=== PATIENT | female | born 1935 | race Caucasian/White ===

== ENCOUNTER 2016-12-04 16:06 | Outpatient (CLI) | payer MEDICARE ==
[2016-12-05 16:55] LABS: INR-International Normal Ratio 3.1; Prothrombin Time 31.7 SEC (12.0-14.7)
== END 2016-12-04 16:07 | disposition home or self-care (01) ==
LOC: MADLABBHPM 16:06
PROVIDERS: ATTEND Family Medicine
DX: I48.91 Unspecified atrial fibrillation (principal)
CPT/HCPCS: 36415; 85610

== ENCOUNTER 2016-12-11 14:57 | Outpatient (CLI) | payer MEDICARE ==
[2016-12-11 15:18] LABS: INR-International Normal Ratio 2.4; Prothrombin Time 26.4 SEC (12.0-14.7)
== END 2016-12-11 14:58 | disposition home or self-care (01) ==
LOC: MADLABBHPM 14:57
PROVIDERS: ATTEND Family Medicine
DX: I48.91 Unspecified atrial fibrillation (principal)
CPT/HCPCS: 36415; 85610

== ENCOUNTER 2016-12-21 11:58 | Outpatient (CLI) | payer MEDICARE ==
--- NOTE | 2016-12-21 14:15 | RAD ---
TWO VIEWS LEFT HIP: Indication: Chronic left hip pain. Comparison: None. IMPRESSION: No acute fracture or subluxation. 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 POS: [facility]
--- NOTE | 2016-12-21 14:16 | RAD ---
TWO VIEWS RIGHT HIP: Indication: Chronic right hip pain. FINDINGS: There is mild degenerative arthrosis of the right hip. No acute fracture or subluxation is evident. There is diffuse osteopenia. IMPRESSION: No acute osseous abnormality. POS: [facility]
== END 2016-12-21 11:59 | disposition home or self-care (01) ==
LOC: MADRAD 11:58
PROVIDERS: ATTEND Family Medicine
DX: M25.551 Pain in right hip (principal)

== ENCOUNTER 2016-12-25 14:46 | Outpatient (CLI) | payer MEDICARE ==
[2016-12-25 15:21] LABS: INR-International Normal Ratio 1.7; Prothrombin Time 20.3 SEC (12.0-14.7)
== END 2016-12-25 14:47 | disposition home or self-care (01) ==
LOC: MADLAB 14:46
PROVIDERS: ATTEND Family Medicine
DX: I48.91 Unspecified atrial fibrillation (principal)
CPT/HCPCS: 36415; 85610

== ENCOUNTER 2017-01-09 12:23 | Outpatient (CLI) | payer MEDICARE ==
[2017-01-09 12:48] LABS: INR-International Normal Ratio 1.6; Prothrombin Time 19.5 SEC (12.0-14.7)
== END 2017-01-09 12:24 | disposition home or self-care (01) ==
LOC: MADLABBHPM 12:23
PROVIDERS: ATTEND Family Medicine
DX: Z51.81 Encounter for therapeutic drug level monitoring (principal); Z79.01 Long term (current) use of anticoagulants; I48.91 Unspecified atrial fibrillation
CPT/HCPCS: 36415; 85610

== ENCOUNTER 2017-01-15 13:14 | Outpatient (CLI) | payer MEDICARE ==
[2017-01-15 13:33] LABS: INR-International Normal Ratio 2.7; Prothrombin Time 28.5 SEC (12.0-14.7)
== END 2017-01-15 13:15 | disposition home or self-care (01) ==
LOC: MADLABBHPM 13:14
PROVIDERS: ATTEND Family Medicine
DX: I48.91 Unspecified atrial fibrillation (principal)
CPT/HCPCS: 36415; 85610

== ENCOUNTER 2017-01-23 15:59 | Outpatient (CLI) | payer MEDICARE ==
[2017-01-23 16:25] LABS: INR-International Normal Ratio 2.7; Prothrombin Time 28.1 SEC (12.0-14.7)
== END 2017-01-23 16:00 | disposition home or self-care (01) ==
LOC: MADLAB 15:59
PROVIDERS: ATTEND Family Medicine
DX: I48.91 Unspecified atrial fibrillation (principal)
CPT/HCPCS: 36415; 85610

== ENCOUNTER 2017-02-20 12:21 | Outpatient (CLI) | payer MEDICARE ==
[2017-02-20 12:54] LABS: #Basophils 0.1 thou/uL (0.0-0.2); #Eosinphils 0.1 thou/uL (0.0-0.7); #Monocytes 0.6 thou/uL (0.11-0.59); #Neutrophils 2.3 thou/uL (1.40-6.50); %Eosinophils 1.3 % (0.0-10.0); %Lymphocytes 40.4 % (21.0-51.0); %Neutrophils 45.4 % (42.0-75.0); Hemoglobin 13.7 g/dL (12.0-16.0); Mean Corpuscular HGB CONC 32.8 g/dL (32.0-36.0); Mean Corpuscular Hemoglobin 31.3 pg (27.0-31.0); Mean Corpuscular Volume 95.6 fl (81.0-99.0); Mean Platelet Volume 6.6 fL (7.4-10.4); Platelet Count 232 thou/uL (130-400); RBC Distribution Width 12.6 % (11.5-14.5); Red Blood Cell (RBC) Count 4.39 mill/uL (4.20-5.40)
[2017-02-20 13:15] LABS: ALT (SGPT) 8 U/L (0-55); AST (SGOT) 26 U/L (5-34); Albumin 4.2 g/dL (3.4-4.8); Alkaline Phosphatase 69 U/L (40-150); Anion Gap 15 mmol/L (10-20); BUN (Urea Nitrogen) 15 mg/dL (9.8-20.1); Bilirubin, Direct 0.2 mg/dL (0.1-0.3); Bilirubin, Total 0.5 mg/dL (0.2-1.2); Calc. Creatinine Clearance 0 mL/min (70-130); Calcium 9.1 mg/dL (7.8-10.44); Carbon Dioxide 30 mmol/L (23-31); Cardiac Risk 5.3 (Less than 4.5); Chloride 100 mmol/L (98-107); Cholesterol 244 mg/dL (< 200 Desired); Estimated GFR-MDRD 59; Glucose 87 mg/dL (83-110); HDL Cholesterol 46 mg/dL (>60 Neg Risk); LDL Cholesterol, Calculated 181 mg/dL; Potassium 4.2 mmol/L (3.5-5.1); Protein, Total 7.1 g/dL (5.8-8.1); Sodium 141 mmol/L (136-145); Triglycerides 85 mg/dL (Less than 150)
== END 2017-02-20 12:22 | disposition home or self-care (01) ==
LOC: MADLABBHPM 12:21
PROVIDERS: ATTEND Family Medicine
DX: I48.91 Unspecified atrial fibrillation (principal); E03.9 Hypothyroidism, unspecified
CPT/HCPCS: 36415; 80048; 80061; 80076; 84443; 85025

== ENCOUNTER 2017-02-20 17:26 | Outpatient (CLI) | payer MEDICARE ==
[2017-02-20 17:44] LABS: INR-International Normal Ratio 2.8; Prothrombin Time 29.3 SEC (12.0-14.7)
== END 2017-02-20 17:27 ==
LOC: MADLABBHPM 17:26
PROVIDERS: ATTEND Family Medicine
DX: I48.91 Unspecified atrial fibrillation (principal)
CPT/HCPCS: 85610

== ENCOUNTER 2017-02-23 14:33 | Emergency (ER) | payer MEDICARE ==
[~2017-02-23 14:33] MED LIST: Sodium Chloride 0.9% 1,000 ML BAG ONE
[2017-02-23] MEDS ORDERED: Ondansetron HCl/PF 4 MG/2 ML Vial ONE (14:38)
[2017-02-23] MEDS ORDERED: Meclizine HCl 25 MG TAB ONE ×2 (15:04→15:41)
[2017-02-23] MEDS ORDERED: Aspirin 325 MG TAB ONE (15:04)
[2017-02-23 15:13] LABS: #Basophils 0.1 thou/uL (0.0-0.2); #Eosinphils 0.1 thou/uL (0.0-0.7); #Lymphocytes 2.5 thou/uL (1.20-3.40); #Monocytes 0.7 thou/uL (0.11-0.59); #Neutrophils 4.4 thou/uL (1.40-6.50); %Basophils 1.2 % (0.0-1.0); %Eosinophils 1.3 % (0.0-10.0); %Lymphocytes 31.6 % (21.0-51.0); %Monocytes 8.9 % (0.0-10.0); Hemoglobin 13.4 g/dL (12.0-16.0); Mean Corpuscular HGB CONC 33.7 g/dL (32.0-36.0); Mean Corpuscular Volume 94.8 fl (81.0-99.0); Mean Platelet Volume 6.5 fL (7.4-10.4); Platelet Count 235 thou/uL (130-400); RBC Distribution Width 12.3 % (11.5-14.5); White Blood Cell (WBC) Count 7.8 thou/uL (4.8-10.8)
[2017-02-23 15:24] LABS: ALT (SGPT) 8 U/L (0-55); AST (SGOT) 24 U/L (5-34); Alkaline Phosphatase 68 U/L (40-150); Anion Gap 16 mmol/L (10-20); BUN (Urea Nitrogen) 18 mg/dL (9.8-20.1); Bilirubin, Total 0.3 mg/dL (0.2-1.2); CK (CPK) 84 U/L (29-168); Calc. Creatinine Clearance 0 mL/min (70-130); Calcium 8.8 mg/dL (7.8-10.44); Carbon Dioxide 28 mmol/L (23-31); Chloride 99 mmol/L (98-107); Estimated GFR-MDRD 59; Globulin 2.9 g/dL (2.4-3.5); Glucose 111 mg/dL (83-110); Magnesium 2.3 mg/dL (1.6-2.6); Potassium 3.7 mmol/L (3.5-5.1); Protein, Total 6.9 g/dL (5.8-8.1); Sodium 139 mmol/L (136-145)
[2017-02-23 15:25] LABS: CKMB 1.6 ng/mL (0-6.6); Troponin I Less than 0.010 ng/mL (< 0.028)
--- NOTE | 2017-02-23 15:40 | CT ---
HEAD CT NONCONTRAST: INDICATION: New-onset dizziness with nausea. COMPARISON: Reference is made to 01/30/16. FINDINGS: Ventricular system is normal in size. No intracranial hemorrhage, mass effect, or midline shift. M ild chronic microvascular ischemic disease is present within the cerebral white matter. IMPRESSION: No acute intracranial hemorrhage or mass effect. POS: [facility]
--- NOTE | 2017-02-23 15:41 | RAD ---
FRONTAL VIEW CHEST: COMPARISON: 02/07/16. INDICATION: New-onset dizziness and nausea. FINDINGS: There is mild elevation of the left hemidiaphragm. Left-side cardiac pacing device remains. Cardia c silhouette is stable. No new consolidation, significant effusion, or pneumothorax. Osseous degen erative change is present. Overlying artifacts limit detail. IMPRESSION: No lobar consolidation. POS: [facility]
[2017-02-23 15:50] LABS: INR-International Normal Ratio 3.2; PTT 41.6 SEC (22.9-36.1); Prothrombin Time 32.2 SEC (12.0-14.7)
== END 2017-02-23 16:50 | disposition short-term general hospital (02) ==
LOC: MADERS 14:33
DX: H83.09 Labyrinthitis, unspecified ear (principal); Z95.0 Presence of cardiac pacemaker
CPT/HCPCS: 70450; 71010; 80053; 82550; 82553; 83735; 83880; 84443; 84484; 85025; 85610; 85730; 93005; 94760; 96361; 96374; J2405; J7050

== ENCOUNTER 2017-03-12 09:15 | Outpatient (CLI) | payer MEDICARE ==
[2017-03-12 10:02] LABS: INR-International Normal Ratio 2.8; Prothrombin Time 29.6 SEC (12.0-14.7)
== END 2017-03-12 09:16 | disposition home or self-care (01) ==
LOC: MADLABBHPM 09:15
PROVIDERS: ATTEND Family Medicine
DX: Z51.81 Encounter for therapeutic drug level monitoring (principal); I48.91 Unspecified atrial fibrillation; Z79.01 Long term (current) use of anticoagulants
CPT/HCPCS: 36415; 85610

== ENCOUNTER 2017-03-26 14:09 | Outpatient (CLI) | payer MEDICARE ==
[2017-03-26 15:28] LABS: Prothrombin Time 30.7 SEC (12.0-14.7)
== END 2017-03-26 14:10 | disposition home or self-care (01) ==
LOC: MADLABBHPM 14:09
PROVIDERS: ATTEND Family Medicine
DX: I48.91 Unspecified atrial fibrillation (principal)
CPT/HCPCS: 36415; 85610

== ENCOUNTER 2017-04-02 07:34 | Outpatient (CLI) | payer MEDICARE ==
[2017-04-02 10:11] LABS: ALT (SGPT) 9 U/L (8-55); AST (SGOT) 20 U/L (5-34); Albumin 3.9 g/dL (3.4-4.8); Alkaline Phosphatase 71 U/L (40-150); Anion Gap 14 mmol/L (10-20); BUN (Urea Nitrogen) 18 mg/dL (9.8-20.1); Bilirubin, Total 0.3 mg/dL (0.2-1.2); Calc. Creatinine Clearance 0 mL/min (70-130); Calcium 8.7 mg/dL (7.8-10.44); Carbon Dioxide 30 mmol/L (23-31); Cardiac Risk 4.8 (Less than 4.5); Chloride 101 mmol/L (98-107); Cholesterol 219 mg/dL (< 200 Desired); Estimated GFR-MDRD 58; Globulin 2.9 g/dL (2.4-3.5); Glucose 89 mg/dL (83-110); HDL Cholesterol 46 mg/dL (>60 Neg Risk); LDL Cholesterol, Calculated 153 mg/dL; Protein, Total 6.8 g/dL (5.8-8.1); Sodium 141 mmol/L (136-145); Triglycerides 100 mg/dL (Less than 150)
== END 2017-04-02 07:35 | disposition home or self-care (01) ==
LOC: MADLAB 07:34
PROVIDERS: ATTEND Internal Medicine Cardiovascular Disease
DX: E78.00 Pure hypercholesterolemia, unspecified (principal)
CPT/HCPCS: 36415; 80053; 80061; 84443

== ENCOUNTER 2017-04-09 13:13 | Outpatient (CLI) | payer MEDICARE ==
[2017-04-09 13:40] LABS: INR-International Normal Ratio 2.9
== END 2017-04-09 13:14 | disposition home or self-care (01) ==
LOC: MADLABBHPM 13:13
PROVIDERS: ATTEND Family Medicine
DX: I48.91 Unspecified atrial fibrillation (principal)
CPT/HCPCS: 36415; 85610

== ENCOUNTER 2017-04-23 13:29 | Outpatient (CLI) | payer MEDICARE ==
[2017-04-23 13:58] LABS: INR-International Normal Ratio 2.4; Prothrombin Time 26.3 SEC (12.0-14.7)
== END 2017-04-23 13:30 | disposition home or self-care (01) ==
LOC: MADLAB 13:29
PROVIDERS: ATTEND Family Medicine
DX: I48.91 Unspecified atrial fibrillation (principal)
CPT/HCPCS: 36415; 85610

== ENCOUNTER 2017-05-21 17:44 | Outpatient (CLI) | payer MEDICARE, OTHER ==
[2017-05-21 18:11] LABS: Prothrombin Time 38.1 SEC (12.0-14.7)
== END 2017-05-21 17:45 | disposition home or self-care (01) ==
LOC: MADLAB 17:44
PROVIDERS: ATTEND Family Medicine
DX: I48.91 Unspecified atrial fibrillation (principal)
CPT/HCPCS: 85610

== ENCOUNTER 2017-05-24 15:44 | Outpatient (CLI) | payer MEDICARE, OTHER ==
[2017-05-24 16:02] LABS: INR-International Normal Ratio 1.8; Prothrombin Time 20.8 SEC (12.0-14.7)
== END 2017-05-24 15:45 | disposition home or self-care (01) ==
LOC: MADLABBHPM 15:44
PROVIDERS: ATTEND Family Medicine
DX: I48.91 Unspecified atrial fibrillation (principal)
CPT/HCPCS: 36415; 85610

== ENCOUNTER 2017-05-31 11:38 | Outpatient (CLI) | payer MEDICARE ==
[2017-05-31 12:32] LABS: INR-International Normal Ratio 2.1; Prothrombin Time 23.9 SEC (12.0-14.7)
== END 2017-05-31 11:39 | disposition home or self-care (01) ==
LOC: MADLABBHPM 11:38
PROVIDERS: ATTEND Family Medicine
DX: I48.91 Unspecified atrial fibrillation (principal)
CPT/HCPCS: 36415; 85610

== ENCOUNTER 2017-06-11 16:09 | Outpatient (CLI) | payer MEDICARE ==
[2017-06-11 16:30] LABS: INR-International Normal Ratio 2.8; Prothrombin Time 29.1 SEC (12.0-14.7)
== END 2017-06-11 16:10 | disposition home or self-care (01) ==
LOC: MADLAB 16:09
PROVIDERS: ATTEND Family Medicine
DX: I48.91 Unspecified atrial fibrillation (principal)
CPT/HCPCS: 36415; 85610

== ENCOUNTER 2017-07-09 15:32 | Outpatient (CLI) | payer MEDICARE ==
[2017-07-09 15:58] LABS: INR-International Normal Ratio 2.6; Prothrombin Time 29.1 SEC (12.0-14.7)
== END 2017-07-09 15:33 | disposition home or self-care (01) ==
LOC: MADLABBHPM 15:32
PROVIDERS: ATTEND Family Medicine
DX: Z51.81 Encounter for therapeutic drug level monitoring (principal); I48.91 Unspecified atrial fibrillation; Z79.01 Long term (current) use of anticoagulants
CPT/HCPCS: 36415; 85610

== ENCOUNTER 2017-07-23 15:24 | Outpatient (CLI) | payer MEDICARE ==
[2017-07-23 16:03] LABS: INR-International Normal Ratio 2.2; Prothrombin Time 24.8 SEC (12.0-14.7)
== END 2017-07-23 15:25 | disposition home or self-care (01) ==
LOC: MADLABBHPM 15:24
PROVIDERS: ATTEND Family Medicine
DX: Z51.81 Encounter for therapeutic drug level monitoring (principal); I48.91 Unspecified atrial fibrillation; Z79.899 Other long term (current) drug therapy
CPT/HCPCS: 36415; 85610

== ENCOUNTER 2017-07-27 07:45 | Outpatient (CLI) | payer MEDICARE ==
[2017-07-27 08:42] LABS: ALT (SGPT) 12 U/L (8-55); AST (SGOT) 21 U/L (5-34); Albumin 3.9 g/dL (3.4-4.8); Alkaline Phosphatase 77 U/L (40-150); Anion Gap 11 mmol/L (10-20); BUN (Urea Nitrogen) 16 mg/dL (9.8-20.1); Bilirubin, Direct 0.1 mg/dL (0.1-0.3); Bilirubin, Total 0.4 mg/dL (0.2-1.2); Calc. Creatinine Clearance 0 mL/min (70-130); Calcium 9.1 mg/dL (7.8-10.44); Carbon Dioxide 32 mmol/L (23-31); Cardiac Risk 4.7 (Less than 4.5); Chloride 102 mmol/L (98-107); Cholesterol 225 mg/dl (< 200 Desired); Estimated GFR-MDRD 62; Glucose 89 mg/dL (83-110); HDL Cholesterol 48 mg/dL (>60 Neg Risk); LDL Cholesterol, Calculated 151 mg/dL; Potassium 4.3 mmol/L (3.5-5.1); Protein, Total 7.2 g/dL (6.0-8.3); Sodium 141 mmol/L (136-145); Triglycerides 130 mg/dL (Less than 150)
[2017-07-27 08:50] LABS: #Basophils 0.1 thou/uL (0.0-0.2); #Eosinphils 0.1 thou/uL (0.0-0.7); #Lymphocytes 2.1 thou/uL (1.20-3.40); #Monocytes 0.5 thou/uL (0.11-0.59); #Neutrophils 2.7 thou/uL (1.40-6.50); %Basophils 1.2 % (0.0-1.0); %Eosinophils 1.8 % (0.0-10.0); %Lymphocytes 38.9 % (21.0-51.0); Hemoglobin 13.7 g/dL (12.0-16.0); Mean Corpuscular HGB CONC 30.7 g/dL (32.0-36.0); Mean Corpuscular Hemoglobin 30.2 pg (27.0-31.0); Mean Corpuscular Volume 98.2 fl (81.0-99.0); Mean Platelet Volume 7.2 fL (7.4-10.4); Platelet Count 238 thou/uL (130-400); RBC Distribution Width 12.6 % (11.5-14.5); Red Blood Cell (RBC) Count 4.53 mill/uL (4.20-5.40); White Blood Cell (WBC) Count 5.5 thou/uL (4.8-10.8)
== END 2017-07-27 07:46 | disposition home or self-care (01) ==
LOC: MADLABBHPM 07:45
PROVIDERS: ATTEND Family Medicine
DX: E78.5 Hyperlipidemia, unspecified (principal); N18.3 Chronic kidney disease, stage 3 (moderate)
CPT/HCPCS: 36415; 80048; 80061; 80076; 85025

== ENCOUNTER 2017-08-06 15:43 | Outpatient (CLI) | payer MEDICARE ==
[2017-08-06 16:15] LABS: INR-International Normal Ratio 2.3; Prothrombin Time 26.2 SEC (12.0-14.7)
== END 2017-08-06 15:44 | disposition home or self-care (01) ==
LOC: MADLABBHPM 15:43
PROVIDERS: ATTEND Family Medicine
DX: Z51.81 Encounter for therapeutic drug level monitoring (principal); I48.91 Unspecified atrial fibrillation; Z79.01 Long term (current) use of anticoagulants
CPT/HCPCS: 36415; 85610

== ENCOUNTER 2017-09-17 14:28 | Outpatient (CLI) | payer MEDICARE ==
[2017-09-17 14:51] LABS: INR-International Normal Ratio 2.4; Prothrombin Time 27.4 SEC (12.0-14.7)
== END 2017-09-17 14:29 | disposition home or self-care (01) ==
LOC: MADLABBHPM 14:28
PROVIDERS: ATTEND Family Medicine
DX: I48.91 Unspecified atrial fibrillation (principal)
CPT/HCPCS: 36415; 85610

== ENCOUNTER 2017-11-12 15:53 | Outpatient (CLI) | payer MEDICARE ==
[2017-11-12 18:16] LABS: INR-International Normal Ratio 1.7; Prothrombin Time 20.7 SEC (12.0-14.7)
== END 2017-11-12 15:54 | disposition home or self-care (01) ==
LOC: MADLAB 15:53
PROVIDERS: ATTEND Family Medicine
DX: Z51.81 Encounter for therapeutic drug level monitoring (principal); I48.91 Unspecified atrial fibrillation; Z79.01 Long term (current) use of anticoagulants
CPT/HCPCS: 36415; 85610

== ENCOUNTER 2017-12-11 13:03 | Outpatient (CLI) | payer MEDICARE ==
[2017-12-11 14:52] LABS: INR-International Normal Ratio 1.4; Prothrombin Time 17.8 SEC (12.0-14.7)
== END 2017-12-11 13:04 | disposition home or self-care (01) ==
LOC: MADLABBHPM 13:03
PROVIDERS: ATTEND Family Medicine
DX: Z51.81 Encounter for therapeutic drug level monitoring (principal); I48.91 Unspecified atrial fibrillation; Z79.01 Long term (current) use of anticoagulants
CPT/HCPCS: 36415; 85610

== ENCOUNTER 2017-12-18 13:38 | Outpatient (CLI) | payer MEDICARE ==
[2017-12-18 13:59] LABS: INR-International Normal Ratio 2.1; Prothrombin Time 24.1 SEC (12.0-14.7)
== END 2017-12-18 13:39 | disposition home or self-care (01) ==
LOC: MADLABBHPM 13:38
PROVIDERS: ATTEND Family Medicine
DX: I48.91 Unspecified atrial fibrillation (principal)
CPT/HCPCS: 36415; 85610

== ENCOUNTER 2018-01-21 16:15 | Outpatient (CLI) | payer MEDICARE ==
[2018-01-21 16:43] LABS: Prothrombin Time 22.9 SEC (12.0-14.7)
== END 2018-01-21 16:16 | disposition home or self-care (01) ==
LOC: MADLABBHPM 16:15
PROVIDERS: ATTEND Family Medicine
DX: Z51.81 Encounter for therapeutic drug level monitoring (principal); I48.91 Unspecified atrial fibrillation; Z79.01 Long term (current) use of anticoagulants
CPT/HCPCS: 36415; 85610

== ENCOUNTER 2018-02-18 15:38 | Outpatient (CLI) | payer MEDICARE ==
[2018-02-18 16:22] LABS: INR-International Normal Ratio 1.9; Prothrombin Time 22.5 SEC (12.0-14.7)
== END 2018-02-18 15:39 | disposition home or self-care (01) ==
LOC: MADLABBHPM 15:38
PROVIDERS: ATTEND Family Medicine
DX: Z51.81 Encounter for therapeutic drug level monitoring (principal); I48.91 Unspecified atrial fibrillation; Z79.01 Long term (current) use of anticoagulants
CPT/HCPCS: 36415; 85610

== ENCOUNTER 2018-02-25 12:38 | Outpatient (CLI) | payer MEDICARE ==
[2018-02-25 13:33] LABS: ALT (SGPT) 15 U/L (8-55); AST (SGOT) 29 U/L (5-34); Albumin 4.1 g/dL (3.4-4.8); Alkaline Phosphatase 69 U/L (40-150); Anion Gap 15 mmol/L (10-20); BUN (Urea Nitrogen) 17 mg/dL (9.8-20.1); Bilirubin, Total 0.3 mg/dL (0.2-1.2); Calc. Creatinine Clearance 0 mL/min (70-130); Calcium 8.7 mg/dL (7.8-10.44); Carbon Dioxide 28 mmol/L (23-31); Chloride 102 mmol/L (98-107); Estimated GFR-MDRD 60; Globulin 2.7 g/dL (2.4-3.5); Glucose 78 mg/dL (83-110); Potassium 4.3 mmol/L (3.5-5.1); Protein, Total 6.8 g/dL (6.0-8.3); Sodium 141 mmol/L (136-145)
== END 2018-02-25 12:39 | disposition home or self-care (01) ==
LOC: MADLAB 12:38
PROVIDERS: ATTEND Internal Medicine Cardiovascular Disease
DX: E78.00 Pure hypercholesterolemia, unspecified (principal); I48.91 Unspecified atrial fibrillation; I10 Essential (primary) hypertension; Z79.01 Long term (current) use of anticoagulants
CPT/HCPCS: 36415; 80053

== ENCOUNTER 2018-03-18 15:57 | Outpatient (CLI) | payer MEDICARE ==
[2018-03-18 16:53] LABS: INR-International Normal Ratio 3.1; Prothrombin Time 33.2 SEC (12.0-14.7)
== END 2018-03-18 15:58 | disposition home or self-care (01) ==
LOC: MADLAB 15:57
PROVIDERS: ATTEND Family Medicine
DX: Z51.81 Encounter for therapeutic drug level monitoring (principal); I48.91 Unspecified atrial fibrillation; Z79.01 Long term (current) use of anticoagulants
CPT/HCPCS: 36415; 85610

== ENCOUNTER 2018-03-25 15:08 | Outpatient (CLI) | payer MEDICARE ==
[2018-03-25 15:59] LABS: Prothrombin Time 32.5 SEC (12.0-14.7)
== END 2018-03-25 15:09 | disposition home or self-care (01) ==
LOC: MADRAD 15:08
PROVIDERS: ATTEND Family Medicine
DX: Z51.81 Encounter for therapeutic drug level monitoring (principal); I48.91 Unspecified atrial fibrillation; Z79.01 Long term (current) use of anticoagulants
CPT/HCPCS: 36415; 85610

== ENCOUNTER 2018-04-09 09:46 | Outpatient (CLI) | payer MEDICARE ==
[2018-04-09 17:05] LABS: INR-International Normal Ratio 3.9; Prothrombin Time 39.8 SEC (12.0-14.7)
== END 2018-04-09 09:47 | disposition home or self-care (01) ==
LOC: MADLABBHPM 09:46
PROVIDERS: ATTEND Family Medicine
DX: Z51.81 Encounter for therapeutic drug level monitoring (principal); I48.91 Unspecified atrial fibrillation; Z79.01 Long term (current) use of anticoagulants
CPT/HCPCS: 36415; 85610

== ENCOUNTER 2018-04-23 12:15 | Outpatient (CLI) | payer MEDICARE ==
[2018-04-23 12:57] LABS: INR-International Normal Ratio 3.1; Prothrombin Time 33.4 SEC (12.0-14.7)
== END 2018-04-23 12:16 | disposition home or self-care (01) ==
LOC: MADLAB 12:15
PROVIDERS: ATTEND Family Medicine
DX: Z51.81 Encounter for therapeutic drug level monitoring (principal); I48.91 Unspecified atrial fibrillation; Z79.01 Long term (current) use of anticoagulants
CPT/HCPCS: 36415; 85610

== ENCOUNTER 2018-04-30 14:22 | Outpatient (CLI) | payer MEDICARE ==
[2018-04-30 14:59] LABS: INR-International Normal Ratio 2.5
== END 2018-04-30 14:23 | disposition home or self-care (01) ==
LOC: MADLABBHPM 14:22
PROVIDERS: ATTEND Family Medicine
DX: Z51.81 Encounter for therapeutic drug level monitoring (principal); I48.91 Unspecified atrial fibrillation; Z79.01 Long term (current) use of anticoagulants
CPT/HCPCS: 36415; 85610

== ENCOUNTER 2018-05-07 16:55 | Outpatient (CLI) | payer MEDICARE ==
[2018-05-07 17:22] LABS: INR-International Normal Ratio 2.6; Prothrombin Time 28.8 SEC (12.0-14.7)
== END 2018-05-07 16:56 | disposition home or self-care (01) ==
LOC: MADLAB 16:55
PROVIDERS: ATTEND Family Medicine
DX: Z51.81 Encounter for therapeutic drug level monitoring (principal); I48.91 Unspecified atrial fibrillation; Z79.01 Long term (current) use of anticoagulants
CPT/HCPCS: 36415; 85610

== ENCOUNTER 2018-06-04 14:40 | Outpatient (CLI) | payer MEDICARE ==
[2018-06-04 15:02] LABS: INR-International Normal Ratio 2.1; Prothrombin Time 23.6 SEC (12.0-14.7)
== END 2018-06-04 14:41 | disposition home or self-care (01) ==
LOC: MADLABBHPM 14:40
PROVIDERS: ATTEND Family Medicine
DX: Z51.81 Encounter for therapeutic drug level monitoring (principal); I48.91 Unspecified atrial fibrillation; Z79.01 Long term (current) use of anticoagulants
CPT/HCPCS: 36415; 85610

== ENCOUNTER 2018-07-19 11:21 | Outpatient (CLI) | payer MEDICARE ==
[2018-07-19 11:47] LABS: Prothrombin Time 22.5 SEC (12.0-14.7)
== END 2018-07-19 11:22 | disposition home or self-care (01) ==
LOC: MADLAB 11:21
PROVIDERS: ATTEND Family Medicine
DX: Z51.81 Encounter for therapeutic drug level monitoring (principal); I48.91 Unspecified atrial fibrillation; Z79.01 Long term (current) use of anticoagulants
CPT/HCPCS: 36415; 85610

== ENCOUNTER 2018-07-30 09:21 | Outpatient (CLI) | payer MEDICARE ==
[2018-07-30 10:47] LABS: INR-International Normal Ratio 2.5; Prothrombin Time 27.3 SEC (12.0-14.7)
[2018-07-30 10:48] LABS: #Basophils 0.1 thou/uL (0.0-0.2); #Eosinphils 0.1 thou/uL (0.0-0.7); #Lymphocytes 1.8 thou/uL (1.20-3.40); #Monocytes 0.6 thou/uL (0.11-0.59); #Neutrophils 3.7 thou/uL (1.40-6.50); %Eosinophils 0.9 % (0.0-10.0); %Lymphocytes 29.2 % (21.0-51.0); %Monocytes 9.3 % (0.0-10.0); %Neutrophils 59.6 % (42.0-75.0); Hemoglobin 14.4 g/dL (12.0-16.0); Mean Corpuscular HGB CONC 33.5 g/dL (32.0-36.0); Mean Corpuscular Hemoglobin 31.2 pg (27.0-31.0); Mean Corpuscular Volume 93.1 fL (78.0-98.0); Mean Platelet Volume 6.1 fL (7.4-10.4); Platelet Count 266 thou/uL (130-400); RBC Distribution Width 12.6 % (11.5-14.5); Red Blood Cell (RBC) Count 4.62 mill/uL (4.20-5.40); White Blood Cell (WBC) Count 6.1 thou/uL (4.8-10.8)
[2018-07-30 10:56] LABS: ALT (SGPT) 11 U/L (8-55); AST (SGOT) 25 U/L (5-34); Albumin 4.2 g/dL (3.4-4.8); Alkaline Phosphatase 71 U/L (40-150); Anion Gap 12 mmol/L (10-20); BUN (Urea Nitrogen) 20 mg/dL (9.8-20.1); Bilirubin, Direct 0.2 mg/dL (0.1-0.3); Bilirubin, Total 0.6 mg/dL (0.2-1.2); Calc. Creatinine Clearance 0 mL/min (70-130); Calcium 9.3 mg/dL (7.8-10.44); Carbon Dioxide 34 mmol/L (23-31); Cardiac Risk 3.8 (Less than 4.5); Chloride 100 mmol/L (98-107); Cholesterol 196 mg/dl (< 200 Desired); Estimated GFR-MDRD 56; Glucose 89 mg/dL (83-110); HDL Cholesterol 52 mg/dL (>60 Neg Risk); LDL Cholesterol, Calculated 128 mg/dL; Potassium 4.1 mmol/L (3.5-5.1); Protein, Total 7.4 g/dL (6.0-8.3); Sodium 142 mmol/L (136-145); Triglycerides 79 mg/dL (Less than 150)
== END 2018-07-30 09:22 | disposition home or self-care (01) ==
LOC: MADLABBHPM 09:21
PROVIDERS: ATTEND Family Medicine
DX: N18.3 Chronic kidney disease, stage 3 (moderate) (principal); E03.9 Hypothyroidism, unspecified; E78.5 Hyperlipidemia, unspecified; I48.91 Unspecified atrial fibrillation
CPT/HCPCS: 36415; 80048; 80061; 80076; 84443; 85025; 85610

== ENCOUNTER 2018-08-19 13:12 | Outpatient (CLI) | payer MEDICARE ==
[2018-08-19 13:36] LABS: INR-International Normal Ratio 2.3; Prothrombin Time 25.1 SEC (12.0-14.7)
== END 2018-08-19 13:13 | disposition home or self-care (01) ==
LOC: MADLABBHPM 13:12
PROVIDERS: ATTEND Family Medicine
DX: Z51.81 Encounter for therapeutic drug level monitoring (principal); I48.91 Unspecified atrial fibrillation; Z79.01 Long term (current) use of anticoagulants
CPT/HCPCS: 36415; 85610

== ENCOUNTER 2018-09-25 11:19 | Outpatient (CLI) | payer MEDICARE ==
[2018-09-25 11:49] LABS: INR-International Normal Ratio 1.7; Prothrombin Time 20.3 SEC (12.0-14.7)
== END 2018-09-25 11:20 | disposition home or self-care (01) ==
LOC: MADLABBHPM 11:19
PROVIDERS: ATTEND Family Medicine
DX: Z51.81 Encounter for therapeutic drug level monitoring (principal); I48.91 Unspecified atrial fibrillation; Z79.01 Long term (current) use of anticoagulants
CPT/HCPCS: 36415; 85610

== ENCOUNTER 2018-10-02 10:44 | Outpatient (CLI) | payer MEDICARE ==
[2018-10-02 11:44] LABS: INR-International Normal Ratio 2.7; Prothrombin Time 28.8 SEC (12.0-14.7)
== END 2018-10-02 10:45 | disposition home or self-care (01) ==
LOC: MADLABBHPM 10:44
PROVIDERS: ATTEND Family Medicine
DX: Z51.81 Encounter for therapeutic drug level monitoring (principal); I48.91 Unspecified atrial fibrillation; Z79.01 Long term (current) use of anticoagulants
CPT/HCPCS: 36415; 85610

== ENCOUNTER 2018-10-28 14:22 | Outpatient (CLI) | payer MEDICARE ==
[2018-10-28 14:44] LABS: #Basophils 0.1 thou/uL (0.0-0.2); #Lymphocytes 2.1 thou/uL (1.20-3.40); #Monocytes 0.4 thou/uL (0.11-0.59); #Neutrophils 4.5 thou/uL (1.40-6.50); %Basophils 0.9 % (0.0-1.0); %Eosinophils 0.6 % (0.0-10.0); %Lymphocytes 28.9 % (21.0-51.0); %Neutrophils 63.6 % (42.0-75.0); Hemoglobin 13.6 g/dL (12.0-16.0); Mean Corpuscular HGB CONC 31.7 g/dL (32.0-36.0); Mean Corpuscular Hemoglobin 31.2 pg (27.0-31.0); Mean Corpuscular Volume 98.4 fL (78.0-98.0); Mean Platelet Volume 7.2 fL (7.4-10.4); Platelet Count 233 thou/uL (130-400); RBC Distribution Width 12.5 % (11.5-14.5); Red Blood Cell (RBC) Count 4.35 mill/uL (4.20-5.40); White Blood Cell (WBC) Count 7.1 thou/uL (4.8-10.8)
[2018-10-28 15:08] LABS: Prothrombin Time 22.3 SEC (12.0-14.7)
[2018-10-28 15:18] LABS: ALT (SGPT) 8 U/L (8-55); AST (SGOT) 22 U/L (5-34); Albumin 4.1 g/dL (3.4-4.8); Alkaline Phosphatase 64 U/L (40-150); Anion Gap 12 mmol/L (10-20); BUN (Urea Nitrogen) 23 mg/dL (9.8-20.1); Bilirubin, Direct 0.2 mg/dL (0.1-0.3); Bilirubin, Total 0.4 mg/dL (0.2-1.2); Calc. Creatinine Clearance 0 mL/min (70-130); Calcium 8.9 mg/dL (7.8-10.44); Carbon Dioxide 32 mmol/L (23-31); Cardiac Risk 3.9 (Less than 4.5); Chloride 98 mmol/L (98-107); Cholesterol 201 mg/dl (< 200 Desired); Estimated GFR-MDRD 61; Glucose 88 mg/dL (83-110); HDL Cholesterol 51 mg/dL (>60 Neg Risk); LDL Cholesterol, Calculated 129 mg/dL; Potassium 4.3 mmol/L (3.5-5.1); Protein, Total 7.4 g/dL (6.0-8.3); Sodium 138 mmol/L (136-145); Triglycerides 105 mg/dL (Less than 150)
== END 2018-10-28 14:23 | disposition home or self-care (01) ==
LOC: MADLABBHPM 14:22
PROVIDERS: ATTEND Family Medicine
DX: N18.3 Chronic kidney disease, stage 3 (moderate) (principal); E78.5 Hyperlipidemia, unspecified
CPT/HCPCS: 36415; 80048; 80061; 80076; 85025; 85610

== ENCOUNTER 2018-11-25 13:37 | Outpatient (CLI) | payer MEDICARE ==
[2018-11-25 14:44] LABS: INR-International Normal Ratio 2.5; Prothrombin Time 26.8 SEC (12.0-14.7)
== END 2018-11-25 13:38 | disposition home or self-care (01) ==
LOC: MADLAB 13:37
PROVIDERS: ATTEND Family Medicine
DX: Z51.81 Encounter for therapeutic drug level monitoring (principal); I48.91 Unspecified atrial fibrillation; Z79.01 Long term (current) use of anticoagulants
CPT/HCPCS: 36415; 85610

== ENCOUNTER 2018-12-23 14:37 | Outpatient (CLI) | payer MEDICARE ==
[2018-12-23 15:39] LABS: Prothrombin Time 22.8 SEC (12.0-14.7)
== END 2018-12-23 14:38 | disposition home or self-care (01) ==
LOC: MADLABBHPM 14:37
PROVIDERS: ATTEND Family Medicine
DX: Z51.81 Encounter for therapeutic drug level monitoring (principal); I48.91 Unspecified atrial fibrillation; Z79.01 Long term (current) use of anticoagulants
CPT/HCPCS: 36415; 85610

== ENCOUNTER 2019-01-13 13:07 | Outpatient (CLI) | payer MEDICARE ==
[2019-01-13 13:39] LABS: INR-International Normal Ratio 2.2; Prothrombin Time 24.1 SEC (12.0-14.7)
== END 2019-01-13 13:08 | disposition home or self-care (01) ==
LOC: MADLABBHPM 13:07
PROVIDERS: ATTEND Family Medicine
DX: Z51.81 Encounter for therapeutic drug level monitoring (principal); I48.91 Unspecified atrial fibrillation; Z79.01 Long term (current) use of anticoagulants
CPT/HCPCS: 36415; 85610

== ENCOUNTER 2019-02-07 09:00 | Outpatient (CLI) | payer MEDICARE ==
[2019-02-07 10:05] LABS: #Basophils 0.1 thou/uL (0.0-0.2); #Eosinphils 0.1 thou/uL (0.0-0.7); #Lymphocytes 1.5 thou/uL (1.20-3.40); #Monocytes 0.5 thou/uL (0.11-0.59); #Neutrophils 2.3 thou/uL (1.40-6.50); %Basophils 1.4 % (0.0-1.0); %Eosinophils 2.2 % (0.0-10.0); %Lymphocytes 33.5 % (21.0-51.0); %Monocytes 10.9 % (0.0-10.0); %Neutrophils 51.9 % (42.0-75.0); Hemoglobin 13.5 g/dL (12.0-16.0); Mean Corpuscular HGB CONC 30.8 g/dL (32.0-36.0); Mean Corpuscular Hemoglobin 30.2 pg (27.0-31.0); Mean Platelet Volume 6.8 fL (7.4-10.4); Platelet Count 243 thou/uL (130-400); RBC Distribution Width 12.8 % (11.5-14.5); Red Blood Cell (RBC) Count 4.46 mill/uL (4.20-5.40); White Blood Cell (WBC) Count 4.4 thou/uL (4.8-10.8)
[2019-02-07 10:20] LABS: INR-International Normal Ratio 1.7; Prothrombin Time 20.3 SEC (12.0-14.7)
[2019-02-07 10:21] LABS: ALT (SGPT) 12 U/L (8-55); AST (SGOT) 23 U/L (5-34); Albumin 4.2 g/dL (3.4-4.8); Alkaline Phosphatase 63 U/L (40-150); Anion Gap 11 mmol/L (10-20); BUN (Urea Nitrogen) 14 mg/dL (9.8-20.1); Bilirubin, Direct 0.2 mg/dL (0.1-0.3); Bilirubin, Total 0.3 mg/dL (0.2-1.2); Calc. Creatinine Clearance 0 mL/min (70-130); Calcium 9.4 mg/dL (7.8-10.44); Carbon Dioxide 33 mmol/L (23-31); Cardiac Risk 3.4 (Less than 4.5); Chloride 101 mmol/L (98-107); Cholesterol 201 mg/dl (< 200 Desired); Estimated GFR-MDRD 65; Glucose 90 mg/dL (83-110); HDL Cholesterol 59 mg/dL (>60 Neg Risk); LDL Cholesterol, Calculated 122 mg/dL; Potassium 4.1 mmol/L (3.5-5.1); Protein, Total 7.5 g/dL (6.0-8.3); Sodium 141 mmol/L (136-145); Triglycerides 100 mg/dL (Less than 150)
[2019-02-07 13:03] LABS: Bilirubin Negative (Negative); Blood, Urine Trace (Negative); Clarity Clear (Clear); Glucose, Urine (Dipstick) Negative (Negative); Leukocyte Trace (Negative); Nitrite Negative (Negative); Protein, Urine (Dipstick) Negative (Neg-Trace); Urobilinogen 0.2 mg/dL (0.2-1.0)
[2019-02-07 13:16] LABS: Bacteria/HPF 1+ HPF (None Seen); RBC/HPF 0-3 HPF (0-3)
== END 2019-02-07 09:01 | disposition home or self-care (01) ==
LOC: MADLABBHPM 09:00
PROVIDERS: ATTEND Family Medicine
DX: Z51.81 Encounter for therapeutic drug level monitoring (principal); N18.3 Chronic kidney disease, stage 3 (moderate); I48.91 Unspecified atrial fibrillation; E78.5 Hyperlipidemia, unspecified; R30.0 Dysuria; Z79.01 Long term (current) use of anticoagulants
CPT/HCPCS: 36415; 80048; 80061; 80076; 81001; 85025; 85610; 87077; 87086; 87186

== ENCOUNTER 2019-02-07 21:09 | Emergency (ER) | payer MEDICARE ==
[2019-02-07] MEDS ORDERED: Gabapentin 100 MG CAP ONE (21:45)
[2019-02-07] MEDS ORDERED: Lorazepam 1 MG TAB ONE (22:31)
[2019-02-07] MEDS ORDERED: Propranolol 10 MG TAB ONE (22:49)
== END 2019-02-07 23:05 | disposition home or self-care (01) ==
LOC: MADERS 21:09
DX: G62.9 Polyneuropathy, unspecified (principal); R25.1 Tremor, unspecified; I25.10 Atherosclerotic heart disease of native coronary artery without angina pectoris; E03.9 Hypothyroidism, unspecified; E78.5 Hyperlipidemia, unspecified; E78.1 Pure hyperglyceridemia; Z79.01 Long term (current) use of anticoagulants; Z79.82 Long term (current) use of aspirin; Z79.899 Other long term (current) drug therapy
CPT/HCPCS: 36415; 80048; 80061; 80076; 81001; 85025; 85610; 87077; 87086; 87186; 93005

== ENCOUNTER 2019-02-21 12:22 | Outpatient (CLI) | payer MEDICARE ==
[2019-02-21 13:00] LABS: Bilirubin Negative (Negative); Blood, Urine Negative (Negative); Clarity Clear (Clear); Glucose, Urine (Dipstick) Negative (Negative); Leukocyte Negative (Negative); Nitrite Negative (Negative); Protein, Urine (Dipstick) Negative (Neg-Trace); Urobilinogen 0.2 mg/dL (0.2-1.0)
[2019-02-21 13:02] LABS: RBC/HPF 0-3 HPF (0-3)
[2019-02-21 13:03] LABS: Bacteria/HPF Rare-Few HPF (None Seen); Squamous Epithelial 0-3 HPF (0-3); WBC/HPF 0-3 HPF (0-3)
== END 2019-02-21 12:23 ==
LOC: MADLABBHPM 12:22
PROVIDERS: ATTEND Family Medicine
DX: Z51.81 Encounter for therapeutic drug level monitoring (principal); D68.51 Activated protein C resistance; R30.0 Dysuria; Z79.01 Long term (current) use of anticoagulants
CPT/HCPCS: 81001; 87086

== ENCOUNTER 2019-03-17 13:55 | Outpatient (CLI) | payer MEDICARE ==
[2019-03-17 14:39] LABS: Prothrombin Time 23.1 SEC (12.0-14.7)
== END 2019-03-17 13:56 | disposition home or self-care (01) ==
LOC: MADLABBHPM 13:55
PROVIDERS: ATTEND Family Medicine
DX: Z51.81 Encounter for therapeutic drug level monitoring (principal); I48.91 Unspecified atrial fibrillation; Z79.01 Long term (current) use of anticoagulants
CPT/HCPCS: 36415; 85610

== ENCOUNTER 2019-05-26 12:22 | Outpatient (CLI) | payer MEDICARE ==
[2019-05-26 13:19] LABS: INR-International Normal Ratio 2.2; Prothrombin Time 24.6 SEC (12.0-14.7)
== END 2019-05-26 12:23 | disposition home or self-care (01) ==
LOC: MADLABBHPM 12:22
PROVIDERS: ATTEND Family Medicine
DX: Z51.81 Encounter for therapeutic drug level monitoring (principal); I48.91 Unspecified atrial fibrillation; Z79.01 Long term (current) use of anticoagulants
CPT/HCPCS: 36415; 85610

== ENCOUNTER 2019-06-25 10:17 | Outpatient (CLI) | payer MEDICARE ==
[2019-06-25 10:55] LABS: INR-International Normal Ratio 2.6
== END 2019-06-25 10:18 | disposition home or self-care (01) ==
LOC: MADLABBHPM 10:17
PROVIDERS: ATTEND Family Medicine
DX: I48.91 Unspecified atrial fibrillation (principal)
CPT/HCPCS: 36415; 85610

== ENCOUNTER 2019-07-30 11:51 | Outpatient (CLI) | payer MEDICARE ==
[2019-07-30 12:13] LABS: INR-International Normal Ratio 2.4; Prothrombin Time 25.9 SEC (12.0-14.7)
== END 2019-07-30 11:52 | disposition home or self-care (01) ==
LOC: MADLABBHPM 11:51
PROVIDERS: ATTEND Family Medicine
DX: I48.91 Unspecified atrial fibrillation (principal)
CPT/HCPCS: 36415; 85610

== ENCOUNTER 2019-08-28 10:07 | Outpatient (CLI) | payer MEDICARE ==
[2019-08-28 10:59] LABS: INR-International Normal Ratio 2.9; Prothrombin Time 30.4 SEC (12.0-14.7)
== END 2019-08-28 10:08 | disposition home or self-care (01) ==
LOC: MADLABBHPM 10:07
PROVIDERS: ATTEND Family Medicine
DX: I48.91 Unspecified atrial fibrillation (principal)
CPT/HCPCS: 36415; 85610

== ENCOUNTER 2019-09-30 12:27 | Outpatient (CLI) | payer MEDICARE ==
[2019-09-30 13:10] LABS: INR-International Normal Ratio 2.8; Prothrombin Time 29.6 SEC (12.0-14.7)
== END 2019-09-30 12:28 | disposition home or self-care (01) ==
LOC: MADLABBHPM 12:27
PROVIDERS: ATTEND Family Medicine
DX: I48.91 Unspecified atrial fibrillation (principal)
CPT/HCPCS: 85610

== ENCOUNTER 2019-10-20 13:52 | Outpatient (CLI) | payer MEDICARE ==
[2019-10-20 14:20] LABS: INR-International Normal Ratio 2.2; Prothrombin Time 24.2 SEC (12.0-14.7)
== END 2019-10-20 13:53 | disposition home or self-care (01) ==
LOC: MADLAB 13:52
PROVIDERS: ATTEND Family Medicine
DX: Z51.81 Encounter for therapeutic drug level monitoring (principal); I48.91 Unspecified atrial fibrillation; Z79.01 Long term (current) use of anticoagulants
CPT/HCPCS: 36415; 85610

== ENCOUNTER 2019-12-03 11:53 | Outpatient (CLI) | payer MEDICARE ==
[2019-12-03 12:18] LABS: INR-International Normal Ratio 2.5; Prothrombin Time 26.5 SEC (12.0-14.7)
== END 2019-12-03 11:54 | disposition home or self-care (01) ==
LOC: MADLABBHPM 11:53
PROVIDERS: ATTEND Family Medicine
DX: Z51.81 Encounter for therapeutic drug level monitoring (principal); I48.91 Unspecified atrial fibrillation; Z79.01 Long term (current) use of anticoagulants
CPT/HCPCS: 36415; 85610

== ENCOUNTER 2019-12-31 12:21 | Outpatient (CLI) | payer MEDICARE ==
[2019-12-31 12:47] LABS: INR-International Normal Ratio 2.3
== END 2019-12-31 12:22 | disposition home or self-care (01) ==
LOC: MADLABBHPM 12:21
PROVIDERS: ATTEND Family Medicine
DX: Z51.81 Encounter for therapeutic drug level monitoring (principal); I48.91 Unspecified atrial fibrillation; Z79.01 Long term (current) use of anticoagulants
CPT/HCPCS: 85610

== ENCOUNTER 2020-02-03 11:46 | Outpatient (CLI) | payer MEDICARE ==
[2020-02-03 12:11] LABS: INR-International Normal Ratio 2.4; Prothrombin Time 26.2 SEC (12.0-14.7)
== END 2020-02-03 11:47 | disposition home or self-care (01) ==
LOC: MADLABBHPM 11:46
PROVIDERS: ATTEND Family Medicine
DX: Z51.81 Encounter for therapeutic drug level monitoring (principal); I48.91 Unspecified atrial fibrillation; Z79.01 Long term (current) use of anticoagulants
CPT/HCPCS: 36415; 85610

== ENCOUNTER 2020-02-27 11:02 | Outpatient (CLI) | payer MEDICARE ==
[2020-02-27 11:36] LABS: INR-International Normal Ratio 1.8; Prothrombin Time 21.1 SEC (12.0-14.7)
== END 2020-02-27 11:03 | disposition home or self-care (01) ==
LOC: MADLABBHPM 11:02
PROVIDERS: ATTEND Family Medicine
DX: Z51.81 Encounter for therapeutic drug level monitoring (principal); I48.91 Unspecified atrial fibrillation; Z79.01 Long term (current) use of anticoagulants
CPT/HCPCS: 36415; 85610

== ENCOUNTER 2020-05-11 10:14 | Outpatient (CLI) | payer MEDICARE ==
[2020-05-11 10:53] LABS: INR-International Normal Ratio 3.7; Prothrombin Time 36.1 sec (12.0-14.7)
== END 2020-05-11 10:15 | disposition home or self-care (01) ==
LOC: MADLAB 10:14
PROVIDERS: ATTEND Family Medicine
DX: Z51.81 Encounter for therapeutic drug level monitoring (principal); I48.91 Unspecified atrial fibrillation; Z79.01 Long term (current) use of anticoagulants
CPT/HCPCS: 36415; 85610

== ENCOUNTER 2020-05-25 09:34 | Outpatient (CLI) | payer MEDICARE ==
[2020-05-25 10:03] LABS: INR-International Normal Ratio 2.8; Prothrombin Time 29.2 sec (12.0-14.7)
--- NOTE | 2020-05-25 11:11 | RAD ---
2 VIEWS CHEST: Date: 05/25/2020 PROVIDED CLINICAL HISTORY: Palpitations. FINDINGS: Comparison with 02/07/2016. Cardiac and mediastinal silhouette is unchanged in appearance. Left subclavian cardiac pacing device is redemonstrated in similar position. No focal consolidation, pleural fluid, or pneumothorax apparen t. IMPRESSION: No evidence for an acute cardiopulmonary process. POS: [facility]
== END 2020-05-25 09:35 | disposition home or self-care (01) ==
LOC: MADRAD 09:34
PROVIDERS: ATTEND Internal Medicine Cardiovascular Disease
DX: Z51.81 Encounter for therapeutic drug level monitoring (principal); I34.0 Nonrheumatic mitral (valve) insufficiency; R00.2 Palpitations; I48.0 Paroxysmal atrial fibrillation; I48.3 Typical atrial flutter; I48.91 Unspecified atrial fibrillation; Z79.01 Long term (current) use of anticoagulants
CPT/HCPCS: 36415; 71046; 84443; 85610

== ENCOUNTER 2020-06-15 12:33 | Outpatient (CLI) | payer MEDICARE ==
[2020-06-15 13:02] LABS: INR-International Normal Ratio 3.6; Prothrombin Time 35.3 sec (12.0-14.7)
== END 2020-06-15 12:34 | disposition home or self-care (01) ==
LOC: MADLABSP 12:33
PROVIDERS: ATTEND Family Medicine
DX: I48.91 Unspecified atrial fibrillation (principal)
CPT/HCPCS: 36415; 85610

== ENCOUNTER 2020-06-29 11:09 | Outpatient (CLI) | payer MEDICARE ==
[2020-06-29 11:32] LABS: INR-International Normal Ratio 2.1; Prothrombin Time 23.6 sec (12.0-14.7)
== END 2020-06-29 11:10 | disposition home or self-care (01) ==
LOC: MADLAB 11:09
PROVIDERS: ATTEND Family Medicine
DX: I48.91 Unspecified atrial fibrillation (principal)
CPT/HCPCS: 36415; 85610

== ENCOUNTER 2020-07-30 11:37 | Outpatient (CLI) | payer MEDICARE ==
[2020-07-30 13:02] LABS: INR-International Normal Ratio 1.7; Prothrombin Time 20.2 sec (12.0-14.7)
== END 2020-07-30 11:38 | disposition home or self-care (01) ==
LOC: MADLAB 11:37
PROVIDERS: ATTEND Family Medicine
DX: I48.91 Unspecified atrial fibrillation (principal)
CPT/HCPCS: 85610

== ENCOUNTER 2020-08-03 21:48 | Emergency (ER) | payer MEDICARE ==
[2020-08-03] MEDS ORDERED: Acetaminophen 500 MG TAB ONE (22:32)
--- NOTE | 2020-08-03 22:32 | RAD ---
Radiograph right shoulder 3 views: 08/03/2020 HISTORY: 85-year-old female with acute traumatic right shoulder pain FINDINGS: Comminuted predominantly oblique fracture of surgical neck of humerus, with angulation of fracture ap ex, and at least mild displacement. No dislocation. IMPRESSION: Acute, traumatic, displaced fracture of proximal metaphysis of right humerus.
== END 2020-08-03 22:40 | disposition home or self-care (01) ==
LOC: MADERS 21:48
DX: S42.201A Unspecified fracture of upper end of right humerus, initial encounter for closed fracture (principal); I34.1 Nonrheumatic mitral (valve) prolapse; I25.10 Atherosclerotic heart disease of native coronary artery without angina pectoris; E03.9 Hypothyroidism, unspecified; E78.5 Hyperlipidemia, unspecified; E78.1 Pure hyperglyceridemia; G62.9 Polyneuropathy, unspecified; Z79.899 Other long term (current) drug therapy; Z79.82 Long term (current) use of aspirin; W06.XXXA Fall from bed, initial encounter
CPT/HCPCS: 23600

== ENCOUNTER 2020-08-10 13:37 | Inpatient (IN) | payer MEDICARE ==
[2020-08-10] MEDS ORDERED: Senokot S 8.6-50 MG TAB PO PRN (17:58)
[2020-08-10] MEDS ORDERED: Warfarin Sodium 5 MG TAB PO SCH (18:30)
[2020-08-10] MEDS: Gabapentin 300 MG CAP PO SCH (21:14)
[2020-08-10] MEDS: Lorazepam 1 MG TAB PO SCH (21:15)
[2020-08-11 05:53] LABS: #Basophils 0.1 thou/uL (0.0-0.2); #Eosinphils 0.1 thou/uL (0.0-0.7); #Lymphocytes 1.4 thou/uL (1.20-3.40); #Monocytes 0.6 thou/uL (0.11-0.59); #Neutrophils 3.9 thou/uL (1.40-6.50); %Basophils 1.1 % (0.0-1.0); %Eosinophils 2.1 % (0.0-10.0); %Lymphocytes 22.6 % (21.0-51.0); %Monocytes 10.1 % (0.0-10.0); %Neutrophils 64.1 % (42.0-75.0); Mean Corpuscular HGB CONC 32.9 g/dL (32.0-36.0); Mean Corpuscular Volume 94.2 fL (78.0-98.0); Mean Platelet Volume 6.4 fL (7.4-10.4); Platelet Count 245 thou/uL (130-400); RBC Distribution Width 14.9 % (11.5-14.5); Red Blood Cell (RBC) Count 3.55 mill/uL (4.20-5.40); White Blood Cell (WBC) Count 6.1 thou/uL (4.8-10.8)
[2020-08-11 06:09] LABS: ALT (SGPT) 10 U/L (8-55); AST (SGOT) 19 U/L (5-34); Albumin 2.7 g/dL (3.4-4.8); Alkaline Phosphatase 65 U/L (40-110); Anion Gap 11 mmol/L (10-20); BUN (Urea Nitrogen) 9 mg/dL (9.8-20.1); Bilirubin, Total 0.7 mg/dL (0.2-1.2); Calc. Creatinine Clearance 51 mL/min (70-130); Calcium 7.7 mg/dL (7.8-10.44); Carbon Dioxide 27 mmol/L (23-31); Chloride 106 mmol/L (98-107); Estimated GFR-MDRD 82; Globulin 2.3 g/dL (2.4-3.5); Glucose 74 mg/dL (83-110); Potassium 3.4 mmol/L (3.5-5.1); Sodium 141 mmol/L (136-145)
--- NOTE | 2020-08-11 07:59 | HP ---
CHIEF COMPLAINT: Weakness. HISTORY OF PRESENT ILLNESS: The patient is an 85-year-old white female, who lives at home with her son. She is independent with her ADLs. She has a history of paroxysmal atrial fibrillation for which she is on Coumadin. 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 In the past, she has had difficulties with orthostatic hypotension. The patient was hospitalized at [facility] from 08/06 to 08/10 for syncopal episode that was thought to probably be from orthostatic hypotension. She sustained a minimally displaced fracture of the right humeral neck that was treated with a sling. She underwent CT scan of the brain that showed no intraparenchymal hemorrhage or hematoma. There was no acute intracranial process identified. While hospitalized, she underwent an echocardiogram that showed an ejection fraction of 50% to 55%. Pacemaker wires present. Mild enlargement of the left atrium, severe mitral regurgitation and [id number] tricuspid regurgitation. The patient's syncopal spell was thought to be secondary to orthostatic hypotension. She was relatively hypotensive on admission and appeared a little dehydrated. She did better with IV hydration. She has had no subsequent syncopal episode. While hospitalized, she did develop an acute metabolic encephalopathy. Her repeat CT scan showed no acute changes and the encephalopathy was felt to be secondary from withdrawal from her lorazepam. She takes a milligram twice a day at home that she uses for anxiety and also to help with her tremors. She had not had this ordered when she was admitted. This was restarted and initially was given IV since she was not able to take it by mouth. She over the next several day showed continual gradual improvement, where she was getting back to her mental status baseline, although still remains just a little bit confused. She was left on her anticoagulants and was found to remain in a sinus rhythm. Humeral fracture was managed with a sling. The patient did develop urinary retention for which a Cha catheter was placed on 08/08. It was recommended that she keep this in at least for a week. Her UA was normal. The patient's metabolic encephalopathy continued to improve. Again, the etiology was felt to be twofold, one was she had received some morphine that was stopped and also she had not received her lorazepam while hospitalized until it was noted that she was encephalopathic. The patient did improve but was still extremely weak and consequently, she was referred to [facility] for continued physical therapy. She at the time of discharge was requiring assistance with all of her ADLs, had an indwelling Cha catheter and right arm in a sling. PAST MEDICAL HISTORY: Hospitalized at [facility] from 08/06 to 08/10/2020 for syncope secondary to probable orthostatic hypotension complicated by minimally displaced fracture of the right humeral neck and also hospital stay complicated by urinary retention, paroxysmal atrial fibrillation for which she is on anticoagulant and her rate has been well controlled and she has been recently in a sinus rhythm. She has a pacemaker for sick sinus syndrome. 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 She has had colonoscopy with removal of polyps, last in 2009. She has history of diverticulosis of the colon, hypothyroidism, and some anxiety disorder and generalized weakness. The patient has peripheral neuropathy. PRESENT MEDICATIONS: 1. MiraLAX 17 g in 8 ounces water daily. 2. Calcium with D3 600/400 two daily. 3. Gabapentin 300 mg q.i.d. 4. Digoxin 0.125 mg daily. 5. Levothyroxine 112 mcg daily. 6. Melatonin 2.5 mg at bedtime. 7. Lorazepam 1 mg b.i.d. 8. Warfarin 2.5 mg 2 tablets once a day. 9. Senokot-S two b.i.d. p.r.n. 10. Propranolol 60 mg extended release one daily. 11. Aspirin 81 mg daily. 12. Pantoprazole 20 mg b.i.d. ALLERGIES: AMOXICILLIN, AUGMENTIN, SULFA DRUGS, CAFFEINE, CHOCOLATE, TORADOL, PRIMIDONE CAUSES HALLUCINATION, PROPAFENONE, AND ZETIA. REVIEW OF SYSTEMS: CONSTITUTIONAL: The patient says she is feeling better. She does not know if she has gained or lost any weight. Does not know if she has had any fever. HEAD AND NECK: The patient denies any problem with any headaches. EARS, NOSE, AND THROAT: No complaints. PULMONARY: No shortness of breath. CARDIOVASCULAR: No chest pain. No palpitations. GI: No nausea or vomiting. No change in bowel habits. : The patient has indwelling Cha catheter due to retention. It was placed while in the hospital, admission from 08/06. NEUROPSYCHIATRIC: The patient denies any headache. The patient denies any visual change. The patient denies any weakness other than in the right arm due to the fracture. The patient has not had any problem with any depression. Has had some trouble with anxiety. DERMATOLOGIC: No complaints. ADLs; ordinarily prior to this admission, patient was independent of her ADLs. She lives with her son. HABITS: Alcohol, none. Tobacco, none. SOCIAL HISTORY: The patient is a , who lives with her son. CODE STATUS: Full code. PHYSICAL EXAMINATION: GENERAL: Shows a very pleasant 85-year-old white female, who is sitting up in her bed. She is alert and talkative. Her height is 67 inches. Her weight is 115, which is stable. Last weight in my office in November of this year was the same. VITAL SIGNS: Shows a temperature of 98.8, pulse 79, respirations 24, O2 saturation 96% on room air, and blood pressure 130/63. HEENT: Head, normocephalic and atraumatic. Eyes, pupils are equal, round, and reactive. Sclerae nonicteric. Conjunctivae normal. Ears, TMs are clear. Nose, normal. Mouth and throat, normal. NECK: Carotids are equal and strong. No bruits. Thyroid not enlarged. LUNGS: Clear. HEART: Regular rate. No murmurs. Chest wall, there is no bruising. 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 Her shoulders, the patient has some bruising and swelling of the right humeral head. The right arm is in a sling. She seems very comfortable and will move the shoulder with no pain. ABDOMEN: Soft with no organomegaly. No areas of tenderness. EXTREMITIES: No edema. The right upper shoulder is bruised and a little swelled over the humeral head and right arm is in a sling. NEUROLOGIC: The patient is alert, recognizes me, knows that she is in the hospital, could not quite remember where she is and does not really remember the circumstances of why she is in the hospital. She was really not oriented to time. She has good strength in her lower extremities. Good strength in the upper extremities, but there is some decrease in use of that right arm due to the humeral fracture. IMPRESSION: 1. Generalized weakness. a. Secondary to recent hospitalization for syncope and marked deconditioning. b. Some pre-existing weakness prior to hospitalization that has been aggravated with the hospital stay. c. Presently requiring assistance with all of her ADLs. d. Complicated by gait abnormality. 2. Hospitalized at [facility] from 08/06 to 08/10 for syncope secondary to probable orthostatic hypotension complicated by right humeral fracture and urinary retention requiring indwelling Cha catheter. 3. History of orthostatic hypotension. a. Hospitalized recently for syncopal episode. b. Complicated by probable mild dehydration. c. Improved. No recurrence since the episode on 08/06 as of 08/10. 4. Paroxysmal atrial fibrillation. a. Presently in sinus rhythm. b. Rate control. c. On chronic anticoagulation with Coumadin with therapeutic INR. 5. Acute metabolic encephalopathy. a. Improving. b. Secondary to the effect of morphine and from her withdrawal from lorazepam. Improved since the morphine stopped and lorazepam restarted. 6. Closed minimally displaced fracture of the right humeral neck. a. Secondary to a syncopal spell and fall on 08/06. b. Managed with sling. 7. Tremors. a. Controlled with propranolol and lorazepam. 8. Anxiety disorder. 9. Urinary retention. a. Catheter placed on 08/08 and due to stay in for 7 days, that is until 08/15. 10. Hypothyroidism. 11. Peripheral neuropathy of the lower extremities. 12. Gastroesophageal reflux disease. PLAN: The patient has been admitted to [facility] for continued physical therapy and occupational therapy in an effort to improve her functional ability. She was independent of her ADLs prior to her hospitalization at [facility] on 08/06/2020. The patient is at high risk for future falls due to her history of orthostatic hypotension, now the right arm in a sling, and due to some of her medication. Her encephalopathy is improving, but not yet quite to her baseline. She was tested with COVID-19 PCR by nasal swab on 08/04/2020 and this was not detected. We will continue her routine medicines. We will continue the catheter until 08/15. See orders. Job ID: [id number] [facility]
[2020-08-11] MEDS: Levothyroxine Sodium 112 MCG TAB PO SCH (09:21)
[2020-08-11] MEDS: Aspirin 81 mg Enteric Coated Tablet PO SCH (09:21)
[2020-08-11] MEDS: Digoxin 0.125 MG TAB PO SCH (09:21)
[2020-08-11] MEDS: Calcium Carbonate 600 MG + Vit D TAB PO SCH (09:21)
[2020-08-11] MEDS: Gabapentin 300 MG CAP PO SCH ×3 (09:22→21:03)
[2020-08-11] MEDS: Propranolol HCl LA 60 MG CAP PO SCH (09:22)
[2020-08-11] MEDS: Lorazepam 1 MG TAB PO SCH ×2 (09:22→21:03)
[2020-08-11] MEDS: Polyethylene Glycol 3350 17 GM Packet PO SCH (09:22)
[2020-08-11 11:41] LABS: INR-International Normal Ratio 1.3; Prothrombin Time 15.9 sec (12.0-14.7)
[2020-08-11] MEDS: Warfarin Sodium 5 MG TAB PO SCH (17:09)
[2020-08-11] MEDS ORDERED: Artificial Tear Sol 15 ML BOT EA EYE PRN (17:50)
[2020-08-12] MEDS: Levothyroxine Sodium 112 MCG TAB PO SCH (05:22)
[2020-08-12 05:35] LABS: INR-International Normal Ratio 1.5; Prothrombin Time 17.8 sec (12.0-14.7)
[2020-08-12 05:38] LABS: Anion Gap 11 mmol/L (10-20); BUN (Urea Nitrogen) 12 mg/dL (9.8-20.1); Calc. Creatinine Clearance 46 mL/min (70-130); Calcium 7.9 mg/dL (7.8-10.44); Carbon Dioxide 29 mmol/L (23-31); Chloride 104 mmol/L (98-107); Estimated GFR-MDRD 73; Glucose 75 mg/dL (83-110); Potassium 3.3 mmol/L (3.5-5.1); Sodium 141 mmol/L (136-145)
--- NOTE | 2020-08-12 06:33 | PRG ---
DATE OF SERVICE: 08/11/2020 SUBJECTIVE: The patient is sitting up in a geriatric chair in her room. She was alert, talkative. She recognized me and knew she was in [place]. She said she feels better, but having some soreness in the right shoulder. OBJECTIVE: GENERAL: The patient looks better today. She is alert and talkative. VITAL SIGNS: Her temperature is 98.3, pulse 74, respirations 18, O2 saturation 96%, blood pressure supine 108/63, sitting 113/64, and standing 102/66. LUNGS: Clear. HEART: Regular rate. LABORATORY DATA: Her H and H are 11 and 33.4, white cell count 6100 with 64% segs, 23% lymphocytes, and platelet count of 245,000. Her PT is 59. INR 1.3. Sodium 141, potassium 3.4, BUN 9, creatinine 0.68. ASSESSMENT: 1. Generalized weakness. a. Secondary to recent hospitalization for syncope with marked deconditioning. b. Some pre-existing weakness prior to hospitalization that has been aggravated by the recent hospital stay. c. Presently requiring assistance with all of her ADLs. d. Complicated by gait abnormality and falls. 2. Hospitalized at [facility] from 08/06 to 08/10 for syncope secondary to probable orthostatic hypotension complicated by a right humeral neck fracture and urinary retention, requiring indwelling Cha catheter. 3. History of orthostatic hypotension. a. Hospitalized recently for syncopal episode. b. Complicated by probable mild dehydration. c. Improved. No recurrence since the episode on 08/06 as of 08/11. 4. Paroxysmal atrial fibrillation. a. Presently in sinus rhythm. b. Rate control. c. On chronic anticoagulation with Coumadin. 5. Acute metabolic encephalopathy. a. Secondary to the effect of morphine and probably from withdrawal of lorazepam. Improved since the morphine was stopped and lorazepam restarted. b. Improving. 6. Closed minimally displaced fracture of the right humeral neck. a. Secondary to a syncopal spell and fall on 08/06. b. Managed with sling. 7. Tremors. a. Controlled with propranolol and lorazepam. 8. Anxiety disorder. 9. Urinary retention. Catheter placed on 08/08 and due to stay for 7 days. 10. Hypothyroidism. 11. Peripheral neuropathy of the lower extremities. 12. Gastroesophageal reflux disease. PLAN: The patient is better today. We will continue her present care. Her INR is not therapeutic. We will recheck INR in the morning. Continue PT and OT. Job ID: [id number] [facility]
[2020-08-12] MEDS ORDERED: Potassium Chloride 10 MEQ TAB PO SCH (08:45)
[2020-08-12] MEDS: Gabapentin 300 MG CAP PO SCH ×5 (09:01→22:03)
[2020-08-12] MEDS: Calcium Carbonate 600 MG + Vit D TAB PO SCH (09:01)
[2020-08-12] MEDS: Propranolol HCl LA 60 MG CAP PO SCH (09:02)
[2020-08-12] MEDS: Polyethylene Glycol 3350 17 GM Packet PO SCH (09:02)
[2020-08-12] MEDS: Lorazepam 1 MG TAB PO SCH ×3 (09:02→22:01)
[2020-08-12] MEDS: Aspirin 81 mg Enteric Coated Tablet PO SCH (09:02)
[2020-08-12] MEDS: Acetaminophen 325 MG TAB PO PRN (09:02)
[2020-08-12] MEDS: Digoxin 0.125 MG TAB PO SCH (09:02)
--- NOTE | 2020-08-12 11:13 | PRG ---
DATE OF SERVICE: 08/12/2020 SUBJECTIVE: The patient is sleeping a little later this morning. She is still in bed. She was easily awakened and had no complaint. Nurses report no new problems. OBJECTIVE: GENERAL: The patient is lying quietly in bed. She appears comfortable. VITAL SIGNS: Her temperature is 98.3, pulse 74, respirations 18, O2 saturation 96% on room air. Blood pressure lying 109/63, sitting 113/64, standing 102/66. LUNGS: Clear. HEART: Regular rate. EXTREMITIES: Right arm is in a sling. There is still bruising and swelling over the right humeral head. LABORATORY DATA: Shows sodium is 141, potassium of 3.3, BUN is 12, creatinine is 0.75, glucose is 75. PT 17.8, INR 1.5. Her yesterday's INR was 1.3. The patient has good urinary output 1500. Yesterday, the patient worked with physical therapy and was able on one occasion to walk up to 150 feet with hand-held assistance. She required moderate assistance with transfers. ASSESSMENT: 1. Generalized weakness. a. Secondary to recent hospitalization for syncope. b. Improved where she walked up to 150 feet with assistance and required moderate assistance with transfers as of 08/12. 2. Hospitalized at [facility] from 08/06 to 08/10, for syncope secondary to probable orthostatic hypotension complicated by a fall with fracture of the right humeral neck and urinary retention requiring indwelling Cha catheter. 3. History of orthostatic hypotension. a. Hospitalized recently for syncopal episode. b. Complicated by probable mild dehydration. c. Improved. No recurrence since the episode on 08/06. No orthostatic changes as of 08/12. 4. Paroxysmal atrial fibrillation. a. Presently in sinus rhythm. b. Rate controlled. c. On chronic anticoagulation with Coumadin and INR gradually increasing as of 08/12. 5. Acute metabolic encephalopathy. a. Secondary to effect of morphine that has been stopped and also from withdrawal of lorazepam that has improved since the lorazepam has been restarted and morphine stopped. b. Improving as of 08/12. 6. Closed minimally displaced fracture of the right humeral neck. a. Managed with a sling. b. Doing well as of 08/12. 7. Tremors. a. Controlled with propranolol and lorazepam. 8. Anxiety disorder, controlled. 9. Urinary retention. a. Catheter placed on 08/12 and due to remove in 7 days. 10. Hypothyroidism. 11. Peripheral neuropathy. 12. Gastroesophageal reflux disease. PLAN: Continue present care. Continue PT and Occupational Therapy. The patient's potassium had dropped to 3.3. We will place her on potassium supplementation. Recheck PT/INR tomorrow. Job ID: [id number] [facility]
[2020-08-12] MEDS: Warfarin Sodium 5 MG TAB PO SCH (17:03)
[2020-08-13] MEDS: Levothyroxine Sodium 112 MCG TAB PO SCH (05:19)
[2020-08-13 05:43] LABS: INR-International Normal Ratio 1.4; Prothrombin Time 17.5 sec (12.0-14.7)
[2020-08-13] MEDS: Potassium Chloride 10 MEQ TAB PO SCH (08:33)
[2020-08-13] MEDS: Propranolol HCl LA 60 MG CAP PO SCH (08:34)
[2020-08-13] MEDS: Digoxin 0.125 MG TAB PO SCH (08:34)
[2020-08-13] MEDS: Lorazepam 1 MG TAB PO SCH ×2 (08:34→20:14)
[2020-08-13] MEDS: Calcium Carbonate 600 MG + Vit D TAB PO SCH (08:34)
[2020-08-13] MEDS: Aspirin 81 mg Enteric Coated Tablet PO SCH (08:34)
[2020-08-13] MEDS: Gabapentin 300 MG CAP PO SCH ×3 (08:34→20:14)
[2020-08-13] MEDS: Polyethylene Glycol 3350 17 GM Packet PO SCH (08:36)
[2020-08-13] MEDS: Acetaminophen 325 MG TAB PO PRN ×3 (08:36→20:17)
--- NOTE | 2020-08-13 11:17 | PRG ---
DATE OF SERVICE: 08/13/2020 SUBJECTIVE: The patient says she does not feel real good today, but there is nothing specific. She said she did sleep good last night and she has been eating good, just she would like to have larger amounts. The patient has worked with Physical Therapy, is walking up to 150 feet, cannot use a walker with her right arm in a sling, but does well with someone standing beside her and walking with her to help her maintain her balance. OBJECTIVE: GENERAL: The patient just sat down in her chair in her room coming back from physical therapy. She is alert and appears comfortable and in no distress. She does have her sling on the right arm. There is still some swelling and bruising over the right humeral head, but this is less. VITAL SIGNS: Show a temperature of 98.1, pulse 70, respirations 18, O2 saturation 97% on room air. Blood pressure supine 117/63, sitting 113/70, standing 119/64. LUNGS: Clear. HEART: Regular rate. : Her urine in the Cha catheter is yellow. ASSESSMENT: 1. Generalized weakness. a. Secondary to recent hospitalization for syncope leaving her with deconditioning. b. Improved where she is walking up to 150 feet with assistance and requires some mild to moderate assistance with transfer. Unable to use a walker with her right arm in a sling due to the fracture of the humeral head as of 08/13. 2. Hospitalized at [facility] from 08/06 until 08/10 for syncope secondary to probable orthostatic hypotension, may have been induced by some mild dehydration. Complicated by fall with fracture of the right humeral neck and urinary retention requiring indwelling Cha catheter. 3. History of orthostatic hypotension. a. Hospitalized on 08/06/2020 for syncope. b. Recent episode may have been promoted by mild dehydration. c. Improved. No recurrence since 08/06. No orthostatic changes as of 08/13. 4. Paroxysmal atrial fib. a. Presently in sinus rhythm. b. Rate controlled. c. On chronic anticoagulation with Coumadin. 5. Acute metabolic encephalopathy. a. Secondary to the effect of two doses of morphine she had received and also from withdrawal from lorazepam that had been stopped. Lorazepam has been restarted. b. Continues to improve as of 08/13. 6. Closed minimally displaced fracture of the right humeral neck. a. Managed with a sling. b. Doing well as of 08/13. Pain well controlled. 7. Tremors. a. Controlled with propranolol and lorazepam. 8. Anxiety disorder, controlled. 9. Urinary retention. a. Catheter placed on 08/08 and due to be removed in 7 days that is on 08/15. 10. Hypothyroidism. 11. Peripheral neuropathy. 12. Gastroesophageal reflux disease. PLAN: The patient looks better. Her strength seems better. We will continue present care. Continue PT and OT. Plan on removing the catheter on 08/15. The patient's INR today was only 1.4. We will adjust her Coumadin. Job ID: [id number] [facility]TDD
[2020-08-13] MEDS: Warfarin Sodium 5 MG TAB PO SCH (16:49)
[2020-08-13] MEDS: Warfarin Sodium 1 MG TAB PO SCH (16:49)
[2020-08-13] MEDS ORDERED: Warfarin Sodium 1 MG TAB PO SCH (17:00)
[2020-08-13] MEDS: Melatonin 3 MG TAB PO PRN (20:14)
[2020-08-14 05:30] LABS: INR-International Normal Ratio 1.4; Prothrombin Time 16.7 sec (12.0-14.7)
[2020-08-14] MEDS: Levothyroxine Sodium 112 MCG TAB PO SCH (05:36)
[2020-08-14] MEDS: Lorazepam 1 MG TAB PO SCH ×2 (08:52→20:02)
[2020-08-14] MEDS: Aspirin 81 mg Enteric Coated Tablet PO SCH (08:53)
[2020-08-14] MEDS: Acetaminophen 325 MG TAB PO PRN ×2 (08:53→16:38)
[2020-08-14] MEDS: Digoxin 0.125 MG TAB PO SCH (08:53)
[2020-08-14] MEDS: Calcium Carbonate 600 MG + Vit D TAB PO SCH (08:53)
[2020-08-14] MEDS: Propranolol HCl LA 60 MG CAP PO SCH (08:53)
[2020-08-14] MEDS: Gabapentin 300 MG CAP PO SCH ×4 (08:53→20:03)
[2020-08-14] MEDS: Polyethylene Glycol 3350 17 GM Packet PO SCH (08:54)
[2020-08-14] MEDS: Potassium Chloride 10 MEQ TAB PO SCH (08:54)
[2020-08-14] MEDS: Warfarin Sodium 5 MG TAB PO SCH (16:38)
--- NOTE | 2020-08-14 18:35 | PRG ---
DATE OF SERVICE: 08/14/2020 SUBJECTIVE: The patient is sitting up with her feet elevated in her Isabel chair. She is awake. She said she just does not feel very good today and was a little sore in the right shoulder. OBJECTIVE: GENERAL: The patient is alert, appears in no distress. VITAL SIGNS: Her temperature 97.8, pulse 75, respirations 18, O2 saturation 98% on room air, blood pressure 109/62. LUNGS: Clear. HEART: Regular rate. EXTREMITIES: No edema. Right shoulder has still presence of bruising and swelling, but this is a little less. Her right arm is in a sling. LABORATORY DATA: Her INR is 1.4. ASSESSMENT: 1. Generalized weakness. a. Secondary to recent hospitalization for syncope leaving her with deconditioning. b. Improved where she is walking up to 100 feet with assistance and requires some [id number] assistance with transfer. Unable to use a walker with arm in a sling due to the fracture of the humerus. Still unsteady on her feet, requires someone to assist with her ambulation as of 08/14. 2. Hospitalized at [facility] from 08/06 to 08/10 for syncope secondary to probable orthostatic hypotension that may have been induced by some mild dehydration complicated by fall with fracture of the right humeral neck and urinary retention requiring indwelling Cha catheter. 3. History of orthostatic hypotension. a. Hospitalized on 08/06 for syncope. b. Recent episode may have been promoted by mild dehydration. c. Improved. No recurrence since 08/06. No orthostatic change as of 08/14. 4. Paroxysmal atrial fibrillation. a. Presently in sinus rhythm. b. Rate controlled. c. On chronic anticoagulation with Coumadin. 5. Acute metabolic encephalopathy, improving. 6. Closed minimally displaced fracture of the right humeral neck. a. Managed with a sling. b. Doing well as of 08/14. 7. Tremors. 8. Anxiety disorder. Controlled. 9. Urinary retention. a. Catheter placed on 08/08, due to remain for 7 days. 10. Hypothyroidism. 11. Peripheral neuropathy. 12. Gastroesophageal reflux disease. PLAN: We will continue present care. Continue PT and OT. Continue Cha catheter. Continue monitoring PT, INR. I adjusted the Coumadin upwards some yesterday. Job ID: [id number] [facility]
[2020-08-14] MEDS: Melatonin 3 MG TAB PO PRN (20:03)
[2020-08-15] MEDS: Acetaminophen 325 MG TAB PO PRN ×2 (05:23→09:11)
[2020-08-15] MEDS: Levothyroxine Sodium 112 MCG TAB PO SCH (05:23)
[2020-08-15] MEDS: Lorazepam 1 MG TAB PO SCH ×2 (09:10→20:10)
[2020-08-15] MEDS: Calcium Carbonate 600 MG + Vit D TAB PO SCH (09:10)
[2020-08-15] MEDS: Polyethylene Glycol 3350 17 GM Packet PO SCH (09:10)
[2020-08-15] MEDS: Aspirin 81 mg Enteric Coated Tablet PO SCH (09:10)
[2020-08-15] MEDS: Digoxin 0.125 MG TAB PO SCH (09:11)
[2020-08-15] MEDS: Gabapentin 300 MG CAP PO SCH ×3 (09:11→20:10)
[2020-08-15] MEDS: Potassium Chloride 10 MEQ TAB PO SCH (09:11)
[2020-08-15] MEDS: Propranolol HCl LA 60 MG CAP PO SCH (09:11)
[2020-08-15] MEDS: Warfarin Sodium 5 MG TAB PO SCH (17:11)
[2020-08-15] MEDS: Warfarin Sodium 1 MG TAB PO SCH (17:11)
[2020-08-15] MEDS: Melatonin 3 MG TAB PO PRN (20:10)
[2020-08-16 05:04] LABS: INR-International Normal Ratio 1.6; Prothrombin Time 18.8 sec (12.0-14.7)
[2020-08-16 05:28] LABS: Anion Gap 12 mmol/L (10-20); BUN (Urea Nitrogen) 19 mg/dL (9.8-20.1); Calc. Creatinine Clearance 47 mL/min (70-130); Carbon Dioxide 28 mmol/L (23-31); Chloride 100 mmol/L (98-107); Estimated GFR-MDRD 75; Glucose 77 mg/dL (83-110); Potassium 4.3 mmol/L (3.5-5.1); Sodium 136 mmol/L (136-145)
[2020-08-16] MEDS: Levothyroxine Sodium 112 MCG TAB PO SCH (05:30)
[2020-08-16 05:34] LABS: White Blood Cell (WBC) Count 5.6 thou/uL (4.8-10.8)
[2020-08-16 05:35] LABS: Hemoglobin 11.7 g/dL (12.0-16.0); Mean Corpuscular HGB CONC 31.2 g/dL (32.0-36.0); Mean Corpuscular Hemoglobin 30.3 pg (27.0-31.0); Mean Corpuscular Volume 97.1 fL (78.0-98.0); Platelet Count 321 thou/uL (130-400); RBC Distribution Width 15.4 % (11.5-14.5); Red Blood Cell (RBC) Count 3.86 mill/uL (4.20-5.40)
[2020-08-16 05:36] LABS: #Basophils 0.1 thou/uL (0.0-0.2); #Eosinphils 0.1 thou/uL (0.0-0.7); #Lymphocytes 1.5 thou/uL (1.20-3.40); #Monocytes 0.6 thou/uL (0.11-0.59); #Neutrophils 3.3 thou/uL (1.40-6.50); %Basophils 1.5 % (0.0-1.0); %Eosinophils 1.4 % (0.0-10.0); %Lymphocytes 27.5 % (21.0-51.0); %Monocytes 11.2 % (0.0-10.0); %Neutrophils 58.5 % (42.0-75.0); Mean Platelet Volume 6.1 fL (7.4-10.4)
[2020-08-16] MEDS: Lorazepam 1 MG TAB PO SCH ×2 (08:40→20:13)
[2020-08-16] MEDS: Gabapentin 300 MG CAP PO SCH ×3 (08:40→20:13)
[2020-08-16] MEDS: Aspirin 81 mg Enteric Coated Tablet PO SCH (08:40)
[2020-08-16] MEDS: Propranolol HCl LA 60 MG CAP PO SCH (08:40)
[2020-08-16] MEDS: Acetaminophen 325 MG TAB PO PRN ×3 (08:40→18:28)
[2020-08-16] MEDS: Potassium Chloride 10 MEQ TAB PO SCH (08:41)
[2020-08-16] MEDS: Calcium Carbonate 600 MG + Vit D TAB PO SCH (08:41)
[2020-08-16] MEDS: Digoxin 0.125 MG TAB PO SCH (08:41)
[2020-08-16] MEDS: Polyethylene Glycol 3350 17 GM Packet PO SCH (08:44)
--- NOTE | 2020-08-16 09:12 | PRG ---
DATE OF SERVICE: 08/16/2020 SUBJECTIVE: The patient is up this morning, eating breakfast and thought she was doing okay, had no complaint. OBJECTIVE: GENERAL: The patient is alert, appears in no distress. VITAL SIGNS: Her temperature is 97.7, pulse 69, respirations 16, O2 saturation 98% on room air. Blood pressure lying 115/67, sitting 122/76, and standing 105/53. LUNGS: Clear. HEART: Regular rate. EXTREMITIES: Right arm in a sling. Swelling and bruising over the right shoulder continues to diminish. LABORATORY DATA: H and H of 11.7 and 37.5, white cell count 5600, platelet count 321. INR is up to 1.6. Sodium 136, potassium 4.3, glucose 77, BUN is 19, creatinine 0.74. GFR is 75. ASSESSMENT: 1. Generalized weakness. a. Secondary to recent hospitalization for syncope, leaving her very deconditioned. b. Improved, where she is walking up to 100 feet with assistance and requires mild to moderate assistance with any transfers. Unable to use a walker due to arm in a sling on the right. Requires someone to walk with her due to her unsteadiness. 2. Hospitalized at [facility] from 08/06 to 08/10 for syncope secondary to probable orthostatic hypotension that was induced by some mild dehydration, complicated by a fall and fracture of the right humeral neck and urinary retention requiring indwelling Cha catheter. 3. History of orthostatic hypotension. a. Hospitalized on 08/06/2020 for syncope. b. Improved. No recurrence of the syncope. 4. Paroxysmal atrial fibrillation. a. Presently in sinus rhythm. b. Rate controlled. c. On chronic anticoagulation with Coumadin. 5. Acute metabolic encephalopathy, improving. 6. Closed, minimally displaced fracture of the right humeral neck. a. Managed with a sling, doing well on 08/16. 7. Tremors. 8. Anxiety disorder. 9. Urinary retention. a. Catheter placed on 08/08. b. Plan to remove today, 08/16. 10. Hypothyroidism. 11. Peripheral neuropathy. 12. Gastroesophageal reflux disease. PLAN: Continue PT and OT. The patient's INR is gradually rising. It is now up to 1.6. We will recheck in two days the INR and PT. Remove the Cha catheter. Job ID: [id number] [facility]
[2020-08-16] MEDS: Warfarin Sodium 5 MG TAB PO SCH (17:24)
[2020-08-16] MEDS: Melatonin 3 MG TAB PO PRN (20:14)
[2020-08-17] MEDS: Acetaminophen 325 MG TAB PO PRN ×2 (02:30→15:33)
[2020-08-17] MEDS: Levothyroxine Sodium 112 MCG TAB PO SCH (05:23)
[2020-08-17] MEDS: Potassium Chloride 10 MEQ TAB PO SCH (07:55)
[2020-08-17] MEDS: Aspirin 81 mg Enteric Coated Tablet PO SCH (07:56)
[2020-08-17] MEDS: Calcium Carbonate 600 MG + Vit D TAB PO SCH (07:56)
[2020-08-17] MEDS: Propranolol HCl LA 60 MG CAP PO SCH (07:56)
[2020-08-17] MEDS: Gabapentin 300 MG CAP PO SCH ×3 (07:57→20:27)
[2020-08-17] MEDS: Lorazepam 1 MG TAB PO SCH ×2 (07:57→20:28)
[2020-08-17] MEDS: Digoxin 0.125 MG TAB PO SCH (07:58)
--- NOTE | 2020-08-17 12:39 | PRG ---
DATE OF SERVICE: 08/17/2020 SUBJECTIVE: The patient says she feels good this morning. She slept good. Catheter was ordered to be discontinued, but was not done, that will be done this morning. Her urine in the bag is clear. OBJECTIVE: GENERAL: The patient is alert, talkative, appears comfortable. VITAL SIGNS: Her temperature is 97.8, pulse 84, respirations 16, O2 saturation 98% on room air. Blood pressure lying 122/72, sitting 115/61, standing 115/74. LUNGS: Clear. HEART: Regular rate. EXTREMITIES: Right arm in a sling. The swelling is better around the right shoulder and the bruising diminishing. ASSESSMENT: 1. Generalized weakness. a. Secondary to recent hospitalization for syncope leaving her very deconditioned. b. Improved where she is now walking further but requires assistance. Unable to use a walker due to her right arm in a sling. 2. Hospitalized at [facility] from 08/06 to 08/10 for syncope secondary to probable orthostatic hypotension that was induced by mild dehydration and complicated by fall and fracture of the right humeral neck and urinary retention requiring indwelling Cha catheter. 3. History of orthostatic hypotension. a. Stable. No significant orthostatic change as of 08/17. 4. Paroxysmal atrial fibrillation. a. Presently in sinus rhythm. b. Rate controlled. 5. Acute metabolic encephalopathy, gradually resolving. 6. Closed minimally displaced fracture of the right humeral neck. a. Secondary to a fall from syncopal episode on 08/06. b. Managed with a sling and doing well as of 08/17. 7. Tremors. 8. Anxiety disorder, controlled. 9. Urinary retention. a. Catheter placed on 08/08. b. Catheter was not removed on 08/16, but will be removed today 08/17. 10. Hypothyroidism. 11. Peripheral neuropathy. 12. Gastroesophageal reflux disease, controlled. PLAN: Remove catheter. Continue PT and OT. Job ID: [id number] [facility]
[2020-08-17] MEDS: Polyethylene Glycol 3350 17 GM Packet PO SCH (12:46)
[2020-08-17 12:51] LABS: Bilirubin Negative (Negative); Blood, Urine Moderate (Negative); Clarity Cloudy (Clear); Glucose, Urine (Dipstick) Negative (Negative); Ketone, Urine Negative (Negative); Leukocyte Large (Negative); Nitrite Positive (Negative); Protein, Urine (Dipstick) Trace mg/dL (Neg-Trace); Urobilinogen 0.2 mg/dL (Less than 2)
[2020-08-17 13:12] LABS: Bacteria/HPF 3+ HPF (None Seen); Squamous Epithelial 0-3 HPF (0-3); WBC/HPF Greater Than 50 HPF (0-3)
[2020-08-17 13:13] LABS: Urine Culture Reflex Yes Yes
[2020-08-17] MEDS: Warfarin Sodium 1 MG TAB PO SCH (17:17)
[2020-08-17] MEDS: Warfarin Sodium 5 MG TAB PO SCH (17:18)
[2020-08-17] MEDS: Melatonin 3 MG TAB PO PRN (20:26)
[2020-08-17] MEDS: Ciprofloxacin 500 MG TAB PO SCH (20:27)
[2020-08-18] MEDS: Levothyroxine Sodium 112 MCG TAB PO SCH (05:13)
[2020-08-18] MEDS: Ciprofloxacin 500 MG TAB PO SCH ×2 (05:13→20:13)
[2020-08-18 05:25] LABS: INR-International Normal Ratio 1.7; Prothrombin Time 19.6 sec (12.0-14.7)
[2020-08-18] MEDS: Acetaminophen 325 MG TAB PO PRN ×2 (07:00→12:11)
[2020-08-18] MEDS: Gabapentin 300 MG CAP PO SCH ×3 (08:40→20:13)
[2020-08-18] MEDS: Calcium Carbonate 600 MG + Vit D TAB PO SCH (08:40)
[2020-08-18] MEDS: Lorazepam 1 MG TAB PO SCH ×2 (08:40→20:12)
[2020-08-18] MEDS: Aspirin 81 mg Enteric Coated Tablet PO SCH (08:40)
[2020-08-18] MEDS: Propranolol HCl LA 60 MG CAP PO SCH (08:40)
[2020-08-18] MEDS: Potassium Chloride 10 MEQ TAB PO SCH (08:40)
[2020-08-18] MEDS: Digoxin 0.125 MG TAB PO SCH (08:40)
[2020-08-18] MEDS: Polyethylene Glycol 3350 17 GM Packet PO SCH (08:41)
[2020-08-18] MEDS: Warfarin Sodium 5 MG TAB PO SCH (16:32)
[2020-08-19] MEDS: Ciprofloxacin 500 MG TAB PO SCH ×2 (05:32→21:29)
[2020-08-19] MEDS: Levothyroxine Sodium 112 MCG TAB PO SCH (05:32)
[2020-08-19] MEDS: Calcium Carbonate 600 MG + Vit D TAB PO SCH (09:17)
[2020-08-19] MEDS: Gabapentin 300 MG CAP PO SCH ×3 (09:18→21:31)
[2020-08-19] MEDS: Propranolol HCl LA 60 MG CAP PO SCH (09:18)
[2020-08-19] MEDS: Digoxin 0.125 MG TAB PO SCH (09:18)
[2020-08-19] MEDS: Aspirin 81 mg Enteric Coated Tablet PO SCH (09:18)
[2020-08-19] MEDS: Potassium Chloride 10 MEQ TAB PO SCH (09:18)
[2020-08-19] MEDS: Lorazepam 1 MG TAB PO SCH ×2 (09:18→21:29)
[2020-08-19] MEDS: Polyethylene Glycol 3350 17 GM Packet PO SCH (09:18)
--- NOTE | 2020-08-19 10:16 | PRG ---
DATE OF SERVICE: 08/19/2020 SUBJECTIVE: The patient is not wanting to wear her sling on the right arm. She is not complaining of it hurting. She is doing better with physical therapy. OBJECTIVE: GENERAL: The patient is sitting up on a NuStep working her left arm and her legs. She is alert, talkative, but hard of hearing. She looks comfortable, in no distress. VITAL SIGNS: Temperature 98.4, pulse 81, respirations 20, O2 saturation 97% on room air, blood pressure 115/65. LUNGS: Clear. HEART: Regular rate. EXTREMITIES: Right shoulder, the bruising continues to diminish. There is still a little swelling. Extremities, no edema. LABORATORY DATA: Her INR yesterday was 1.7. ASSESSMENT: 1. Generalized weakness. a. Secondary to recent hospitalization for a syncopal spell. b. Improved where she is now walking further but requires assistance. 2. Hospitalized at [facility] from 08/06 through 08/10 for syncope secondary to probable orthostatic hypotension that was induced by mild dehydration and complicated by fall and fracture of the right humeral neck and urinary retention requiring indwelling Cha catheterization. 3. History of orthostatic hypotension. a. Stable, no significant orthostatic change as of 08/19. 4. Paroxysmal atrial fibrillation. a. Presently in regular rhythm. b. Rate controlled. 5. Acute metabolic encephalopathy, resolving. 6. Closed minimally displaced fracture of the right humeral neck. a. Secondary to a fall on 08/06. b. Managed with a sling. The patient is not wanting to wear the sling as of 08/19. 7. Tremors. 8. Anxiety disorder. 9. Urinary retention. a. Catheter placed on 08/08. b. Catheter removed on 08/17 and voiding fine as of 08/19. 10. Hypothyroidism. 11. Peripheral neuropathy. 12. Gastroesophageal reflux disease. 13. Urinary tract infection. a. Culture taken on 08/18 is growing E coli with colony count greater than 100,000. Sensitivity pending. b. Presently on Cipro, and asymptomatic. PLAN: Continue present care. We will allow her to use the sling on a p.r.n. basis. Physical Therapy will begin range of motion exercises at the wrist and elbow and can try some gentle range of motion at the shoulder. We will recheck PT and INR in the morning. Job ID: [id number] [facility]
[2020-08-19] MEDS: Acetaminophen 325 MG TAB PO PRN ×2 (11:58→21:31)
[2020-08-19] MEDS: traMADol HCl 50 MG TAB PO PRN (14:58)
[2020-08-19] MEDS: Warfarin Sodium 5 MG TAB PO SCH (17:12)
[2020-08-19] MEDS: Warfarin Sodium 1 MG TAB PO SCH (17:13)
[2020-08-19] MEDS: Melatonin 3 MG TAB PO PRN (21:31)
[2020-08-20] MEDS: traMADol HCl 50 MG TAB PO PRN (00:14)
[2020-08-20] MEDS: Levothyroxine Sodium 112 MCG TAB PO SCH (05:32)
[2020-08-20] MEDS: Ciprofloxacin 500 MG TAB PO SCH ×2 (05:33→20:12)
[2020-08-20] MEDS: Acetaminophen 325 MG TAB PO PRN ×2 (05:36→09:52)
[2020-08-20 05:41] LABS: INR-International Normal Ratio 1.7
[2020-08-20] MEDS: Lorazepam 1 MG TAB PO SCH ×2 (07:55→20:11)
[2020-08-20] MEDS: Aspirin 81 mg Enteric Coated Tablet PO SCH (07:56)
[2020-08-20] MEDS: Propranolol HCl LA 60 MG CAP PO SCH (07:56)
[2020-08-20] MEDS: Calcium Carbonate 600 MG + Vit D TAB PO SCH (07:56)
[2020-08-20] MEDS: Gabapentin 300 MG CAP PO SCH ×3 (07:57→20:12)
[2020-08-20] MEDS: Polyethylene Glycol 3350 17 GM Packet PO SCH (07:57)
[2020-08-20] MEDS: Digoxin 0.125 MG TAB PO SCH (07:57)
[2020-08-20] MEDS: Potassium Chloride 10 MEQ TAB PO SCH (07:57)
--- NOTE | 2020-08-20 11:58 | PRG ---
DATE OF SERVICE: 08/20/2020 SUBJECTIVE: The patient said she is doing good this morning. She is in Physical Therapy and she is working on the [employer], working her legs and her left arm. Earlier, she was complaining of pain. She was given tramadol and has an ice pack on the right shoulder and this seems to be helping her. Right now, she says she is comfortable. OBJECTIVE: GENERAL: The patient is alert, appears comfortable. She is hard of hearing. VITAL SIGNS: Show a temperature of 97.5, pulse 87, respirations are 15, O2 saturation 97% on room air, and blood pressure 108/67. MUSCULOSKELETAL: Right shoulder has an ice pack on the shoulder. There is still swelling in the shoulder. The bruising continues to diminish. LUNGS: Clear. HEART: Regular rate. EXTREMITIES: Have no edema. LABORATORY DATA: Her INR today was 1.7, which it was yesterday. Her urine culture is growing E coli, again sensitivity still pending. ASSESSMENT: 1. Generalized weakness. a. Secondary to recent hospitalization for a syncopal spell. b. Improved, where she is now walking further and requires a little mild contact support. Still requiring help with transfers. 2. Hospitalized at [facility] from 08/06 until 08/10 for syncope secondary to probable orthostatic hypotension that was induced by mild dehydration and complicated by fall and fracture of the right humeral neck and urinary retention, requiring indwelling Cha catheter. 3. History of orthostatic hypotension. a. Stable. No significant orthostatic change as of 08/20. 4. Paroxysmal atrial fibrillation. a. Presently in regular rhythm. b. Rate controlled. c. INR not quite therapeutic at 1.7 as of 08/20. 5. Acute metabolic encephalopathy, resolving. 6. Closed minimally displaced fracture of the right humeral neck. a. Secondary to a fall on 08/06. b. Managed with a sling. Now is beginning some range of motion exercises wrist and elbow and minimal at the shoulder as of 08/20. 7. Tremors. 8. Anxiety disorder, controlled. 9. Urinary retention. a. Catheter placed on 08/08. b. Catheter removed on 08/17 and the patient voiding fine as of 08/20/2010. 10. Hypothyroidism. 11. Peripheral neuropathy. 12. Gastroesophageal reflux disease. 13. Urinary tract infection. a. Culture from 09/23, growing Escherichia coli, colony count greater than 100,000, sensitivity pending. b. Presently on Cipro and remains asymptomatic as of 08/20. PLAN: Continue PT and OT. The patient is gradually making further progress. We will increase the Coumadin. She is presently on 5 mg daily and 1 mg every other day. We will increase her to 6 mg daily. Job ID: [id number] [facility]
[2020-08-20] MEDS: Warfarin Sodium 1 MG TAB PO SCH (17:17)
[2020-08-20] MEDS: Warfarin Sodium 5 MG TAB PO SCH (17:18)
[2020-08-21] MEDS: traMADol HCl 50 MG TAB PO PRN ×2 (04:42→16:59)
[2020-08-21] MEDS: Ciprofloxacin 500 MG TAB PO SCH ×2 (05:04→20:24)
[2020-08-21] MEDS: Levothyroxine Sodium 112 MCG TAB PO SCH (05:04)
[2020-08-21 05:32] LABS: INR-International Normal Ratio 1.7; Prothrombin Time 19.9 sec (12.0-14.7)
[2020-08-21] MEDS: Propranolol HCl LA 60 MG CAP PO SCH (08:12)
[2020-08-21] MEDS: Polyethylene Glycol 3350 17 GM Packet PO SCH (08:12)
[2020-08-21] MEDS: Aspirin 81 mg Enteric Coated Tablet PO SCH (08:12)
[2020-08-21] MEDS: Calcium Carbonate 600 MG + Vit D TAB PO SCH (08:12)
[2020-08-21] MEDS: Lorazepam 1 MG TAB PO SCH ×2 (08:12→20:24)
[2020-08-21] MEDS: Gabapentin 300 MG CAP PO SCH ×3 (08:13→20:24)
[2020-08-21] MEDS: Digoxin 0.125 MG TAB PO SCH (08:13)
[2020-08-21] MEDS: Potassium Chloride 10 MEQ TAB PO SCH (08:13)
[2020-08-21] MEDS: Warfarin Sodium 1 MG TAB PO SCH (17:00)
[2020-08-21] MEDS: Warfarin Sodium 5 MG TAB PO SCH (17:00)
[2020-08-22] MEDS: Levothyroxine Sodium 112 MCG TAB PO SCH (05:07)
[2020-08-22] MEDS: Ciprofloxacin 500 MG TAB PO SCH ×2 (05:07→20:52)
[2020-08-22] MEDS: traMADol HCl 50 MG TAB PO PRN ×2 (05:07→16:55)
[2020-08-22 05:33] LABS: INR-International Normal Ratio 1.7
[2020-08-22] MEDS: Calcium Carbonate 600 MG + Vit D TAB PO SCH (08:02)
[2020-08-22] MEDS: Propranolol HCl LA 60 MG CAP PO SCH (08:02)
[2020-08-22] MEDS: Lorazepam 1 MG TAB PO SCH ×2 (08:02→20:51)
[2020-08-22] MEDS: Acetaminophen 325 MG TAB PO PRN ×3 (08:02→23:28)
[2020-08-22] MEDS: Potassium Chloride 10 MEQ TAB PO SCH (08:02)
[2020-08-22] MEDS: Digoxin 0.125 MG TAB PO SCH (08:02)
[2020-08-22] MEDS: Gabapentin 300 MG CAP PO SCH ×3 (08:02→20:51)
[2020-08-22] MEDS: Aspirin 81 mg Enteric Coated Tablet PO SCH (08:02)
[2020-08-22] MEDS: Polyethylene Glycol 3350 17 GM Packet PO SCH (08:03)
[2020-08-22] MEDS: Warfarin Sodium 1 MG TAB PO SCH (16:55)
[2020-08-22] MEDS: Warfarin Sodium 5 MG TAB PO SCH (16:55)
[2020-08-22] MEDS: Melatonin 3 MG TAB PO PRN (23:28)
[2020-08-23] MEDS: traMADol HCl 50 MG TAB PO PRN (04:55)
[2020-08-23] MEDS: Ciprofloxacin 500 MG TAB PO SCH ×2 (05:00→20:13)
[2020-08-23] MEDS: Levothyroxine Sodium 112 MCG TAB PO SCH (05:00)
[2020-08-23 05:26] LABS: INR-International Normal Ratio 1.8; Prothrombin Time 20.7 sec (12.0-14.7)
[2020-08-23] MEDS: Aspirin 81 mg Enteric Coated Tablet PO SCH (08:16)
[2020-08-23] MEDS: Calcium Carbonate 600 MG + Vit D TAB PO SCH (08:16)
[2020-08-23] MEDS: Propranolol HCl LA 60 MG CAP PO SCH (08:16)
[2020-08-23] MEDS: Potassium Chloride 10 MEQ TAB PO SCH (08:17)
[2020-08-23] MEDS: Digoxin 0.125 MG TAB PO SCH (08:17)
[2020-08-23] MEDS: Gabapentin 300 MG CAP PO SCH ×3 (08:17→20:13)
[2020-08-23] MEDS: Acetaminophen 325 MG TAB PO PRN (08:17)
[2020-08-23] MEDS: Lorazepam 1 MG TAB PO SCH ×2 (08:17→20:13)
[2020-08-23] MEDS: Polyethylene Glycol 3350 17 GM Packet PO SCH (08:18)
--- NOTE | 2020-08-23 11:37 | PRG ---
DATE OF SERVICE: 08/23/2020 SUBJECTIVE: The patient says she is doing alright this morning. She slept good. She is presently in physical therapy and starting some little pendulum motion in the right shoulder, which she should be tolerating very well. OBJECTIVE: VITAL SIGNS: Show temperature 97.3, pulse 77, respirations 16, O2 saturations 95% on room air, and blood pressure 111/63. LUNGS: Clear. HEART: Regular rate. LABORATORY DATA: INR is 1.8. ASSESSMENT: 1. Generalized weakness: a. Secondary to recent hospitalization. b. Improved, where she is now walking further with a little contact guard and support. Still requiring some help with transfers as of 08/23. 2. Hospitalized at [facility] from 08/06 until 08/10 for syncope secondary to probable orthostatic hypotension that was induced by mild dehydration and complicated by fall and fracture of the right humeral neck and urinary retention requiring indwelling Cha catheter. 3. History of orthostatic hypotension. a. Stable. No significant orthostatic changes as of 08/23. 4. Paroxysmal atrial fibrillation. a. Presently in regular rhythm. b. Rate controlled. INR is approaching therapeutic at 1.8 as of 08/23. 5. Acute metabolic encephalopathy, resolving. 6. Closed minimally displaced fracture of the right humeral neck. a. Secondary to a fall on 08/06. b. Improved as of 08/23. 7. Tremors. 8. Anxiety disorder, controlled. 9. Urinary retention. a. Catheter placed on 08/08. b. Catheter removed on 08/17. The patient continues to void with no trouble as of 08/23. 10. Hypothyroidism. 11. Peripheral neuropathy. 12. Gastroesophageal reflux disease, controlled. 13. Urinary tract infection. a. Culture from 08/18 growing Escherichia coli, colony count greater than 100,000, organisms sensitive to the Cipro. b. Presently asymptomatic as of 08/23. PLAN: Continue PT and OT. Job ID: [id number] [facility]
[2020-08-23] MEDS: Warfarin Sodium 1 MG TAB PO SCH (17:01)
[2020-08-23] MEDS: Warfarin Sodium 5 MG TAB PO SCH (17:01)
[2020-08-24 05:32] LABS: Prothrombin Time 22.5 sec (12.0-14.7)
[2020-08-24] MEDS: Ciprofloxacin 500 MG TAB PO SCH ×2 (05:34→20:15)
[2020-08-24] MEDS: Levothyroxine Sodium 112 MCG TAB PO SCH (05:34)
[2020-08-24] MEDS: Acetaminophen 325 MG TAB PO PRN ×2 (09:12→15:39)
[2020-08-24] MEDS: Polyethylene Glycol 3350 17 GM Packet PO SCH (09:12)
[2020-08-24] MEDS: Aspirin 81 mg Enteric Coated Tablet PO SCH (09:12)
[2020-08-24] MEDS: Calcium Carbonate 600 MG + Vit D TAB PO SCH (09:12)
[2020-08-24] MEDS: Propranolol HCl LA 60 MG CAP PO SCH (09:12)
[2020-08-24] MEDS: Potassium Chloride 10 MEQ TAB PO SCH (09:13)
[2020-08-24] MEDS: Lorazepam 1 MG TAB PO SCH ×2 (09:13→20:15)
[2020-08-24] MEDS: Gabapentin 300 MG CAP PO SCH ×3 (09:13→20:14)
[2020-08-24] MEDS: Digoxin 0.125 MG TAB PO SCH (09:13)
--- NOTE | 2020-08-24 11:30 | PRG ---
DATE OF SERVICE: 08/24/2020 SUBJECTIVE: The patient says she is feeling better today. She slept good last night. Occupational therapist said she is working very good with him with her shoulder. Her shoulder is feeling better today. She is doing little pendulum motions in the shoulder and range of motion at the elbow. She is walking up to 150 feet, sometimes 200 feet. She is now using a little handheld assist device with the left hand and just minimum assistance. She is still requiring some minimum to moderate assistance with transfers. OBJECTIVE: GENERAL: The patient is sitting in a chair in the Physical Therapy Department. She looks very comfortable. VITAL SIGNS: Her temperature is 97.7, pulse 76, respirations 16, O2 saturation 98%, and blood pressure supine 139/85, sitting 124/80, and standing 118/65. LUNGS: Clear. HEART: Regular rate. EXTREMITIES: Right shoulder, the bruising is resolving. There is still a little swelling. EXTREMITIES: No edema. ASSESSMENT: 1. Generalized weakness. a. Secondary to recent hospitalization. b. Improved, where she is now walking 150 to 200 feet, just started using a cane and with back office medical assistant. Still requires minimum to moderate assistance with transfers as of 08/24. 2. Hospitalized at [facility] from 08/06 until 08/10 for syncopal episode secondary to probable orthostatic hypotension that was induced by mild dehydration complicated by fall and fracture of the right humeral neck, and urinary retention, requiring indwelling Cha catheter. 3. History of orthostatic hypotension. a. Stable. No symptomatic recurrence. b. Mild orthostatic change in BP as of 08/24, and asymptomatic. 4. Paroxysmal atrial fibrillation. a. Presently in sinus rhythm. b. Rate control. c. INR 2.0 as of now 08/24. 5. Acute metabolic encephalopathy, resolved. 6. Closed minimally displaced fracture, right humeral neck. a. Secondary to fall on 08/06. b. Improved as of 08/24. 7. Tremors. 8. Anxiety disorder, controlled. 9. Urinary retention. a. Catheter placed on 08/08. b. Catheter removed on 08/17. The patient has had no trouble voiding since then as of 08/24. 10. Hypothyroidism. 11. Peripheral neuropathy. 12. Gastroesophageal reflux disease, controlled. 13. Urinary tract infection. a. Culture on 08/18, growing Escherichia coli, colony count greater than 100,000, organisms sensitive to Cipro. b. 7-day course of antibiotics. Presently asymptomatic as of 08/24. PLAN: Continue PT and OT. Complete the antibiotics. Continue present medications. Job ID: [id number] [facility]
[2020-08-24] MEDS: Warfarin Sodium 5 MG TAB PO SCH (17:02)
[2020-08-24] MEDS: Warfarin Sodium 1 MG TAB PO SCH (17:02)
[2020-08-25] MEDS: Levothyroxine Sodium 112 MCG TAB PO SCH (05:32)
[2020-08-25] MEDS: Digoxin 0.125 MG TAB PO SCH (08:46)
[2020-08-25] MEDS: Potassium Chloride 10 MEQ TAB PO SCH (08:47)
[2020-08-25] MEDS: Aspirin 81 mg Enteric Coated Tablet PO SCH (08:47)
[2020-08-25] MEDS: Gabapentin 300 MG CAP PO SCH ×3 (08:47→19:48)
[2020-08-25] MEDS: Propranolol HCl LA 60 MG CAP PO SCH (08:47)
[2020-08-25] MEDS: Lorazepam 1 MG TAB PO SCH ×2 (08:47→19:48)
[2020-08-25] MEDS: Calcium Carbonate 600 MG + Vit D TAB PO SCH (08:47)
[2020-08-25] MEDS: Polyethylene Glycol 3350 17 GM Packet PO SCH (08:48)
[2020-08-25] MEDS: Acetaminophen 325 MG TAB PO PRN (10:00)
[2020-08-25] MEDS: Warfarin Sodium 1 MG TAB PO SCH (17:51)
[2020-08-25] MEDS: Warfarin Sodium 5 MG TAB PO SCH (17:52)
[2020-08-26] MEDS: Levothyroxine Sodium 112 MCG TAB PO SCH (06:52)
[2020-08-26] MEDS: Lorazepam 1 MG TAB PO SCH ×2 (08:03→20:32)
[2020-08-26] MEDS: Gabapentin 300 MG CAP PO SCH ×3 (08:03→20:32)
[2020-08-26] MEDS: Potassium Chloride 10 MEQ TAB PO SCH (08:03)
[2020-08-26] MEDS: Digoxin 0.125 MG TAB PO SCH (08:03)
[2020-08-26] MEDS: Propranolol HCl LA 60 MG CAP PO SCH (08:03)
[2020-08-26] MEDS: Aspirin 81 mg Enteric Coated Tablet PO SCH (08:03)
[2020-08-26] MEDS: Calcium Carbonate 600 MG + Vit D TAB PO SCH (08:03)
[2020-08-26] MEDS: Polyethylene Glycol 3350 17 GM Packet PO SCH (08:04)
--- NOTE | 2020-08-26 11:30 | PRG ---
DATE OF SERVICE: 08/26/2020 SUBJECTIVE: The patient says she is doing better. She is walking better. She feels stronger. She is doing better with the exercises of her right arm. OBJECTIVE: GENERAL: The patient is sitting up in a chair, dressed in a blouse and slacks, looks very comfortable. VITAL SIGNS: Show a temperature of 97.6, pulse 73, respirations 20, O2 saturation 93% on room air, and blood pressure lying 132/71, sitting 131/81, standing 132/70. LUNGS: Clear. HEART: Regular rate. EXTREMITIES: Right arm is in a sling. ASSESSMENT: 1. Generalized weakness. a. Secondary to recent hospitalization. b. Improved, where she is now walking 150-200 feet with cane and standby assistance. Requires minimum to moderate assistance with transfers as of 08/26. 2. Hospitalized at [facility] from 08/06 to 08/10 for syncopal episode secondary to probable orthostatic hypotension that was triggered by mild dehydration. Complicated by fall and fracture of the right humeral neck and urinary retention, requiring indwelling Cha catheter. 3. History of orthostatic hypotension. a. Stable. b. No orthostatic changes in blood pressure today, 08/26/2020. 4. Paroxysmal atrial fibrillation. a. Presently in sinus rhythm. b. Rate controlled. 5. Acute metabolic encephalopathy, resolved. 6. Closed minimally displaced fracture of the right humeral neck. a. Secondary to a fall on 08/06. b. Improved as of 08/26. 7. Tremors, stable. 8. Anxiety disorder, controlled. 9. Urinary retention. a. Catheter placed on 08/08 and removed on 08/17. b. No problems urinating as of 08/26. 10. Hypothyroidism. 11. Peripheral neuropathy. 12. Gastroesophageal reflux disease, controlled. 13. Urinary tract infection. a. Culture grew E coli, colony count greater than 100,000, organism sensitive to Cipro. b. The patient has completed a 7-day course of the antibiotics and these have been stopped. PLAN: Continue present care. Continue PT and OT. Job ID: [id number] [facility]
[2020-08-26] MEDS: Warfarin Sodium 5 MG TAB PO SCH (17:01)
[2020-08-26] MEDS: Warfarin Sodium 1 MG TAB PO SCH (17:02)
[2020-08-27] MEDS: Levothyroxine Sodium 112 MCG TAB PO SCH (05:32)
[2020-08-27 05:55] LABS: INR-International Normal Ratio 1.9; Prothrombin Time 22.3 sec (12.0-14.7)
[2020-08-27] MEDS: Propranolol HCl LA 60 MG CAP PO SCH (07:49)
[2020-08-27] MEDS: Polyethylene Glycol 3350 17 GM Packet PO SCH (07:49)
[2020-08-27] MEDS: Lorazepam 1 MG TAB PO SCH ×2 (07:49→20:23)
[2020-08-27] MEDS: Aspirin 81 mg Enteric Coated Tablet PO SCH (07:50)
[2020-08-27] MEDS: Potassium Chloride 10 MEQ TAB PO SCH (07:50)
[2020-08-27] MEDS: Gabapentin 300 MG CAP PO SCH ×3 (07:50→20:22)
[2020-08-27] MEDS: Calcium Carbonate 600 MG + Vit D TAB PO SCH (07:50)
[2020-08-27] MEDS: Digoxin 0.125 MG TAB PO SCH (07:51)
[2020-08-27] MEDS: Acetaminophen 325 MG TAB PO PRN (07:51)
--- NOTE | 2020-08-27 13:36 | PRG ---
DATE OF SERVICE: 08/27/2020 SUBJECTIVE: The patient says she is feeling real good. Her shoulder is feeling better. She has been doing good with physical therapy. She has been walking a little further, but still needs just contact guidance. OBJECTIVE: GENERAL: The patient lying in bed. She has had breakfast and been to therapy. She is dressed, is awake and appears very comfortable. VITAL SIGNS: Temperature of 97.7, pulse 75, blood pressure lying was 127/74, sitting 129/74, standing 123/86, O2 saturation 100% on room air. LUNGS: Clear. HEART: Regular rate. EXTREMITIES: No edema. Her right shoulder, the bruising is resolved. The right shoulder is still a little bit swelled, but it is better. ASSESSMENT: 1. Generalized weakness. a. Secondary to recent hospitalization. b. Improved where she is now walking up to 200 feet at times but needs contact guidance and help with transfers, still a little unsteady as of 08/27. 2. Hospitalized at [facility] from 08/06 through 08/10 for syncopal episode secondary to probable orthostatic hypotension that was triggered by mild dehydration. a. Complicated by fall and fracture of the right humeral neck and urinary retention requiring indwelling Cha catheter. 3. History of orthostatic hypotension. a. Stable. b. No orthostatic changes in blood pressure today as of 08/27/20. 4. Paroxysmal atrial fibrillation. a. Presently in sinus rhythm. b. Rate controlled. 5. Acute metabolic encephalopathy, resolved. 6. Closed, minimally displaced fracture of the right humeral neck. a. Secondary to fall on 08/06. b. Continues to improve and pain diminishing as of 08/27. 7. Tremor, stable. 8. Anxiety disorder, controlled. 9. Urinary retention. a. Catheter placed on 08/08 and removed on 08/17. b. No problem urinating as of 08/27. 10. Hypothyroidism. 11. Peripheral neuropathy. 12. Gastroesophageal reflux disease, controlled. 13. Urinary tract infection. a. Culture grew E coli, colony count greater than 100,000, sensitive to Cipro. b. Completed a 7-day course of Cipro. Remains asymptomatic as of 08/27. PLAN: Continue present care. Continue PT and OT. The patient is making excellent progress. She is still having some trouble maintaining adequate balance. She will benefit with continued therapy and occupational therapy for at least another week. Her INR is 1.9. We will recheck this in a couple of days. If it does not go back to therapeutic range, we will adjust this up to 7 mg of Coumadin a day. Job ID: [id number] [facility]
[2020-08-27] MEDS: Warfarin Sodium 5 MG TAB PO SCH (17:26)
[2020-08-27] MEDS: Warfarin Sodium 1 MG TAB PO SCH (17:26)
[2020-08-28] MEDS: Acetaminophen 325 MG TAB PO PRN (05:31)
[2020-08-28] MEDS: Levothyroxine Sodium 112 MCG TAB PO SCH (05:32)
[2020-08-28 05:36] LABS: INR-International Normal Ratio 1.9
[2020-08-28] MEDS: Aspirin 81 mg Enteric Coated Tablet PO SCH (09:31)
[2020-08-28] MEDS: Digoxin 0.125 MG TAB PO SCH (09:33)
[2020-08-28] MEDS: Calcium Carbonate 600 MG + Vit D TAB PO SCH (09:33)
[2020-08-28] MEDS: traMADol HCl 50 MG TAB PO PRN ×2 (09:33→19:31)
[2020-08-28] MEDS: Propranolol HCl LA 60 MG CAP PO SCH (09:34)
[2020-08-28] MEDS: Potassium Chloride 10 MEQ TAB PO SCH (09:34)
[2020-08-28] MEDS: Lorazepam 1 MG TAB PO SCH ×2 (09:34→20:14)
[2020-08-28] MEDS: Gabapentin 300 MG CAP PO SCH ×3 (09:34→20:14)
[2020-08-28] MEDS: Polyethylene Glycol 3350 17 GM Packet PO SCH (09:34)
[2020-08-28] MEDS: Warfarin Sodium 5 MG TAB PO SCH (17:20)
[2020-08-28] MEDS: Warfarin Sodium 1 MG TAB PO SCH (17:20)
[2020-08-29] MEDS: traMADol HCl 50 MG TAB PO PRN (05:27)
[2020-08-29] MEDS: Levothyroxine Sodium 112 MCG TAB PO SCH (05:29)
[2020-08-29 05:39] LABS: INR-International Normal Ratio 1.7; Prothrombin Time 20.7 sec (12.0-14.7)
[2020-08-29] MEDS: Lorazepam 1 MG TAB PO SCH ×2 (09:07→20:32)
[2020-08-29] MEDS: Polyethylene Glycol 3350 17 GM Packet PO SCH (09:07)
[2020-08-29] MEDS: Calcium Carbonate 600 MG + Vit D TAB PO SCH (09:08)
[2020-08-29] MEDS: Potassium Chloride 10 MEQ TAB PO SCH (09:08)
[2020-08-29] MEDS: Aspirin 81 mg Enteric Coated Tablet PO SCH (09:08)
[2020-08-29] MEDS: Digoxin 0.125 MG TAB PO SCH (09:08)
[2020-08-29] MEDS: Propranolol HCl LA 60 MG CAP PO SCH (09:08)
[2020-08-29] MEDS: Gabapentin 300 MG CAP PO SCH ×3 (09:08→20:32)
[2020-08-29] MEDS: Warfarin Sodium 5 MG TAB PO SCH (17:06)
[2020-08-29] MEDS: Warfarin Sodium 1 MG TAB PO SCH (17:06)
[2020-08-29] MEDS: Acetaminophen 325 MG TAB PO PRN (20:36)
[2020-08-30 05:43] LABS: INR-International Normal Ratio 1.9; Prothrombin Time 21.8 sec (12.0-14.7)
[2020-08-30] MEDS: Levothyroxine Sodium 112 MCG TAB PO SCH (06:04)
[2020-08-30] MEDS: Potassium Chloride 10 MEQ TAB PO SCH (08:12)
[2020-08-30] MEDS: Polyethylene Glycol 3350 17 GM Packet PO SCH (08:12)
[2020-08-30] MEDS: Calcium Carbonate 600 MG + Vit D TAB PO SCH (08:13)
[2020-08-30] MEDS: Digoxin 0.125 MG TAB PO SCH (08:13)
[2020-08-30] MEDS: Propranolol HCl LA 60 MG CAP PO SCH (08:13)
[2020-08-30] MEDS: Lorazepam 1 MG TAB PO SCH ×2 (08:13→20:52)
[2020-08-30] MEDS: Aspirin 81 mg Enteric Coated Tablet PO SCH (08:13)
[2020-08-30] MEDS: Gabapentin 300 MG CAP PO SCH ×3 (08:15→20:53)
--- NOTE | 2020-08-30 09:46 | PRG ---
DATE OF SERVICE: 08/30/2020 SUBJECTIVE: The patient says she is feeling better. She had no complaint this morning. She is in Physical Therapy. She is working with her arms with a cycling machine. She had no complaint. OBJECTIVE: GENERAL: The patient is alert, appears comfortable, in no distress. VITAL SIGNS: Her temperature is 98.1; pulse 88; respirations 16; O2 saturation 100% on room air; blood pressure, supine 113/70, sitting 120/63, standing 122/68. Her weight is 110. Her admission weight was 115. LUNGS: Clear. HEART: Regular rate. EXTREMITIES: No edema. Right shoulder, the bruise is gone. The swelling is slowly diminishing. LABORATORY DATA: Her INR is 1.9. ASSESSMENT: 1. Generalized weakness. a. Secondary to recent hospitalization. b. Improved, where she is now walking up to 200 feet at times, but still needs just a little contact support and minimal help with transfers as of 08/30. 2. Hospitalized at [facility] from 08/06 through 08/10 for syncopal episode secondary to probable orthostatic hypotension that was triggered by mild dehydration. a. Complicated by fall and fracture of the right humeral neck and urinary retention, requiring indwelling Cha catheter. 3. History of orthostatic hypotension. a. Stable. b. No orthostatic changes in blood pressure as of 08/30. 4. Paroxysmal atrial fibrillation. a. Presently in sinus rhythm. b. Rate controlled. c. INR 1.9 as of 08/30. 5. Acute metabolic encephalopathy, resolved. 6. Closed minimally displaced fracture of the right humeral neck. a. Secondary to fall on 08/06. b. Continues to improve as of 08/30. 7. Tremors, stable. 8. Anxiety disorder, controlled. 9. Urinary retention. a. Catheter placed on 08/08, removed on 08/17. b. Voiding with no problem as of 08/30. 10. Hypothyroidism. 11. Peripheral neuropathy. 12. Gastroesophageal reflux disease, controlled. 13. Urinary tract infection. a. Culture grew Escherichia coli, colony count greater than 100,000 sensitive to Cipro. b. Completed a 7-day course of Cipro. Remains asymptomatic as of 08/30. PLAN: Continue present care. Continue PT and OT. Job ID: [id number] [facility]
[2020-08-30] MEDS: Warfarin Sodium 1 MG TAB PO SCH (17:20)
[2020-08-30] MEDS: Warfarin Sodium 5 MG TAB PO SCH (17:20)
[2020-08-30] MEDS: Acetaminophen 325 MG TAB PO PRN (20:53)
[2020-08-31] MEDS: Levothyroxine Sodium 112 MCG TAB PO SCH (06:03)
[2020-08-31] MEDS: Calcium Carbonate 600 MG + Vit D TAB PO SCH (08:53)
[2020-08-31] MEDS: Propranolol HCl LA 60 MG CAP PO SCH (08:53)
[2020-08-31] MEDS: Gabapentin 300 MG CAP PO SCH ×3 (08:53→20:21)
[2020-08-31] MEDS: Aspirin 81 mg Enteric Coated Tablet PO SCH (08:53)
[2020-08-31] MEDS: Polyethylene Glycol 3350 17 GM Packet PO SCH (08:53)
[2020-08-31] MEDS: Potassium Chloride 10 MEQ TAB PO SCH (08:53)
[2020-08-31] MEDS: Lorazepam 1 MG TAB PO SCH ×2 (08:53→20:22)
[2020-08-31] MEDS: Digoxin 0.125 MG TAB PO SCH (08:54)
[2020-08-31 10:03] LABS: INR-International Normal Ratio 1.8; Prothrombin Time 21.1 sec (12.0-14.7)
[2020-08-31] MEDS: Warfarin Sodium 1 MG TAB PO SCH (17:08)
[2020-08-31] MEDS: Warfarin Sodium 5 MG TAB PO SCH (17:08)
[2020-08-31] MEDS: traMADol HCl 50 MG TAB PO PRN (19:17)
[2020-09-01] MEDS: Levothyroxine Sodium 112 MCG TAB PO SCH (05:14)
[2020-09-01 05:35] LABS: INR-International Normal Ratio 1.9; Prothrombin Time 21.8 sec (12.0-14.7)
[2020-09-01] MEDS: Lorazepam 1 MG TAB PO SCH ×2 (08:36→20:40)
[2020-09-01] MEDS: Aspirin 81 mg Enteric Coated Tablet PO SCH (08:37)
[2020-09-01] MEDS: Propranolol HCl LA 60 MG CAP PO SCH (08:37)
[2020-09-01] MEDS: Calcium Carbonate 600 MG + Vit D TAB PO SCH (08:37)
[2020-09-01] MEDS: Acetaminophen 325 MG TAB PO PRN (08:37)
[2020-09-01] MEDS: Polyethylene Glycol 3350 17 GM Packet PO SCH (08:37)
[2020-09-01] MEDS: Digoxin 0.125 MG TAB PO SCH (08:37)
[2020-09-01] MEDS: Gabapentin 300 MG CAP PO SCH ×3 (08:37→20:40)
[2020-09-01] MEDS: Potassium Chloride 10 MEQ TAB PO SCH (08:37)
--- NOTE | 2020-09-01 12:13 | PRG ---
DATE OF SERVICE: 09/01/2020 SUBJECTIVE: The patient says she is doing good. Shoulder is still sore, but it is improving. She is doing better with her walking, but still at times just a little out of balance, but improving. OBJECTIVE: GENERAL: The patient is sitting up in a chair. She is dressed. She is eating her breakfast, looks very comfortable and in no distress. VITAL SIGNS: Her temperature 97.9; pulse 72; respirations 18; O2 saturation 100% on room air; blood pressure lying 122/70, sitting 117/65, standing 131/76. LUNGS: Clear. HEART: Regular rate. MUSCULOSKELETAL: Right shoulder bruising resolved, edema gradually resolving. EXTREMITIES: No edema. LABORATORY DATA: Her INR is 1.9. ASSESSMENT: 1. Generalized weakness. a. Secondary to recent hospitalization. b. Improving. Now walking up to 200 feet, still requires just a little contact support and minimal help with transfers as of 09/01. 2. Hospitalized at [facility] from 08/06 to 08/10 for syncopal episode secondary to probable orthostatic hypotension that was triggered by mild dehydration. a. Complicated by a fall and fracture of the right humeral neck and urinary retention, requiring indwelling Cha catheter. 3. History of orthostatic hypotension. a. Stable. b. No orthostatic changes in pressure as of 09/01. 4. Paroxysmal atrial fibrillation. a. Presently in sinus rhythm. b. Rate control. c. INR 1.9 as of 09/01. 5. Acute metabolic encephalopathy, resolved. 6. Closed minimally displaced fracture of the right humeral neck. a. Secondary to a fall on 08/06. b. Continued to improve as of 09/01. 7. Tremors, stable. 8. Anxiety disorder, controlled. 9. Urinary retention. a. Catheter placed on 08/08, removed on 08/17. b. Voiding with no problems as of 09/01. 10. Hypothyroidism. 11. Peripheral neuropathy. 12. Gastroesophageal reflux disease. 13. Urinary tract infection, resolved. PLAN: Continue present care. Continue PT and OT. We will recheck INR in two days. The patient's INR is at 1.9. We will not try to adjust this, rather keep her on the low side of therapeutic with her potential fall risks and presently she is on an easy schedule with her Coumadin that she can follow at home. Job ID: [id number] [facility]
[2020-09-01] MEDS: Warfarin Sodium 5 MG TAB PO SCH (17:35)
[2020-09-01] MEDS: Warfarin Sodium 1 MG TAB PO SCH (17:39)
[2020-09-02] MEDS: Levothyroxine Sodium 112 MCG TAB PO SCH (06:08)
[2020-09-02] MEDS: Lorazepam 1 MG TAB PO SCH ×2 (08:06→20:45)
[2020-09-02] MEDS: Digoxin 0.125 MG TAB PO SCH (08:06)
[2020-09-02] MEDS: Gabapentin 300 MG CAP PO SCH ×3 (08:06→20:44)
[2020-09-02] MEDS: Potassium Chloride 10 MEQ TAB PO SCH (08:06)
[2020-09-02] MEDS: Aspirin 81 mg Enteric Coated Tablet PO SCH (08:06)
[2020-09-02] MEDS: traMADol HCl 50 MG TAB PO PRN ×2 (08:07→20:44)
[2020-09-02] MEDS: Calcium Carbonate 600 MG + Vit D TAB PO SCH (08:07)
[2020-09-02] MEDS: Propranolol HCl LA 60 MG CAP PO SCH (08:07)
[2020-09-02] MEDS: Polyethylene Glycol 3350 17 GM Packet PO SCH (08:08)
--- NOTE | 2020-09-02 14:14 | PRG ---
DATE OF SERVICE: 09/02/2020 SUBJECTIVE: The patient is doing very well. Therapist says she is doing better. She is walking further with no assist device, but has someone standby her just for protection. Her balance is much improved. Her transfers are improving. OBJECTIVE: GENERAL: The patient is sitting up in the chair and Physical Therapy working her arms. She is alert, talkative, appears comfortable, and in no distress. VITAL SIGNS: Shows a temperature 97.4, pulse 78, respirations 18, O2 saturation 97% on room air, blood pressure 99/55 last evening. Blood pressure this morning lying was 117/75, sitting 124/72, and standing 113/69 LUNGS: Clear. HEART: Regular rate. EXTREMITIES: Right shoulder, no bruising, swelling is all resolving. EXTREMITIES: No edema. ASSESSMENT: 1. Generalized weakness: a. Secondary to recent hospitalization. b. Improving, now walking over 200 feet with just someone walking with her for protection. Requires minimal help with transfers as of 09/02. 2. Hospitalized at [facility] from 08/06 to 08/10 for syncopal episode secondary to probable orthostatic hypotension that was triggered by mild dehydration. a. Complicated by a fall and fracture of the right humeral neck and urinary retention requiring Cha catheter. 3. History of orthostatic hypotension. a. Stable. b. No evidence of orthostatic changes as of 09/02. 4. Paroxysmal atrial fibrillation. a. Presently in sinus rhythm. 5. Acute metabolic encephalopathy, resolved. 6. Closed minimally displaced fracture of the right humeral neck. a. Secondary to a fall on 08/06. b. Continued improvement as of 09/02. 7. Tremors, stable. 8. Anxiety disorder, controlled. 9. Urinary retention. a. Required Cha catheter on 08/08, removed on 08/17. b. Continues to void with no problem as of 09/02. 10. Hypothyroidism. 11. Gastroesophageal reflux disease. 12. Peripheral neuropathy. 13. Urinary tract infection, resolved. PLAN: Continue PT/OT. Continue present medicines. The patient will benefit from further therapy. Her balance is gradually improving. She is becoming more stable on her feet. Job ID: [id number] [facility]
[2020-09-02] MEDS: Acetaminophen 325 MG TAB PO PRN (15:48)
[2020-09-02] MEDS: Warfarin Sodium 1 MG TAB PO SCH (17:13)
[2020-09-02] MEDS: Warfarin Sodium 5 MG TAB PO SCH (17:13)
[2020-09-03 05:49] LABS: INR-International Normal Ratio 1.8; Prothrombin Time 21.4 sec (12.0-14.7)
[2020-09-03] MEDS: Levothyroxine Sodium 112 MCG TAB PO SCH (05:51)
[2020-09-03] MEDS: Lorazepam 1 MG TAB PO SCH ×2 (07:52→19:56)
[2020-09-03] MEDS: Potassium Chloride 10 MEQ TAB PO SCH (07:53)
[2020-09-03] MEDS: Propranolol HCl LA 60 MG CAP PO SCH (07:53)
[2020-09-03] MEDS: Calcium Carbonate 600 MG + Vit D TAB PO SCH (07:53)
[2020-09-03] MEDS: Gabapentin 300 MG CAP PO SCH ×3 (07:53→19:56)
[2020-09-03] MEDS: Aspirin 81 mg Enteric Coated Tablet PO SCH (07:53)
[2020-09-03] MEDS: Polyethylene Glycol 3350 17 GM Packet PO SCH (07:54)
[2020-09-03] MEDS: Digoxin 0.125 MG TAB PO SCH (07:54)
--- NOTE | 2020-09-03 13:02 | PRG ---
DATE OF SERVICE: 09/03/2020 SUBJECTIVE: The patient said that she is feeling good today. She is making progress with her therapy, but hopes to stay here longer to increase her strength and stability. Her shoulder is feeling better. OBJECTIVE: GENERAL: The patient is sitting up in a chair. She is dressed. She appears comfortable, in no distress. VITAL SIGNS: Her temp is 97.3, pulse 84, respirations are 15, O2 saturation 98% on room air, blood pressure 115/80. LUNGS: Clear. HEART: Regular rate. EXTREMITIES: No edema. Right shoulder bruising is resolved. Edema is resolving. The patient is moving that right arm better. LABORATORY DATA: Her INR is 1.8. ASSESSMENT: 1. Generalized weakness. a. Secondary to recent hospitalization. b. Improving. Now walking over 200 feet with just someone walking with her for a guard. Transferring better as of 09/03. 2. Hospitalized at [facility] from 08/06 to 08/10 for syncopal episode secondary to a probable orthostatic hypotension that was triggered by mild dehydration. a. Complicated by fall and fracture of the right humeral neck and urinary retention, requiring temporary Cha catheter. 3. History of orthostatic hypotension. a. Stable. b. No evidence of orthostatic changes or repeat syncopal episode as of 09/03. 4. Paroxysmal atrial fibrillation. a. Presently in sinus rhythm. 5. Acute metabolic encephalopathy, resolved. 6. Closed minimally displaced fracture right humeral neck. a. Secondary to a fall on 08/06. b. Continued improvement as of 09/03 with increased movement, not requiring the sling as of 09/03. 7. Tremor, stable. 8. Anxiety disorder, controlled. 9. Urinary retention. a. Required Cha catheter on 08/08 that was removed on 08/17. b. Continues to void with no problem as of 09/03. 10. Hypothyroidism. 11. Gastroesophageal reflux disease. 12. Peripheral neuropathy. 13. Urinary tract infection, resolved. PLAN: We will increase the patient's warfarin to 7 mg a day. Continue PT and OT. Job ID: [id number] [facility]
[2020-09-03] MEDS: Warfarin Sodium 1 MG TAB PO SCH (16:58)
[2020-09-03] MEDS: Warfarin Sodium 5 MG TAB PO SCH (16:58)
[2020-09-03] MEDS: traMADol HCl 50 MG TAB PO PRN (23:46)
[2020-09-04] MEDS: Levothyroxine Sodium 112 MCG TAB PO SCH (05:19)
[2020-09-04] MEDS: Acetaminophen 325 MG TAB PO PRN (05:19)
[2020-09-04] MEDS: Lorazepam 1 MG TAB PO SCH ×2 (08:34→20:30)
[2020-09-04] MEDS: Aspirin 81 mg Enteric Coated Tablet PO SCH (08:34)
[2020-09-04] MEDS: Potassium Chloride 10 MEQ TAB PO SCH (08:34)
[2020-09-04] MEDS: Gabapentin 300 MG CAP PO SCH ×3 (08:34→20:30)
[2020-09-04] MEDS: Calcium Carbonate 600 MG + Vit D TAB PO SCH (08:34)
[2020-09-04] MEDS: Propranolol HCl LA 60 MG CAP PO SCH (08:34)
[2020-09-04] MEDS: Digoxin 0.125 MG TAB PO SCH (08:35)
[2020-09-04] MEDS: Polyethylene Glycol 3350 17 GM Packet PO SCH (08:37)
[2020-09-04] MEDS: Warfarin Sodium 1 MG TAB PO SCH (16:53)
[2020-09-04] MEDS: Warfarin Sodium 5 MG TAB PO SCH (16:53)
[2020-09-04] MEDS ORDERED: Warfarin Sodium 1 MG TAB PO SCH (17:00)
[2020-09-05] MEDS: Levothyroxine Sodium 112 MCG TAB PO SCH (06:10)
[2020-09-05] MEDS: Aspirin 81 mg Enteric Coated Tablet PO SCH (08:18)
[2020-09-05] MEDS: Acetaminophen 325 MG TAB PO PRN (08:18)
[2020-09-05] MEDS: Calcium Carbonate 600 MG + Vit D TAB PO SCH (08:18)
[2020-09-05] MEDS: Lorazepam 1 MG TAB PO SCH ×2 (08:18→20:41)
[2020-09-05] MEDS: Propranolol HCl LA 60 MG CAP PO SCH (08:19)
[2020-09-05] MEDS: Polyethylene Glycol 3350 17 GM Packet PO SCH (08:19)
[2020-09-05] MEDS: Digoxin 0.125 MG TAB PO SCH (08:19)
[2020-09-05] MEDS: Gabapentin 300 MG CAP PO SCH ×3 (08:19→20:41)
[2020-09-05] MEDS: Potassium Chloride 10 MEQ TAB PO SCH (08:19)
[2020-09-05] MEDS: Warfarin Sodium 1 MG TAB PO SCH (16:57)
[2020-09-05] MEDS: Warfarin Sodium 5 MG TAB PO SCH (16:58)
--- NOTE | 2020-09-06 05:43 | PRG ---
DATE OF SERVICE: 09/05/2020 SUBJECTIVE: The patient says she is doing fine. She said she is a little sore on the left posterior chest. She has had no shortness of breath. Does not think she has had any injury to that area. She has had no fever. OBJECTIVE: GENERAL: The patient is alert, appears comfortable, and in no distress. She is lying in bed. VITAL SIGNS: Show a temperature of 98.7, pulse 81, respirations 16, O2 saturation 99%, and blood pressure lying 120/68, sitting 122/78, and standing 116/73. LUNGS: Clear. HEART: Regular rate. 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 CHEST: Posteriorly appears normal. There was no tenderness on palpation. There is no rash over that area. ASSESSMENT: 1. Generalized weakness. a. Secondary to recent hospital stay. b. Improving, walking over 200 feet with just standby assistance and transferring better as of 09/05. 2. Hospitalized at [facility] from 08/06 to 08/10 for syncopal episode secondary to probable orthostatic hypotensive episode that was triggered by mild dehydration. a. Complicated by fall and fracture of the right humeral neck and urinary retention requiring a temporary Cha catheter. 3. History of orthostatic hypotension. a. Stable. b. No evidence of orthostatic changes or repeat syncopal episodes as of 09/05. 4. Paroxysmal atrial fibrillation. a. Presently in regular rate and rhythm. 5. Acute metabolic encephalopathy, resolved. 6. Closed minimally displaced fracture right humeral neck. a. Secondary to a fall on 08/06. b. Improved pain controlled. Range of motion improved as of 09/05. 7. Tremor, stable. 8. Anxiety disorder, controlled. 9. Urinary retention. a. Required a catheter and placement on 08/08 that was removed on 08/17. b. Continues to void with no problem as of 09/05. 10. Hypothyroidism. 11. Gastroesophageal reflux disease, controlled. 12. Peripheral neuropathy. 13. Urinary tract infection, resolved. PLAN: Continue present care. Continue PT and OT. Did not find a reason for the little soreness over her left posterior chest. We will observe this and just treat this for the moment symptomatically. Job ID: [id number] [facility]
[2020-09-06 05:47] LABS: Prothrombin Time 23.1 sec (12.0-14.7)
[2020-09-06] MEDS: Levothyroxine Sodium 112 MCG TAB PO SCH (05:51)
[2020-09-06] MEDS: Acetaminophen 325 MG TAB PO PRN ×2 (05:51→15:16)
[2020-09-06] MEDS: Gabapentin 300 MG CAP PO SCH ×3 (08:30→20:18)
[2020-09-06] MEDS: Lorazepam 1 MG TAB PO SCH ×2 (08:30→20:17)
[2020-09-06] MEDS: Potassium Chloride 10 MEQ TAB PO SCH (08:30)
[2020-09-06] MEDS: Propranolol HCl LA 60 MG CAP PO SCH (08:30)
[2020-09-06] MEDS: Calcium Carbonate 600 MG + Vit D TAB PO SCH (08:30)
[2020-09-06] MEDS: Aspirin 81 mg Enteric Coated Tablet PO SCH (08:30)
[2020-09-06] MEDS: Digoxin 0.125 MG TAB PO SCH (08:30)
[2020-09-06] MEDS: Polyethylene Glycol 3350 17 GM Packet PO SCH (08:31)
[2020-09-06 12:55] VITALS: BMI 17.9
--- NOTE | 2020-09-06 13:06 | PRG ---
DATE OF SERVICE: 09/06/2020 SUBJECTIVE: The patient is doing good this morning. She was a little upset because a male therapist had helped her out of the bathroom and she was offended by male helping her instead of a female. I mentioned this to the nurse and they will do their best to ensure that she always has a female to assist her. OBJECTIVE: GENERAL: The patient is alert, appears comfortable, in no distress. VITAL SIGNS: Her temperature is 97.9, pulse 78, respirations 16, O2 saturation 95% on room air, and blood pressure 101/54. LUNGS: Clear. HEART: Regular rate. Pacemaker site appears normal with no redness. LUNGS: Clear. EXTREMITIES: No edema. Right shoulder, no bruising, swelling is resolving. LABORATORY DATA: INR is 2.0. ASSESSMENT: 1. Generalized weakness. a. Secondary to recent hospital stay. b. Improving, walking over 200 feet with standby assistance and transferring better as of 09/06, unsteadiness improving. 2. Hospitalized at [facility] from 08/06 to 08/10 for syncopal episode secondary to probable orthostatic hypotensive episode that was triggered by mild dehydration. a. Complicated by a fall and fracture of the right humeral neck and urinary retention, requiring temporary Cha catheter. 3. History of orthostatic hypotension. a. Stable. b. No evidence of orthostatic change or repeat syncopal episodes as of 09/06. 4. Paroxysmal atrial fibrillation. a. Presently regular rate. 5. Acute metabolic encephalopathy, resolved. 6. Closed minimally displaced fracture, right humeral neck. a. Secondary to a fall on 08/06. b. Improved. Pain controlled. Range of motion improving as of 09/06. 7. Tremor, stable. 8. Anxiety disorder, controlled. 9. Urinary retention. a. Required catheter that was placed on 08/08 and removed on 08/17. b. Continues to void with no problem as of 09/06. 10. Hypothyroidism. 11. Gastroesophageal reflux disease, controlled. 12. Peripheral neuropathy. 13. Recent urinary tract infection, resolved. PLAN: Continue PT/OT. The patient is making continued progress. We will try to help insure that only a female aide assists her in the bathroom. Her INR was 2.0, which is therapeutic. We will recheck in two days. Job ID: [id number] [facility]
[2020-09-06] MEDS: Warfarin Sodium 1 MG TAB PO SCH (17:03)
[2020-09-06] MEDS: Warfarin Sodium 5 MG TAB PO SCH (17:03)
[2020-09-06] MEDS: Melatonin 3 MG TAB PO PRN (20:18)
[2020-09-07] MEDS: Levothyroxine Sodium 112 MCG TAB PO SCH (05:00)
[2020-09-07 05:20] LABS: INR-International Normal Ratio 2.2; Prothrombin Time 24.8 sec (12.0-14.7)
[2020-09-07] MEDS: Potassium Chloride 10 MEQ TAB PO SCH (09:07)
[2020-09-07] MEDS: Lorazepam 1 MG TAB PO SCH ×2 (09:07→20:27)
[2020-09-07] MEDS: Digoxin 0.125 MG TAB PO SCH (09:07)
[2020-09-07] MEDS: Propranolol HCl LA 60 MG CAP PO SCH (09:07)
[2020-09-07] MEDS: Aspirin 81 mg Enteric Coated Tablet PO SCH (09:07)
[2020-09-07] MEDS: Gabapentin 300 MG CAP PO SCH ×3 (09:08→20:27)
[2020-09-07] MEDS: Polyethylene Glycol 3350 17 GM Packet PO SCH (09:08)
[2020-09-07] MEDS: Calcium Carbonate 600 MG + Vit D TAB PO SCH (09:08)
--- NOTE | 2020-09-07 10:39 | PRG ---
DATE OF SERVICE: 09/07/2020 SUBJECTIVE: The patient said she is doing good today. She is up, dressed, having breakfast and fixing to go to therapy. OBJECTIVE: GENERAL: The patient is sitting up in a chair, alert, talkative, appears very comfortable and very pleasant. VITAL SIGNS: Show a temperature 97.4 axillary, pulse 82, respirations 18, temperature 98% on room air, blood pressure 102/69. LUNGS: Clear. HEART: Regular rate. CHEST: Chest wall nontender. The area of soreness over that left lower posterior chest is better today. She said that is the area that her gait belt may have bruised that area. EXTREMITIES: Her extremities have no edema. The right shoulder, no edema or bruising. LABORATORY DATA: INR today is 2.2. ASSESSMENT: 1. Generalized weakness. a. Secondary to recent hospitalization. b. Improved. Walking further and transferring easier as of 09/07. 2. Hospitalized at [facility] from 08/06 to 08/10 for syncopal episode secondary to probable orthostatic hypotensive episode triggered by mild dehydration. a. Complicated by fall and fracture, right humeral neck and urinary retention requiring temporary Cha catheter. 3. History of orthostatic hypotension. a. Stable. b. No evidence of orthostatic change or repeat syncopal episode as of 09/07. 4. Paroxysmal atrial fibrillation. a. Presently in regular rhythm. 5. Acute metabolic encephalopathy, resolved. 6. Minimally displaced fracture of the right humeral neck. a. Secondary to a fall on 08/06. b. Improved pain control. Range of motion improving as of 09/07. 7. Tremor, stable. 8. Anxiety, controlled. 9. Urinary retention. a. Required a catheter from 08/08 to 08/17. b. Continues to void with no problems as of 09/07. 10. Hypothyroidism. 11. Gastroesophageal reflux disease, controlled. 12. Peripheral neuropathy. 13. Recent urinary tract infection, resolved with no recurrence. PLAN: Continue present care. Continue PT and OT. As the patient's strength and steadiness improves a little further, she will be able to go home, where her sister will be assisting her. Job ID: [id number] [facility]
[2020-09-07] MEDS: Warfarin Sodium 5 MG TAB PO SCH (17:14)
[2020-09-07] MEDS: Warfarin Sodium 1 MG TAB PO SCH (17:15)
[2020-09-08 05:18] LABS: INR-International Normal Ratio 2.3; Prothrombin Time 25.6 sec (12.0-14.7)
[2020-09-08] MEDS: Levothyroxine Sodium 112 MCG TAB PO SCH (05:47)
[2020-09-08] MEDS: Aspirin 81 mg Enteric Coated Tablet PO SCH (09:44)
[2020-09-08] MEDS: Potassium Chloride 10 MEQ TAB PO SCH (09:44)
[2020-09-08] MEDS: Lorazepam 1 MG TAB PO SCH ×2 (09:44→20:50)
[2020-09-08] MEDS: Acetaminophen 325 MG TAB PO PRN (09:45)
[2020-09-08] MEDS: Gabapentin 300 MG CAP PO SCH ×3 (09:45→20:49)
[2020-09-08] MEDS: Digoxin 0.125 MG TAB PO SCH (09:45)
[2020-09-08] MEDS: Calcium Carbonate 600 MG + Vit D TAB PO SCH (09:45)
[2020-09-08] MEDS: Polyethylene Glycol 3350 17 GM Packet PO SCH (09:45)
[2020-09-08] MEDS: Propranolol HCl LA 60 MG CAP PO SCH (09:45)
[2020-09-08] MEDS: Warfarin Sodium 5 MG TAB PO SCH (17:46)
[2020-09-08] MEDS: Warfarin Sodium 1 MG TAB PO SCH (17:46)
[2020-09-09 05:00] LABS: INR-International Normal Ratio 2.1; Prothrombin Time 23.9 sec (12.0-14.7)
[2020-09-09] MEDS: Levothyroxine Sodium 112 MCG TAB PO SCH (05:21)
[2020-09-09 08:58] LABS: ALT (SGPT) 17 U/L (8-55); AST (SGOT) 24 U/L (5-34); Albumin 3.6 g/dL (3.4-4.8); Alkaline Phosphatase 165 U/L (40-110); Anion Gap 16 mmol/L (10-20); BUN (Urea Nitrogen) 16 mg/dL (9.8-20.1); Bilirubin, Total 0.3 mg/dL (0.2-1.2); Calc. Creatinine Clearance 45 mL/min (70-130); Calcium 8.7 mg/dL (7.8-10.44); Carbon Dioxide 29 mmol/L (23-31); Estimated GFR-MDRD 73; Glucose 81 mg/dL (83-110); Potassium 4.1 mmol/L (3.5-5.1); Protein, Total 6.6 g/dL (6.0-8.3); Sodium 140 mmol/L (136-145)
[2020-09-09] MEDS: Propranolol HCl LA 60 MG CAP PO SCH (09:02)
[2020-09-09] MEDS: Calcium Carbonate 600 MG + Vit D TAB PO SCH (09:02)
[2020-09-09] MEDS: Gabapentin 300 MG CAP PO SCH ×3 (09:02→22:00)
[2020-09-09] MEDS: Aspirin 81 mg Enteric Coated Tablet PO SCH (09:02)
[2020-09-09] MEDS: Digoxin 0.125 MG TAB PO SCH (09:03)
[2020-09-09] MEDS: Potassium Chloride 10 MEQ TAB PO SCH (09:03)
[2020-09-09] MEDS: Lorazepam 1 MG TAB PO SCH ×2 (09:03→22:00)
[2020-09-09] MEDS: Polyethylene Glycol 3350 17 GM Packet PO SCH (09:04)
[2020-09-09 09:09] LABS: Chloride 99 mmol/L (98-107)
--- NOTE | 2020-09-09 09:42 | PRG ---
DATE OF SERVICE: 09/09/2020 SUBJECTIVE: The patient says she is doing better. Shoulders she is using more, still a little sore though. She said she is doing better with her walking and transfer. Her balance is better. She does not feel yet strong enough to be able to manage at home. The aide said that she is dressing herself better, but needs assistance. OBJECTIVE: GENERAL: The patient is sitting up in a geriatric chair and needed a little help straightening up in that chair. She is alert, talkative, looks better, and appears in no distress. VITAL SIGNS: Her temperature is 97.9; her pulse is 73; respirations 16; O2 saturation 97%; her blood pressure lying 112/73, standing 126/77, and her sitting pressure was 122/62. LUNGS: Clear. HEART: Regular rate. EXTREMITIES: No edema. LABORATORY DATA: Her INR is 2.1. ASSESSMENT: 1. Generalized weakness. a. Secondary to recent hospitalization. b. Improved. Walking further, transferring easier, balance improving as of 09/09. 2. Hospitalized at [facility] from 08/06 to 08/10 for syncopal episode secondary to probable orthostatic hypotensive episode triggered by mild dehydration. a. Complicated by fall and fracture of the right humeral neck and urinary retention requiring temporary Cha catheter. 3. History of orthostatic hypotension. a. No evidence of orthostatic changes or repeat syncopal episode as of 09/09. 4. Paroxysmal atrial fibrillation. a. Presently in a regular rhythm. 5. Acute metabolic encephalopathy, resolved. 6. Minimally displaced fracture of the right humeral neck. a. Secondary to a fall on 08/06. b. Continued improvement with improved range of motion as of 09/09. 7. Tremors, stable. 8. Anxiety, controlled. 9. Urinary retention. a. Required a catheter from 08/08 to 08/17. b. Continues to void with no problem as of 09/09. 10. Hypothyroidism. 11. Gastroesophageal reflux disease, controlled. 12. Peripheral neuropathy, controlled. 13. Recent urinary tract infection, resolved with no recurrence as of 09/09. PLAN: The patient is doing better. Her strength is improving. Her balance is gradually improving. She is starting to do more with her self-care, but still needing assistance. She will benefit by additional days here to continue with her strengthening and balance and self-care. We will recheck CBC and CMP and PT/INR in the morning. Job ID: [id number] [facility]
[2020-09-09] MEDS: Warfarin Sodium 1 MG TAB PO SCH (17:15)
[2020-09-09] MEDS: Warfarin Sodium 5 MG TAB PO SCH (17:15)
[2020-09-10 05:43] LABS: #Basophils 0.1 thou/uL (0.0-0.2); #Eosinphils 0.1 thou/uL (0.0-0.7); #Lymphocytes 1.7 thou/uL (1.20-3.40); #Monocytes 0.5 thou/uL (0.11-0.59); %Basophils 1.5 % (0.0-1.0); %Lymphocytes 38.1 % (21.0-51.0); %Monocytes 12.2 % (0.0-10.0); %Neutrophils 46.2 % (42.0-75.0); Hemoglobin 12.4 g/dL (12.0-16.0); INR-International Normal Ratio 2.2; Mean Corpuscular HGB CONC 31.2 g/dL (32.0-36.0); Mean Corpuscular Hemoglobin 30.1 pg (27.0-31.0); Mean Corpuscular Volume 96.4 fL (78.0-98.0); Mean Platelet Volume 6.5 fL (7.4-10.4); Platelet Count 306 thou/uL (130-400); Prothrombin Time 24.4 sec (12.0-14.7); RBC Distribution Width 14.2 % (11.5-14.5); Red Blood Cell (RBC) Count 4.14 mill/uL (4.20-5.40); White Blood Cell (WBC) Count 4.4 thou/uL (4.8-10.8)
[2020-09-10] MEDS: Levothyroxine Sodium 112 MCG TAB PO SCH (06:01)
[2020-09-10] MEDS: Lorazepam 1 MG TAB PO SCH ×2 (08:45→20:48)
[2020-09-10] MEDS: Calcium Carbonate 600 MG + Vit D TAB PO SCH (08:46)
[2020-09-10] MEDS: Aspirin 81 mg Enteric Coated Tablet PO SCH (08:46)
[2020-09-10] MEDS: Propranolol HCl LA 60 MG CAP PO SCH (08:46)
[2020-09-10] MEDS: Digoxin 0.125 MG TAB PO SCH (08:46)
[2020-09-10] MEDS: Potassium Chloride 10 MEQ TAB PO SCH (08:46)
[2020-09-10] MEDS: Gabapentin 300 MG CAP PO SCH ×3 (08:47→20:49)
[2020-09-10] MEDS: Polyethylene Glycol 3350 17 GM Packet PO SCH (08:48)
[2020-09-10] MEDS: Warfarin Sodium 1 MG TAB PO SCH (17:15)
[2020-09-10] MEDS: Warfarin Sodium 5 MG TAB PO SCH (17:16)
[2020-09-10] MEDS: Melatonin 3 MG TAB PO PRN (20:49)
[2020-09-11] MEDS: Levothyroxine Sodium 112 MCG TAB PO SCH (05:34)
[2020-09-11] MEDS: Polyethylene Glycol 3350 17 GM Packet PO SCH (09:06)
[2020-09-11] MEDS: Calcium Carbonate 600 MG + Vit D TAB PO SCH (09:07)
[2020-09-11] MEDS: Gabapentin 300 MG CAP PO SCH ×3 (09:07→20:08)
[2020-09-11] MEDS: Aspirin 81 mg Enteric Coated Tablet PO SCH (09:07)
[2020-09-11] MEDS: Propranolol HCl LA 60 MG CAP PO SCH (09:07)
[2020-09-11] MEDS: Potassium Chloride 10 MEQ TAB PO SCH (09:07)
[2020-09-11] MEDS: Digoxin 0.125 MG TAB PO SCH (09:07)
[2020-09-11] MEDS: Lorazepam 1 MG TAB PO SCH ×2 (09:09→20:08)
[2020-09-11] MEDS: Warfarin Sodium 1 MG TAB PO SCH (17:33)
[2020-09-11] MEDS: Warfarin Sodium 5 MG TAB PO SCH (17:44)
[2020-09-11] MEDS: Melatonin 3 MG TAB PO PRN (20:08)
[2020-09-12] MEDS: Levothyroxine Sodium 112 MCG TAB PO SCH (05:26)
--- NOTE | 2020-09-12 05:45 | PRG ---
DATE OF SERVICE: 09/11/2020 SUBJECTIVE: Patient says she is doing good this morning, rested well, making progress with her therapy. OBJECTIVE: GENERAL: The patient is up in a chair, dressed. She is talkative, hard of hearing, hears best out of the left ear. She appears very comfortable. VITAL SIGNS: Her temperature shows 97.9, pulse 82, respirations 18, O2 saturation 98% on room air, blood pressure 124/75. LUNGS: Clear. HEART: Regular rate. EXTREMITIES: Right shoulder, no bruising, swelling down, range of motion improving. LABORATORY DATA: From 09/09 shows sodium 140, potassium of 4.1, BUN is 16, creatinine 0.75, glucose 81. Her H and H on 09/10 are 12.4 and 39.9, improved, and her INR from yesterday 2.2. ASSESSMENT: 1. Generalized weakness. a. Secondary to recent hospitalization. b. Improved. Walking further, transferring easier, balance improving as of 09/11. 2. Hospitalized at [facility] from 08/06 to 08/10 for syncope secondary to probable orthostatic hypotension triggered by mild dehydration. a. Complicated by fall and fracture of the right humeral neck and urinary retention requiring temporary Cha catheter. 3. History of orthostatic hypotension. a. No evidence of orthostatic changes. She has had no repeat syncopal episodes as of 09/11. 4. Paroxysmal atrial fibrillation. a. Presently regular rate, that rate is controlled. b. INR therapeutic. 5. Acute metabolic encephalopathy, resolved. 6. Minimally displaced fracture, right humeral neck. a. Secondary to a fall on 08/06. b. Continued improvement. Improvement in range of motion as of 09/11. 7. Tremors, stable .. 8. Anxiety, controlled. 9. Urinary retention. a. Required a catheter from 08/08 to 08/17. b. Continues to void with no problems as of 09/11. 10. Hypothyroidism. 11. Gastroesophageal reflux disease, controlled. 12. Peripheral neuropathy, controlled. 13. Urinary tract infection, resolved with no recurrence as of 09/11. PLAN: The patient continues to make progress. Her balance is doing better. We will continue present care. Continue PT and OT. We will tentatively plan on discharge to home where her sister will be there to help her for Sunday, 09/16. Job ID: [id number] [facility]
[2020-09-12] MEDS: Aspirin 81 mg Enteric Coated Tablet PO SCH (08:47)
[2020-09-12] MEDS: Potassium Chloride 10 MEQ TAB PO SCH (08:47)
[2020-09-12] MEDS: Propranolol HCl LA 60 MG CAP PO SCH (08:47)
[2020-09-12] MEDS: Polyethylene Glycol 3350 17 GM Packet PO SCH (08:48)
[2020-09-12] MEDS: Digoxin 0.125 MG TAB PO SCH (08:48)
[2020-09-12] MEDS: Gabapentin 300 MG CAP PO SCH ×3 (08:48→20:10)
[2020-09-12] MEDS: Calcium Carbonate 600 MG + Vit D TAB PO SCH (08:48)
[2020-09-12] MEDS: Lorazepam 1 MG TAB PO SCH ×2 (08:50→20:09)
[2020-09-12] MEDS: Warfarin Sodium 1 MG TAB PO SCH (17:13)
[2020-09-12] MEDS: Warfarin Sodium 5 MG TAB PO SCH (17:14)
[2020-09-12] MEDS: Melatonin 3 MG TAB PO PRN (20:11)
[2020-09-13] MEDS: Levothyroxine Sodium 112 MCG TAB PO SCH (05:21)
[2020-09-13 05:29] LABS: INR-International Normal Ratio 2.1; Prothrombin Time 23.7 sec (12.0-14.7)
[2020-09-13] MEDS: Polyethylene Glycol 3350 17 GM Packet PO SCH (08:27)
[2020-09-13] MEDS: Lorazepam 1 MG TAB PO SCH ×2 (08:28→21:09)
[2020-09-13] MEDS: Aspirin 81 mg Enteric Coated Tablet PO SCH (08:28)
[2020-09-13] MEDS: Propranolol HCl LA 60 MG CAP PO SCH (08:28)
[2020-09-13] MEDS: Digoxin 0.125 MG TAB PO SCH (08:28)
[2020-09-13] MEDS: Potassium Chloride 10 MEQ TAB PO SCH (08:28)
[2020-09-13] MEDS: Gabapentin 300 MG CAP PO SCH ×3 (08:29→21:08)
[2020-09-13] MEDS: Calcium Carbonate 600 MG + Vit D TAB PO SCH (08:29)
--- NOTE | 2020-09-13 09:01 | PRG ---
DATE OF SERVICE: 09/13/2020 SUBJECTIVE: The patient says she is feeling good. Occupational therapist said she has been doing very well. She is dressing herself. She is walking further, getting up on her own. Her balance is much better. We are tentatively looking to discharge her on Monday 09/17. This will give a few additional days for her to continue to practice and gain more strength. OBJECTIVE: GENERAL: The patient is sitting up in a chair in physical therapy working her arms and doing very well. VITAL SIGNS: Show a temperature 97.1, her pulse 79, respirations 16, O2 saturation 96% on room air, and blood pressure 116/63. LUNGS: Clear. HEART: Regular rate. EXTREMITIES: No edema. LABORATORY DATA: Her INR is 2.1. ASSESSMENT: 1. Generalized weakness. a. Secondary to recent hospitalization. b. Improved. Walking further, transferring easily. Balance improving as of 09/13. 2. Hospitalized at [facility] from 08/06 through 08/10 for syncope secondary to probable orthostatic hypotension triggered by mild dehydration. a. Complicated by fall and fracture of the right humeral neck and urinary retention requiring temporary Cha catheter. 3. History of orthostatic hypotension. a. No evidence of orthostatic changes and no repeat syncopal episodes as of 09/13. 4. Paroxysmal atrial fibrillation. a. Presently regular rate with rate control. b. INR therapeutic. 5. Acute metabolic encephalopathy, resolved. 6. Minimally displaced fracture, right humeral neck. a. Secondary to a fall on 08/06. b. Continued improvement. Pain controlled. Range of motion improving as of 09/13. 7. Tremors, stable. 8. Anxiety, controlled. 9. Urinary retention. a. Required a catheter from 08/08 through 08/17. Continues to void with no problem as of 09/13. 10. Hypothyroidism. 11. Gastroesophageal reflux disease, controlled. 12. Peripheral neuropathy, controlled. 13. Urinary tract infection, resolved and no recurrence as of 09/13. PLAN: The patient is making continued progress. We will continue therapy this week and anticipate discharge on Sunday, 09/17. Job ID: [id number] [facility]
[2020-09-13] MEDS: Warfarin Sodium 5 MG TAB PO SCH (17:32)
[2020-09-13] MEDS: Warfarin Sodium 1 MG TAB PO SCH (17:32)
[2020-09-14] MEDS: Levothyroxine Sodium 112 MCG TAB PO SCH (05:57)
[2020-09-14] MEDS: Polyethylene Glycol 3350 17 GM Packet PO SCH (08:06)
[2020-09-14] MEDS: Calcium Carbonate 600 MG + Vit D TAB PO SCH (08:07)
[2020-09-14] MEDS: Gabapentin 300 MG CAP PO SCH ×4 (08:07→20:52)
[2020-09-14] MEDS: Potassium Chloride 10 MEQ TAB PO SCH (08:07)
[2020-09-14] MEDS: Lorazepam 1 MG TAB PO SCH ×2 (08:07→20:51)
[2020-09-14] MEDS: Aspirin 81 mg Enteric Coated Tablet PO SCH (08:08)
[2020-09-14] MEDS: Propranolol HCl LA 60 MG CAP PO SCH (08:08)
[2020-09-14] MEDS: Digoxin 0.125 MG TAB PO SCH (08:08)
[2020-09-14] MEDS: Warfarin Sodium 1 MG TAB PO SCH (17:05)
[2020-09-14] MEDS: Warfarin Sodium 5 MG TAB PO SCH (17:05)
[2020-09-14] MEDS: Melatonin 3 MG TAB PO PRN (20:52)
[2020-09-15] MEDS: Levothyroxine Sodium 112 MCG TAB PO SCH (05:36)
[2020-09-15] MEDS: Gabapentin 300 MG CAP PO SCH ×3 (08:00→20:00)
[2020-09-15] MEDS: Calcium Carbonate 600 MG + Vit D TAB PO SCH (08:00)
[2020-09-15] MEDS: Propranolol HCl LA 60 MG CAP PO SCH (08:00)
[2020-09-15] MEDS: Aspirin 81 mg Enteric Coated Tablet PO SCH (08:00)
[2020-09-15] MEDS: Potassium Chloride 10 MEQ TAB PO SCH (08:00)
[2020-09-15] MEDS: Lorazepam 1 MG TAB PO SCH ×2 (08:00→19:59)
[2020-09-15] MEDS: Digoxin 0.125 MG TAB PO SCH (08:01)
[2020-09-15] MEDS: Polyethylene Glycol 3350 17 GM Packet PO SCH (08:01)
[2020-09-15] MEDS: Acetaminophen 325 MG TAB PO PRN (08:05)
[2020-09-15] MEDS: Warfarin Sodium 1 MG TAB PO SCH (16:18)
[2020-09-15] MEDS: Warfarin Sodium 5 MG TAB PO SCH (16:18)
[2020-09-15] MEDS: Melatonin 3 MG TAB PO PRN (19:57)
[2020-09-16] MEDS: Levothyroxine Sodium 112 MCG TAB PO SCH (05:26)
[2020-09-16 06:41] LABS: INR-International Normal Ratio 2.4; Prothrombin Time 26.6 sec (12.0-14.7)
--- NOTE | 2020-09-16 07:04 | PRG ---
DATE OF SERVICE: 09/14/2020 SUBJECTIVE: The patient says she is feeling good. She is doing very well with therapy. Her strength is getting better. Her transfers are getting easier. She is looking forward to going home on 09/17. OBJECTIVE: GENERAL: The patient is sitting up in a chair, dressed. She is alert, appears comfortable, in no distress. VITAL SIGNS: Her temp is 98.1, pulse was 73 last evening, this morning after activities 92, O2 saturation 96% to 98% on room air. Blood pressure lying 107/68, sitting 114/78, standing 105/63. LUNGS: Clear. HEART: Regular rate. EXTREMITIES: No edema. Right shoulder, increasing range of motion. No bruising, swelling resolving from the right shoulder. ASSESSMENT: 1. Generalized weakness. a. Secondary to recent hospitalization. b. Improving. Walking further, transferring easier, balance improved as of 09/14. 2. Hospitalized at [facility] from 08/06 through 08/10 for syncope secondary to probable orthostatic hypotension triggered by mild dehydration. a. Complicated by fall and fracture of the right humeral neck and urinary retention requiring temporary Cha catheter. 3. History of orthostatic hypotension. a. No evidence of orthostatic change. No repeat syncopal episode as of 09/14. 4. Paroxysmal atrial fibrillation. a. Rate controlled and in a regular rate. b. INR is therapeutic. 5. Acute metabolic encephalopathy, resolved. 6. Minimally displaced fracture of the right humeral neck. a. Secondary to a fall on 08/06. b. Continued improvement. Pain controlled. Range of motion improving as of 09/14. Tremor. Stable. 7. Anxiety, controlled. 8. Urinary retention. a. Required a Cha catheter from 08/08 through 08/17. Continues to void with no problem as of 09/13. 9. Hypothyroidism. 10. Gastroesophageal reflux disease, controlled. 11. Peripheral neuropathy, controlled. PLAN: Continue present care. Continue PT and OT. Anticipate discharge on 09/17. Job ID: [id number] [facility]
[2020-09-16] MEDS: Aspirin 81 mg Enteric Coated Tablet PO SCH (07:55)
[2020-09-16] MEDS: Calcium Carbonate 600 MG + Vit D TAB PO SCH (07:55)
[2020-09-16] MEDS: Lorazepam 1 MG TAB PO SCH ×2 (07:55→20:24)
[2020-09-16] MEDS: Potassium Chloride 10 MEQ TAB PO SCH (07:55)
[2020-09-16] MEDS: Propranolol HCl LA 60 MG CAP PO SCH (07:55)
[2020-09-16] MEDS: Polyethylene Glycol 3350 17 GM Packet PO SCH (07:56)
[2020-09-16] MEDS: Digoxin 0.125 MG TAB PO SCH (07:56)
[2020-09-16] MEDS: Gabapentin 300 MG CAP PO SCH ×3 (07:56→20:22)
[2020-09-16] MEDS: Warfarin Sodium 5 MG TAB PO SCH (16:50)
[2020-09-16] MEDS: Warfarin Sodium 1 MG TAB PO SCH (16:50)
[2020-09-16] MEDS: Melatonin 3 MG TAB PO PRN (20:21)
--- NOTE | 2020-09-17 04:59 | PRG ---
DATE OF SERVICE: 09/16/2020 SUBJECTIVE: The patient says she is doing very well. She is doing well with the therapies. She is excited to go home tomorrow. Her sister will be with her to help and arrangements for Home Health will be made. OBJECTIVE: GENERAL: The patient is sitting up in a chair. She is dressed. She is eating her breakfast. She appears comfortable, in no distress. VITAL SIGNS: Temperature 98, pulse 88, respirations 16, O2 saturation on room air 98%, her blood pressure supine 125/68, sitting 116/77, standing 110/69. LUNGS: Clear. HEART: Regular rate. EXTREMITIES: No edema. Right shoulder, no bruising, the swelling is all resolving. ASSESSMENT: 1. Generalized weakness. a. Secondary to recent hospitalization. b. Improved, walking further, transferring easier, balance continues to improve as of 09/16. 2. Hospitalized at [facility] from 08/06 to 08/10 for syncope secondary to orthostatic hypotension triggered by mild dehydration. a. Complicated by fall and fractured right humeral neck and urinary retention requiring temporary Cha catheter. 3. History of orthostatic hypotension. a. No evidence of significant orthostatic change. No repeat syncopal episode as of 09/16. 4. Paroxysmal atrial fibrillation. a. Rate controlled and in a regular rate. b. INR therapeutic. 5. Acute metabolic encephalopathy, resolved. 6. Minimally displaced fracture of the right humeral neck. a. Secondary to a fall on 08/06. b. Continued improvement. Pain controlled. Range of motion improving as of 09/16. 7. Tremor, stable. 8. Anxiety, controlled. 9. Urinary retention. a. Required Cha catheter from 08/08 to 08/17. Continues to void with no problem as of 08/17. 10. Hypothyroidism. 11. Gastroesophageal reflux disease, controlled. 12. Peripheral neuropathy, controlled. PLAN: Continue present care. Continue PT and OT. Anticipate discharge in the morning. Her INR today was 2.4. Job ID: [id number] [facility]
[2020-09-17 05:37] LABS: INR-International Normal Ratio 2.3; Prothrombin Time 25.2 sec (12.0-14.7)
[2020-09-17] MEDS: Levothyroxine Sodium 112 MCG TAB PO SCH (06:52)
[2020-09-17] MEDS: Lorazepam 1 MG TAB PO SCH (07:37)
[2020-09-17] MEDS: Gabapentin 300 MG CAP PO SCH (07:39)
[2020-09-17] MEDS: Potassium Chloride 10 MEQ TAB PO SCH (07:39)
[2020-09-17] MEDS: Propranolol HCl LA 60 MG CAP PO SCH (07:39)
[2020-09-17] MEDS: Aspirin 81 mg Enteric Coated Tablet PO SCH (07:39)
[2020-09-17] MEDS: Calcium Carbonate 600 MG + Vit D TAB PO SCH (07:39)
[2020-09-17] MEDS: Digoxin 0.125 MG TAB PO SCH (07:41)
[2020-09-17] MEDS: Polyethylene Glycol 3350 17 GM Packet PO SCH (07:44)
[2020-09-17 08:56] VITALS: BP 115/71; TEMP 97.8
--- NOTE | 2020-09-21 10:39 | DIS ---
DATE OF ADMISSION: 08/10/2020 DATE OF DISCHARGE: 09/17/2020 FINAL DIAGNOSES: 1. Generalized weakness. a. Secondary to recent hospitalization. b. Improved, walking further, transferring easier, balance continues to improve as of 09/17. 2. Hospitalized at [facility] from 08/06 to 08/10 for syncope secondary to orthostatic hypotension, triggered by mild dehydration. a. Complicated by fall and fracture of the right humeral neck and urinary retention requiring temporary Cha catheter. 3. History of orthostatic hypotension. a. No evidence of significant orthostatic changes. No recent syncopal episode as of 09/17. 4. Paroxysmal atrial fibrillation. a. Rate controlled and in a regular rhythm. b. INR therapeutic at 2.3 as of 09/17. 5. Acute metabolic encephalopathy, resolved. 6. Minimally displaced fracture right humeral neck. a. Secondary to a fall on 08/06. b. Healing with improvement in range of motion and pain controlled as of 09/17. 7. Tremor, stable. 8. Anxiety. 9. Urinary retention, required Cha catheter from 08/08 to 08/17. Continues to void with no problem as of 08/18. 10. Hypothyroidism. 11. Gastroesophageal reflux disease, controlled. 12. Peripheral neuropathy, controlled. 13. Urinary tract infection, resolved. SUMMARY: Patient is an 85-year-old white female, who has a history of paroxysmal atrial fibrillation, for which the rate has been controlled and on anticoagulant with Coumadin. She has also history of tremors, anxiety, hypothyroidism, peripheral neuropathy, and also orthostatic hypotension. The patient had a syncopal episode, falling, and sustaining a fracture of the right humeral neck on 08/06/20. She was hospitalized at [facility] and evaluated there and showed no evidence of intracranial injury from her CT scan of her brain. The syncope was felt to be from orthostatic hypotension, triggered by mild dehydration. She developed urinary retention while in the hospital and required temporary catheter. She also was much more confused than usual from a metabolic encephalopathy that gradually resolved. She was left very weak and right arm in a sling due to the fracture of the humeral neck. She was transferred to [facility] on 08/10/20 for purpose of physical therapy and occupational therapy. While here at [facility], the acute metabolic encephalopathy resolved. Her Cha catheter was removed on 08/17 and she has had no trouble voiding. She did have a urinary tract infection while hospitalized that was treated and resolved. The acute metabolic encephalopathy resolved. Her right shoulder was initially managed in a sling. After 2 weeks, she was begun on range of motion of the wrist and the elbow and then after 4 weeks, begin range of motion at the level of the shoulder. She made excellent progress with her physical therapy. She was walking up to 200 feet several times a day with just supervision and no assistive device. She was transferring with just standby assistance and she was dressing herself. Her balance had markedly improved. Her INR was therapeutic on 7 mg of Coumadin a day. By 09/17, her condition has improved such that it is felt like she can be managed at home. She lives at home, but her sister will be there to assist her and Home Health will also assist with her care and arrange for in-home PT and OT. DIET: Regular diet. Encourage liquids due to her tendency towards orthostatic hypotension. ACTIVITIES: Encourage patient to ambulate, get up cautiously and turn cautiously. Home Health will see patient with [facility] and arrange for in-home PT and OT. The patient will need a CBC, basic metabolic panel, and PT/INR in a week. MEDICATIONS: 1. Acetaminophen 325 mg two every 4 hours as needed. 2. Artificial Tears 2 drops in each eye q.i.d. as needed. 3. Aspirin 81 mg daily. 4. Caltrate D 600/200 one b.i.d. 5. Digoxin 0.125 mg daily. 6. Gabapentin 300 mg t.i.d. 7. Levothyroxine 112 mcg daily. 8. Lorazepam 1 mg b.i.d. 9. Melatonin 3 mg at bedtime p.r.n. 10. Pantoprazole 40 mg daily. 11. MiraLAX 17 g in 8 ounces of water daily. 12. Inderal LA 60 mg daily. 13. Senokot-S two b.i.d. p.r.n. 14. Warfarin 5 mg along with warfarin 2 mg daily. FOLLOWUP: The patient will be seen in my office in 2 weeks or this to be done as a telemedicine visit. CODE STATUS: Full code. Job ID: [id number] [facility]
== END 2020-09-17 14:27 | disposition home health service (06) | DRG 947 ==
LOC: MADMS 13:37
PROVIDERS: ADMIT Family Medicine; ATTEND Family Medicine
DX: R53.1 Weakness (principal); G92 Toxic encephalopathy; N39.0 Urinary tract infection, site not specified; S42.211D Unspecified displaced fracture of surgical neck of right humerus, subsequent encounter for fracture with routine healing; E86.0 Dehydration; R55 Syncope and collapse; I95.1 Orthostatic hypotension; I48.0 Paroxysmal atrial fibrillation; I49.5 Sick sinus syndrome; E03.9 Hypothyroidism, unspecified; F41.9 Anxiety disorder, unspecified; G62.9 Polyneuropathy, unspecified; K21.9 Gastro-esophageal reflux disease without esophagitis; R33.9 Retention of urine, unspecified; Z79.01 Long term (current) use of anticoagulants; Z95.0 Presence of cardiac pacemaker; Z79.82 Long term (current) use of aspirin; Z79.899 Other long term (current) drug therapy; Z88.1 Allergy status to other antibiotic agents; Z88.2 Allergy status to sulfonamides; Z88.8 Allergy status to other drugs, medicaments and biological substances
CPT/HCPCS: 36415; 80048; 80053; 81001; 84443; 85025; 85610; 87077; 87086; 87186

== ENCOUNTER 2020-10-04 15:17 | Outpatient (CLI) | payer MEDICARE ==
[2020-10-04 15:26] LABS: INR-International Normal Ratio 1.8; Prothrombin Time 21.4 sec (12.0-14.7)
== END 2020-10-04 15:18 | disposition home or self-care (01) ==
LOC: MADLABBHPM 15:17
PROVIDERS: ATTEND Family Medicine
DX: I48.91 Unspecified atrial fibrillation (principal)
CPT/HCPCS: 85610

== ENCOUNTER 2020-10-18 16:31 | Outpatient (CLI) | payer MEDICARE ==
[2020-10-18 16:38] LABS: #Basophils 0.1 thou/uL (0.0-0.2); #Eosinphils 0.1 thou/uL (0.0-0.7); #Lymphocytes 1.7 thou/uL (1.20-3.40); #Monocytes 0.5 thou/uL (0.11-0.59); %Basophils 1.3 % (0.0-1.0); %Lymphocytes 32.3 % (21.0-51.0); %Monocytes 9.2 % (0.0-10.0); %Neutrophils 56.3 % (42.0-75.0); Hemoglobin 12.8 g/dL (12.0-16.0); Mean Corpuscular HGB CONC 31.1 g/dL (32.0-36.0); Mean Corpuscular Hemoglobin 30.9 pg (27.0-31.0); Mean Corpuscular Volume 99.5 fL (78.0-98.0); Mean Platelet Volume 6.5 fL (7.4-10.4); Platelet Count 230 thou/uL (130-400); RBC Distribution Width 12.7 % (11.5-14.5); Red Blood Cell (RBC) Count 4.15 mill/uL (4.20-5.40); White Blood Cell (WBC) Count 5.3 thou/uL (4.8-10.8)
[2020-10-18 16:42] LABS: INR-International Normal Ratio 3.3; Prothrombin Time 34.2 sec (12.0-14.7)
== END 2020-10-18 16:32 | disposition home or self-care (01) ==
LOC: MADLAB 16:31
PROVIDERS: ATTEND Family Medicine
DX: I95.1 Orthostatic hypotension (principal)
CPT/HCPCS: 85025; 85610

== ENCOUNTER 2020-12-21 13:33 | Outpatient (CLI) | payer MEDICARE ==
[2020-12-21 13:45] LABS: Prothrombin Time 22.7 sec (12.0-14.7)
[2020-12-21 13:55] LABS: ALT (SGPT) 11 U/L (8-55); AST (SGOT) 24 U/L (5-34); Albumin 4.1 g/dL (3.4-4.8); Alkaline Phosphatase 77 U/L (40-110); Anion Gap 12 mmol/L (10-20); BUN (Urea Nitrogen) 17 mg/dL (9.8-20.1); Bilirubin, Total 0.4 mg/dL (0.2-1.2); Calc. Creatinine Clearance 0 mL/min (70-130); Calcium 8.7 mg/dL (7.8-10.44); Carbon Dioxide 32 mmol/L (23-31); Chloride 101 mmol/L (98-107); Cholesterol 184 mg/dl (< 200 Desired); Globulin 2.8 g/dL (2.4-3.5); Glucose 80 mg/dL (83-110); HDL Cholesterol 61 mg/dL (>60 Neg Risk); LDL Cholesterol, Calculated 108 mg/dL; Potassium 4.1 mmol/L (3.5-5.1); Protein, Total 6.9 g/dL (5.8-8.1); Sodium 141 mmol/L (136-145); Triglycerides 77 mg/dL (Less than 150)
== END 2020-12-21 13:34 | disposition home or self-care (01) ==
LOC: MADLAB 13:33
PROVIDERS: ATTEND Family Medicine
DX: I48.0 Paroxysmal atrial fibrillation (principal); E78.5 Hyperlipidemia, unspecified; I25.10 Atherosclerotic heart disease of native coronary artery without angina pectoris; I95.1 Orthostatic hypotension
CPT/HCPCS: 80053; 80061; 85610

== ENCOUNTER 2021-02-17 12:45 | Outpatient (CLI) | payer MEDICARE ==
[2021-02-17 13:07] LABS: INR-International Normal Ratio 2.2; Prothrombin Time 24.7 sec (12.0-14.7)
== END 2021-02-17 12:46 | disposition home or self-care (01) ==
LOC: MADLAB 12:45
PROVIDERS: ATTEND Family Medicine
DX: I48.91 Unspecified atrial fibrillation (principal)
CPT/HCPCS: 36415; 85610

== ENCOUNTER 2023-02-28 14:53 | Inpatient (IN) | payer MEDICARE ==
[2023-02-28] MEDS ORDERED: Furosemide 20 MG TAB PO PRN (19:28)
[2023-02-28] MEDS ORDERED: Rivaroxaban 15 MG TAB PO SCH (20:00)
[2023-02-28] MEDS: Ezetimibe 10 MG TAB PO SCH (22:28)
[2023-02-28] MEDS: metroNIDAZOLE 250 MG TAB PO SCH (22:28)
[2023-02-28] MEDS: Gabapentin 300 MG CAP PO SCH (22:28)
[2023-02-28] MEDS: Donepezil HCl 10 MG TAB PO SCH (22:29)
[2023-02-28] MEDS: Lorazepam 1 MG TAB PO SCH (22:29)
[2023-03-01 05:07] LABS: Hemoglobin 13.2 g/dL (12.0-16.0); Platelet Count 207 10x3/uL (130-400)
[2023-03-01] MEDS: Levothyroxine Sodium 112 MCG TAB PO SCH ×2 (06:20→08:03)
[2023-03-01] MEDS: Gabapentin 300 MG CAP PO SCH ×3 (08:03→20:24)
[2023-03-01] MEDS: metroNIDAZOLE 250 MG TAB PO SCH ×3 (08:03→20:24)
[2023-03-01] MEDS: Lorazepam 1 MG TAB PO SCH ×2 (08:04→20:23)
[2023-03-01] MEDS: Aspirin 81 mg Enteric Coated Tablet PO SCH (08:04)
[2023-03-01] MEDS: Digoxin 0.125 MG TAB PO SCH (08:05)
[2023-03-01] MEDS: Rivaroxaban 15 MG TAB PO SCH (17:43)
[2023-03-01] MEDS: Donepezil HCl 10 MG TAB PO SCH (20:22)
[2023-03-01] MEDS: Ezetimibe 10 MG TAB PO SCH (20:23)
[2023-03-02] MEDS: Levothyroxine Sodium 112 MCG TAB PO SCH (05:32)
[2023-03-02] MEDS: Digoxin 0.125 MG TAB PO SCH (08:38)
[2023-03-02] MEDS: Gabapentin 300 MG CAP PO SCH ×3 (08:39→20:49)
[2023-03-02] MEDS: metroNIDAZOLE 250 MG TAB PO SCH ×3 (08:39→20:50)
[2023-03-02] MEDS: Lorazepam 1 MG TAB PO SCH ×2 (08:39→20:50)
[2023-03-02] MEDS: Aspirin 81 mg Enteric Coated Tablet PO SCH (08:40)
[2023-03-02 15:11] LABS: Bilirubin Negative (Negative); Blood, Urine Negative (Negative); Clarity Clear (Clear); Glucose, Urine (Dipstick) Negative (Negative); Ketone, Urine Negative (Negative); Leukocyte Negative (Negative); Nitrite Positive (Negative); Protein, Urine (Dipstick) Trace mg/dL (Neg-Trace); Urobilinogen 0.2 mg/dL (Less than 2); pH, Urine 6.5 (5.0-9.0)
[2023-03-02 15:22] LABS: Specific Gravity, Urine 1.027 (1.002-1.036)
[2023-03-02 15:24] LABS: Bacteria/HPF Rare-Few HPF (None Seen); Mucous/LPF 1+ LPF (<2+); RBC/HPF None Seen HPF (0-3); Squamous Epithelial 0-3 HPF (0-3)
[2023-03-02] MEDS: Rivaroxaban 15 MG TAB PO SCH (17:35)
[2023-03-02] MEDS: Donepezil HCl 10 MG TAB PO SCH (20:48)
[2023-03-02] MEDS: Ezetimibe 10 MG TAB PO SCH (20:49)
[2023-03-03] MEDS: Levothyroxine Sodium 112 MCG TAB PO SCH (06:02)
[2023-03-03] MEDS: metroNIDAZOLE 250 MG TAB PO SCH ×3 (08:28→21:24)
[2023-03-03] MEDS: Gabapentin 300 MG CAP PO SCH ×3 (08:28→21:24)
[2023-03-03] MEDS: Lorazepam 1 MG TAB PO SCH ×2 (08:29→21:23)
[2023-03-03] MEDS: Aspirin 81 mg Enteric Coated Tablet PO SCH (08:29)
[2023-03-03] MEDS: Digoxin 0.125 MG TAB PO SCH (08:31)
[2023-03-03] MEDS: Acetaminophen 500 MG TAB PO PRN (14:44)
[2023-03-03] MEDS: Lantiseptic Ointment 130 GM JAR TOP PRN (16:55)
[2023-03-03] MEDS: Rivaroxaban 15 MG TAB PO SCH (16:55)
[2023-03-03] MEDS: Donepezil HCl 10 MG TAB PO SCH (21:23)
[2023-03-03] MEDS: Ezetimibe 10 MG TAB PO SCH (21:23)
[2023-03-04] MEDS: Levothyroxine Sodium 112 MCG TAB PO SCH (05:31)
[2023-03-04] MEDS: Gabapentin 300 MG CAP PO SCH ×3 (08:28→21:46)
[2023-03-04] MEDS: Lorazepam 1 MG TAB PO SCH ×2 (08:28→21:46)
[2023-03-04] MEDS: Acetaminophen 500 MG TAB PO PRN (08:29)
[2023-03-04] MEDS: metroNIDAZOLE 250 MG TAB PO SCH ×3 (08:29→21:46)
[2023-03-04] MEDS: Aspirin 81 mg Enteric Coated Tablet PO SCH (08:29)
[2023-03-04] MEDS: Lantiseptic Ointment 130 GM JAR TOP PRN (08:31)
[2023-03-04] MEDS: Digoxin 0.125 MG TAB PO SCH (08:35)
[2023-03-04] MEDS: Rivaroxaban 15 MG TAB PO SCH (17:07)
[2023-03-04] MEDS: Donepezil HCl 10 MG TAB PO SCH (21:46)
[2023-03-04] MEDS: Ezetimibe 10 MG TAB PO SCH (21:46)
[2023-03-05] MEDS: Levothyroxine Sodium 112 MCG TAB PO SCH (05:54)
[2023-03-05] MEDS: metroNIDAZOLE 250 MG TAB PO SCH ×4 (10:14→22:25)
[2023-03-05] MEDS: Aspirin 81 mg Enteric Coated Tablet PO SCH (10:14)
[2023-03-05] MEDS: Digoxin 0.125 MG TAB PO SCH (10:14)
[2023-03-05] MEDS: Gabapentin 300 MG CAP PO SCH ×4 (10:15→22:24)
[2023-03-05] MEDS: Lorazepam 1 MG TAB PO SCH ×2 (10:16→22:23)
[2023-03-05] MEDS: Rivaroxaban 15 MG TAB PO SCH (16:56)
[2023-03-05] MEDS: Acetaminophen 500 MG TAB PO PRN (17:15)
[2023-03-05] MEDS: Donepezil HCl 10 MG TAB PO SCH (22:24)
[2023-03-05] MEDS: Ezetimibe 10 MG TAB PO SCH (22:24)
[2023-03-06] MEDS: Acetaminophen 500 MG TAB PO PRN ×2 (05:26→15:16)
[2023-03-06] MEDS: Levothyroxine Sodium 112 MCG TAB PO SCH (05:26)
[2023-03-06] MEDS: Gabapentin 300 MG CAP PO SCH ×3 (08:32→20:58)
[2023-03-06] MEDS: Aspirin 81 mg Enteric Coated Tablet PO SCH (08:32)
[2023-03-06] MEDS: metroNIDAZOLE 250 MG TAB PO SCH ×3 (08:32→20:58)
[2023-03-06] MEDS: Digoxin 0.125 MG TAB PO SCH (08:33)
[2023-03-06] MEDS: Lantiseptic Ointment 130 GM JAR TOP PRN (08:34)
[2023-03-06] MEDS: Lorazepam 1 MG TAB PO SCH ×2 (08:34→20:58)
[2023-03-06] MEDS: Rivaroxaban 15 MG TAB PO SCH (17:40)
[2023-03-06] MEDS: Donepezil HCl 10 MG TAB PO SCH (20:58)
[2023-03-06] MEDS: Ezetimibe 10 MG TAB PO SCH (20:58)
[2023-03-07] MEDS: Levothyroxine Sodium 112 MCG TAB PO SCH (05:28)
[2023-03-07] MEDS: Lorazepam 1 MG TAB PO SCH ×2 (08:09→21:28)
[2023-03-07] MEDS: Gabapentin 300 MG CAP PO SCH ×3 (08:10→21:28)
[2023-03-07] MEDS: Aspirin 81 mg Enteric Coated Tablet PO SCH (08:10)
[2023-03-07] MEDS: metroNIDAZOLE 250 MG TAB PO SCH ×3 (08:10→21:28)
[2023-03-07] MEDS: Digoxin 0.125 MG TAB PO SCH (08:11)
[2023-03-07 13:07] VITALS: BMI 17.5
[2023-03-07] MEDS: Rivaroxaban 15 MG TAB PO SCH (17:15)
[2023-03-07] MEDS: Acetaminophen 500 MG TAB PO PRN (17:15)
[2023-03-07] MEDS: Donepezil HCl 10 MG TAB PO SCH (21:28)
[2023-03-07] MEDS: Ezetimibe 10 MG TAB PO SCH (21:28)
[2023-03-08] MEDS: Levothyroxine Sodium 112 MCG TAB PO SCH (05:38)
[2023-03-08] MEDS: Digoxin 0.125 MG TAB PO SCH (08:10)
[2023-03-08] MEDS: Aspirin 81 mg Enteric Coated Tablet PO SCH (08:10)
[2023-03-08] MEDS: Gabapentin 300 MG CAP PO SCH ×3 (08:11→21:57)
[2023-03-08] MEDS: Lorazepam 1 MG TAB PO SCH ×2 (08:11→21:57)
[2023-03-08] MEDS: Acetaminophen 500 MG TAB PO PRN (08:57)
[2023-03-08] MEDS: Rivaroxaban 15 MG TAB PO SCH (16:53)
[2023-03-08] MEDS: Ezetimibe 10 MG TAB PO SCH (21:56)
[2023-03-08] MEDS: Donepezil HCl 10 MG TAB PO SCH (21:56)
[2023-03-09] MEDS: Acetaminophen 500 MG TAB PO PRN ×2 (02:10→21:18)
[2023-03-09 05:40] LABS: ALT (SGPT) 8 U/L (8-55); AST (SGOT) 25 U/L (5-34); Alkaline Phosphatase 63 U/L (40-110); Anion Gap 12 mmol/L (10-20); BUN (Urea Nitrogen) 18 mg/dL (9.8-20.1); Bilirubin, Total 0.5 mg/dL (0.2-1.2); Calc. Creatinine Clearance 41 mL/min (70-130); Calcium 8.4 mg/dL (7.8-10.44); Carbon Dioxide 27 mmol/L (23-31); Chloride 105 mmol/L (98-107); Estimated GFR 79; Globulin 2.7 g/dL (2.4-3.5); Glucose 76 mg/dL (83-110); Potassium 4.7 mmol/L (3.5-5.1); Protein, Total 5.7 g/dL (5.8-8.1); Sodium 139 mmol/L (136-145)
[2023-03-09] MEDS: Levothyroxine Sodium 112 MCG TAB PO SCH (06:32)
[2023-03-09] MEDS: Lorazepam 1 MG TAB PO SCH ×2 (08:40→21:15)
[2023-03-09] MEDS: Gabapentin 300 MG CAP PO SCH ×3 (08:40→21:18)
[2023-03-09] MEDS: Digoxin 0.125 MG TAB PO SCH (08:40)
[2023-03-09] MEDS: Aspirin 81 mg Enteric Coated Tablet PO SCH (08:40)
[2023-03-09] MEDS: Rivaroxaban 15 MG TAB PO SCH (17:30)
[2023-03-09] MEDS: Donepezil HCl 10 MG TAB PO SCH (21:16)
[2023-03-09] MEDS: Ezetimibe 10 MG TAB PO SCH (21:17)
[2023-03-10] MEDS: Levothyroxine Sodium 112 MCG TAB PO SCH (05:30)
[2023-03-10] MEDS: Lorazepam 1 MG TAB PO SCH ×2 (09:09→20:48)
[2023-03-10] MEDS: Digoxin 0.125 MG TAB PO SCH (09:13)
[2023-03-10] MEDS: Gabapentin 300 MG CAP PO SCH ×3 (09:14→20:48)
[2023-03-10] MEDS: Aspirin 81 mg Enteric Coated Tablet PO SCH (09:15)
[2023-03-10] MEDS: Acetaminophen 500 MG TAB PO PRN (16:01)
[2023-03-10] MEDS: Rivaroxaban 15 MG TAB PO SCH (17:10)
[2023-03-10] MEDS: Donepezil HCl 10 MG TAB PO SCH (20:49)
[2023-03-10] MEDS: Ezetimibe 10 MG TAB PO SCH (20:49)
[2023-03-11] MEDS: Levothyroxine Sodium 112 MCG TAB PO SCH (05:41)
[2023-03-11] MEDS: Gabapentin 300 MG CAP PO SCH ×3 (09:07→21:35)
[2023-03-11] MEDS: Digoxin 0.125 MG TAB PO SCH (09:07)
[2023-03-11] MEDS: Aspirin 81 mg Enteric Coated Tablet PO SCH (09:07)
[2023-03-11] MEDS: Lorazepam 1 MG TAB PO SCH ×2 (09:08→21:35)
[2023-03-11] MEDS: Rivaroxaban 15 MG TAB PO SCH (17:13)
[2023-03-11] MEDS: Donepezil HCl 10 MG TAB PO SCH (21:34)
[2023-03-11] MEDS: Ezetimibe 10 MG TAB PO SCH (21:35)
[2023-03-12] MEDS: Levothyroxine Sodium 112 MCG TAB PO SCH (06:08)
[2023-03-12] MEDS: Aspirin 81 mg Enteric Coated Tablet PO SCH (08:35)
[2023-03-12] MEDS: Digoxin 0.125 MG TAB PO SCH (08:35)
[2023-03-12] MEDS: Gabapentin 300 MG CAP PO SCH ×3 (08:36→21:29)
[2023-03-12] MEDS: Lorazepam 1 MG TAB PO SCH ×2 (08:36→21:28)
[2023-03-12] MEDS: Rivaroxaban 15 MG TAB PO SCH (17:10)
[2023-03-12] MEDS: Ezetimibe 10 MG TAB PO SCH (21:28)
[2023-03-12] MEDS: Donepezil HCl 10 MG TAB PO SCH (21:29)
[2023-03-12] MEDS: Acetaminophen 500 MG TAB PO PRN (21:30)
[2023-03-13] MEDS: Acetaminophen 500 MG TAB PO PRN (06:01)
[2023-03-13] MEDS: Levothyroxine Sodium 112 MCG TAB PO SCH (06:02)
[2023-03-13] MEDS: Digoxin 0.125 MG TAB PO SCH (08:22)
[2023-03-13] MEDS: Gabapentin 300 MG CAP PO SCH ×3 (08:23→20:32)
[2023-03-13] MEDS: Aspirin 81 mg Enteric Coated Tablet PO SCH (08:23)
[2023-03-13] MEDS: Lantiseptic Ointment 130 GM JAR TOP PRN (08:24)
[2023-03-13] MEDS: Lorazepam 1 MG TAB PO SCH ×2 (08:25→20:31)
[2023-03-13] MEDS: Rivaroxaban 15 MG TAB PO SCH (17:12)
[2023-03-13] MEDS: Donepezil HCl 10 MG TAB PO SCH (20:32)
[2023-03-13] MEDS: Ezetimibe 10 MG TAB PO SCH (20:32)
[2023-03-14] MEDS: Levothyroxine Sodium 112 MCG TAB PO SCH (05:23)
[2023-03-14] MEDS: Gabapentin 300 MG CAP PO SCH ×3 (08:13→20:04)
[2023-03-14] MEDS: Digoxin 0.125 MG TAB PO SCH (08:14)
[2023-03-14] MEDS: Aspirin 81 mg Enteric Coated Tablet PO SCH (08:14)
[2023-03-14] MEDS: Lorazepam 1 MG TAB PO SCH ×2 (08:14→20:04)
[2023-03-14] MEDS: Rivaroxaban 15 MG TAB PO SCH (17:32)
[2023-03-14] MEDS: Donepezil HCl 10 MG TAB PO SCH (20:02)
[2023-03-14] MEDS: Ezetimibe 10 MG TAB PO SCH (20:02)
[2023-03-15] MEDS: Levothyroxine Sodium 112 MCG TAB PO SCH (05:19)
[2023-03-15] MEDS: Digoxin 0.125 MG TAB PO SCH (08:04)
[2023-03-15] MEDS: Aspirin 81 mg Enteric Coated Tablet PO SCH (08:05)
[2023-03-15] MEDS: Gabapentin 300 MG CAP PO SCH ×3 (08:05→20:56)
[2023-03-15] MEDS: Lorazepam 1 MG TAB PO SCH ×2 (08:05→20:55)
[2023-03-15] MEDS: Rivaroxaban 15 MG TAB PO SCH (17:09)
[2023-03-15 19:53] VITALS: TEMP 97.5
[2023-03-15] MEDS: Donepezil HCl 10 MG TAB PO SCH (20:56)
[2023-03-15] MEDS: Ezetimibe 10 MG TAB PO SCH (20:56)
[2023-03-16] MEDS: Acetaminophen 500 MG TAB PO PRN (00:23)
[2023-03-16] MEDS: Levothyroxine Sodium 112 MCG TAB PO SCH (05:54)
[2023-03-16] MEDS: Lorazepam 1 MG TAB PO SCH (08:15)
[2023-03-16] MEDS: Digoxin 0.125 MG TAB PO SCH (08:15)
[2023-03-16] MEDS: Aspirin 81 mg Enteric Coated Tablet PO SCH (08:15)
[2023-03-16] MEDS: Gabapentin 300 MG CAP PO SCH (08:16)
[2023-03-16 09:16] VITALS: BP 115/45
== END 2023-03-16 11:00 | DRG 947 ==
LOC: MADMS 17:00
PROVIDERS: ADMIT Family Medicine; ATTEND Family Medicine
DX: R53.1 Weakness (principal); L89.153 Pressure ulcer of sacral region, stage 3; R53.2 Functional quadriplegia; N30.00 Acute cystitis without hematuria; G30.9 Alzheimer's disease, unspecified; F02.80 Dementia in other diseases classified elsewhere, unspecified severity, without behavioral disturbance, psychotic disturbance, mood disturbance, and anxiety; G62.89 Other specified polyneuropathies; K21.9 Gastro-esophageal reflux disease without esophagitis; M19.90 Unspecified osteoarthritis, unspecified site; G89.29 Other chronic pain; E03.9 Hypothyroidism, unspecified; G25.0 Essential tremor; I48.0 Paroxysmal atrial fibrillation; Z66 Do not resuscitate; L98.429 Non-pressure chronic ulcer of back with unspecified severity; Z95.0 Presence of cardiac pacemaker; Z88.1 Allergy status to other antibiotic agents; Z88.2 Allergy status to sulfonamides; Z88.8 Allergy status to other drugs, medicaments and biological substances; Z79.82 Long term (current) use of aspirin; Z79.01 Long term (current) use of anticoagulants; Z79.899 Other long term (current) drug therapy; I69.391 Dysphagia following cerebral infarction; Z97.8 Presence of other specified devices; R13.10 Dysphagia, unspecified
CPT/HCPCS: 71045; 80053; 81001; 82565; 85014; 85018; 85049; 87086